=== PATIENT | male | born 1945 | race Caucasian/White ===

== ENCOUNTER 2017-12-24 15:00 | Outpatient (RCR) | payer MEDICARE, MEDICAID, SELFPAY | END 2017-12-24 15:01 | disposition home or self-care (01) | LOC: PT 15:00 | PROVIDERS: PCP Family Medicine; Visit Provider Nurse Practitioner Family | DX: I70.235 Atherosclerosis of native arteries of right leg with ulceration of other part of foot (principal); L97.521 Non-pressure chronic ulcer of other part of left foot limited to breakdown of skin | CPT/HCPCS: 97162; 97597 ==

== ENCOUNTER → 2021-03-07 10:09 | Outpatient (CLI) | payer MEDICARE, MEDICAID, SELFPAY ==
--- NOTE | 2021-03-07 10:27 | XR_ITS ---
PROCEDURE: XR FOOT WT BEARING LT 3V CLINICAL INDICATION: infected heel ulcer COMPARISON: No exams were available for comparison FINDINGS: No fracture or dislocation. No lytic or blastic change. There is normal mineralization. The joint spaces are well-preserved. No significant degenerative/arthritic changes. No erosive changes evident. Other findings: Small calcaneal spur.. No bony erosive changes evident. Pes planus noted. IMPRESSION: No acute findings. Dictated by: Kolby Chao MD 03/07/2021 11:33 Kolby Chao MD in [place] 03/07/2021 11:33
== END ==
PROVIDERS: PCP Nurse Practitioner; Visit Provider Nurse Practitioner
DX: L97.409 Non-pressure chronic ulcer of unspecified heel and midfoot with unspecified severity (principal); Z51.89 Encounter for other specified aftercare
CPT/HCPCS: 73630

== ENCOUNTER → 2021-03-24 10:01 | Outpatient (CLI) | payer MEDICARE, MEDICAID, SELFPAY ==
[2021-03-24 10:38] LABS: Basophils % 0.4 % (0.1-2.0); Eosinophils # 0.1 K/mm3 (0.0-0.4); Eosinophils % 1.7 % (0.1-12.0); Lymphocytes # 2.6 K/mm3 (0.7-4.5); Lymphocytes % 30.9 % (10-50); Mean Corpuscular HGB Conc 32.5 g/dL (31.8-35.4); Mean Corpuscular Volume 89.2 fl (80-94); Monocytes # 0.6 K/mm3 (0.1-1.0); Monocytes % 7.6 % (1.7-9.3); Neutrophils # 4.9 K/mm3 (1.8-7.8); Neutrophils % 59.4 % (37.0-80.0); Platelet Count 330 K/mm3 (142-424); Red Blood Count 5.15 M/mm3 (4.60-6.20); Red Cell Distribution Width 13.9 % (11.5-17.5); White Blood Count 8.3 K/mm3 (4.8-10.8)
[2021-03-24 10:57] LABS: Chloride 103 mmol/L (98-107); Sodium 139 mmol/L (136-145)
[2021-03-24 10:59] LABS: Alanine Aminotransferase 24 U/L (12-78); Aspartate Amino Transferase 32 U/L (17-59); Blood Urea Nitrogen 15 mg/dl (9-20); Estimated Glomerular Filt Rate 111 ml/min (>60); GFR (African American) 134 ML/MIN (>60)
[2021-03-24 11:00] LABS: Albumin Level 4.8 g/dl (3.5-5.0); Albumin/Globulin Ratio 1.6 (1.1-1.8); Alkaline Phosphatase 113 U/L (38-126); Bilirubin,Total 0.7 mg/dl (0.2-1.3); Calcium 10.1 mg/dl (8.4-10.2); Carbon Dioxide 25 mmol/L (22.0-30.0); Glucose 88 mg/dl (74-100); Total Protein,Serum 7.8 g/dl (6.3-8.2)
[2021-03-24 11:05] LABS: Erythrocyte Sedimentation Rate 4 mm/hr (0-20)
[2021-03-24 11:07] LABS: C-Reactive Protein 7.1 mg/L (0-4)
== END ==
PROVIDERS: Visit Provider Nurse Practitioner
DX: L89.622 Pressure ulcer of left heel, stage 2
CPT/HCPCS: 36415; 80053; 85025; 85651; 86140

== ENCOUNTER → 2022-10-23 14:41 | Outpatient (CLI) | payer MEDICARE, MEDICAID, SELFPAY ==
--- NOTE | 2022-10-23 14:45 | US_ITS ---
FINAL REPORT CLINICAL HISTORY: decreased pulses, bilateral wounds great toes and 2nd digits, possible gangrene, previous smoker, hx ME, bilateral claudication, bilateral rest pain. FINDINGS: ANKLE-BRACHIAL PRESSURE INDICES Pressure indices are as follows: RIGHT LOWER EXTREMITY: Ankle-brachial pressure index: 1.2 Comments: Normal LEFT LOWER EXTREMITY: Ankle-brachial pressure index: 1.1 Comments: Normal CONCLUSION: No evidence of significant obstructive peripheral vascular disease of the lower extremities Reviewed, Interpreted and Dictated by Harris Powell III, MD Transcribed by Jinny Torres Authenticated and [facility]
--- NOTE | 2022-10-23 14:47 | XR_ITS ---
FINAL REPORT CLINICAL HISTORY: wound FINDINGS: RIGHT FOOT 3 views of the right foot were obtained. There is no acute fracture or dislocation. Visualized joint spaces are normally aligned. Soft tissues are unremarkable. There is no evidence of bony erosion. IMPRESSION: No acute bony abnormality or evidence of bony erosion. Reviewed, Interpreted and Dictated by Harris Powell III, MD Transcribed by Belle Jacobs Authenticated and [facility]
--- NOTE | 2022-10-23 14:47 | XR_ITS ---
FINAL REPORT CLINICAL HISTORY: wound FINDINGS: RIGHT ANKLE 3 views of the right ankle were obtained. There is no acute fracture or dislocation. The mortise is intact. Visualized joint spaces are normally aligned. Soft tissue calcifications are noted. IMPRESSION: No acute bony abnormality or evidence of bony erosion. Reviewed, Interpreted and Dictated by Harris Powell III, MD Transcribed by Belle Jacobs Authenticated and [facility]
--- NOTE | 2022-10-23 14:47 | XR_ITS ---
FINAL REPORT CLINICAL HISTORY: wound FINDINGS: LEFT ANKLE Three views demonstrate no acute fracture or dislocation. The visualized joint spaces are normally aligned. There is a plantar calcaneal spur. The soft tissues are unremarkable. IMPRESSION: No acute bony abnormality or evidence of bony erosion. Reviewed, Interpreted and Dictated by Harris Powell III, MD Transcribed by Belle Jacobs Authenticated and [facility]
--- NOTE | 2022-10-23 14:47 | XR_ITS ---
FINAL REPORT CLINICAL HISTORY: ulcer FINDINGS: LEFT FOOT Three views of the left foot demonstrate no acute fracture or dislocation. There is no evidence of bony erosion. There is a small plantar spur. The visualized joint spaces are normally aligned. The soft tissues are unremarkable. IMPRESSION: No acute bony abnormality. No evidence of bony erosion. Reviewed, Interpreted and Dictated by Harris Powell III, MD Transcribed by Belle Jacobs Authenticated and . [facility]
[2022-10-23 16:27] LABS: Basophils # 0.1 K/mm3 (0-0.2); Basophils % 0.5 % (0.1-2.0); Eosinophils # 0.1 K/mm3 (0.0-0.4); Eosinophils % 0.7 % (0.1-12.0); Hematocrit 44.7 % (42.0-52.0); Hemoglobin 14.2 g/dL (14.1-18.0); Lymphocytes # 1.8 K/mm3 (0.7-4.5); Lymphocytes % 18.1 % (10-50); Mean Corpuscular HGB Conc 31.8 g/dL (31.8-35.4); Mean Corpuscular Hemoglobin 29.1 pg (27.0-31.2); Mean Corpuscular Volume 91.6 fl (80-94); Mean Platelet Volume 8.8 fl (7.4-10.4); Monocytes # 0.8 K/mm3 (0.1-1.0); Neutrophils # 7.3 K/mm3 (1.8-7.8); Neutrophils % 72.6 % (37.0-80.0); Platelet Count 450 K/mm3 (142-424); Red Blood Count 4.89 M/mm3 (4.60-6.20); Red Cell Distribution Width 14.3 % (11.5-17.5)
[2022-10-23 17:03] LABS: Chloride 101 mmol/L (98-107)
[2022-10-23 17:04] LABS: Potassium 4.4 mmoL/L (3.5-5.1); Sodium 140 mmol/L (136-145)
[2022-10-23 17:06] LABS: Alanine Aminotransferase 22 U/L (12-78); Albumin Level 4.1 g/dl (3.5-5.0); Albumin/Globulin Ratio 1.2 (1.1-1.8); Alkaline Phosphatase 102 U/L (38-126); Anion Gap 14.4 mEq/L (5-15); Aspartate Amino Transferase 24 U/L (17-59); Bilirubin,Total 0.6 mg/dl (0.2-1.3); Blood Urea Nitrogen 17 mg/dl (9-20); Carbon Dioxide 29 mmol/L (22.0-30.0); Estimated Glomerular Filt Rate 94 ml/min (>60); GFR (African American) 114 ML/MIN (>60); Globulin 3.3 g/dL (1.3-3.2); Glucose 99 mg/dl (74-100); Total Protein,Serum 7.4 g/dl (6.3-8.2)
[2022-10-23 17:07] LABS: Calcium 9.8 mg/dl (8.4-10.2)
[2022-10-23 17:17] LABS: C-Reactive Protein 66.7 mg/L (0-4)
[2022-10-23 18:00] LABS: Erythrocyte Sedimentation Rate 22 mm/hr (0-20)
== END ==
PROVIDERS: PCP Nurse Practitioner; Visit Provider Nurse Practitioner Family
DX: R09.89 Other specified symptoms and signs involving the circulatory and respiratory systems (principal); Z51.89 Encounter for other specified aftercare; L89.622 Pressure ulcer of left heel, stage 2; B95.7 Other staphylococcus as the cause of diseases classified elsewhere; B95.2 Enterococcus as the cause of diseases classified elsewhere
CPT/HCPCS: 36415; 73610; 73630; 80053; 85025; 85651; 86140; 87070; 87077; 87186; 87205; 93923

== ENCOUNTER 2023-10-04 08:42 | Emergency (ER) | payer MEDICARE, MEDICAID, SELFPAY ==
[2023-10-04 08:43] VITALS: BP 144/88; PULSE 95; RESP 18; TEMP 36.8; O2SAT 97; BMI 20.4
--- NOTE | 2023-10-04 08:47 | PC.NURSE ---
Dr. Andino at [facility] for patient eval
--- NOTE | 2023-10-04 08:57 | CT_ITS ---
FINAL REPORT TECHNIQUE: Axial images were obtained of the cervical spine by computed tomography. Coronal and sagittal reconstruction process performed. This study was performed with techniques to keep radiation doses as low as reasonably achievable (ALARA). Individualized dose reduction techniques using automated exposure control or adjustment of mA and/or kV according to the patient''s size were employed. CLINICAL HISTORY: fall, head/face injury COMPARISON: None FINDINGS: There is advanced disc space narrowing of C3-4, C4-5, C5-6, and C6-7. There is endplate sclerosis. Posterior osteophyte formation is noted. C2-3: No significant spinal canal stenosis or neuroforaminal narrowing. C3-4: Large right posterolateral disc protrusion with osteophytes. High-grade right neuroforaminal narrowing. C4-5: Endplate hypertrophy moderate to high-grade bilateral neuroforaminal narrowing. C5-6: Moderate to high-grade bilateral neuroforaminal narrowing. C6-7: Mild endplate hypertrophy. Mild bilateral neuroforaminal narrowing. C7-T1: No significant spinal canal stenosis or neuroforaminal narrowing. IMPRESSION: Advanced changes of degenerative disc disease with high-grade neuroforaminal narrowing on the right at C3-4 and bilaterally at C4-5 and C5-6. Reviewed, Interpreted and Dictated by Everardo Luna MD Transcribed by Nelida Price Authenticated and [facility]
--- NOTE | 2023-10-04 08:57 | CT_ITS ---
FINAL REPORT TECHNIQUE: Axial CT images were performed through the head. Coronal reformatted images were submitted. This study was performed with techniques to keep radiation doses as low as reasonably achievable (ALARA). Individualized dose reduction techniques using automated exposure control or adjustment of mA and/or kV according to the patient's size were employed. CLINICAL HISTORY: fall, head/face injury COMPARISON: None FINDINGS: There is moderate atrophy. There are moderate changes of chronic microvascular ischemia. There is encephalomalacia within the anterior limb of the right internal capsule. There is no evidence of hemorrhage. There is no mass or edema identified. There is no abnormal extra-axial fluid seen. There is old healed fracture deformity of the right maxillary sinus involving the anterior and lateral pradhan. There is scalp edema in the right frontal region. IMPRESSION: Scalp edema without acute intracranial process. Reviewed, Interpreted and Dictated by Everardo Luna MD Transcribed by Nelida Price Authenticated and . [facility]
--- NOTE | 2023-10-04 08:57 | CT_ITS ---
FINAL REPORT TECHNIQUE: Multiple axial CT sections were performed through the face without IV contrast. Coronal reconstruction images were performed. This study was performed with techniques to keep radiation doses as low as reasonably achievable (ALARA). Individualized dose reduction techniques using automated exposure control or adjustment of mA and/or kV according to the patient's size were employed. CLINICAL HISTORY: fall, head/face injury COMPARISON: None FINDINGS: There is old healed fracture deformity at the right anterior and lateral wall of the maxillary sinus. There is mild indentation of the superior right maxillary sinus, probably due to old orbital floor fracture. There are minimal changes of chronic sinusitis in the left maxillary sinus. There is no fracture. There are no air-fluid levels. IMPRESSION: Chronic changes without acute abnormality. Reviewed, Interpreted and Dictated by Everardo Luna MD Transcribed by Nelida Price Authenticated and [facility]
--- NOTE | 2023-10-04 08:59 | ED_ITS ---
Discharge Plan Disposition Patient Disposition: Home, Self-Care Prescriptions Prescriptions: No Action mupirocin 2 % ointment TOPICAL lisinopril 20 mg tablet 20 mg PO cephalexin 500 mg capsule 500 mg PO ticagrelor 90 mg tablet 90 mg PO sertraline 25 mg tablet 25 mg PO ropinirole 2 mg tablet 2 mg PO omeprazole 40 mg capsule,delayed release(DR/EC) 40 mg PO atorvastatin 40 mg tablet 40 mg PO doxycycline hyclate 100 mg capsule 100 mg PO BID 14 Days Qty: 28 0RF levofloxacin 750 mg tablet 750 mg PO DAILY 14 Days Qty: 14 0RF Santyl 250 unit/gram ointment 1 applic topical DAILY Qty: 30 4RF Rx Instructions: Apply to wounds as directed once daily for 30 days. right 1st 3.0 x 3.0 cm, 2nd 2.0 x 2.0 cm, left 1st 2.0 x 2.5 cm, 2nd 2.0 x 1.5 cm, 4th 1.0 x 1.0 cm Activity Restrictions/Add. Instructions Additional Instructions/Restrictions: You have a small nondisplaced maxillary sinus fracture which was read by radiologist is chronic but given your injury and tenderness in this area this is most likely an acute fracture. This will not need surgical intervention you may follow-up with your primary care doctor or with an ENT or facial surgeon if he would like. No evidence of any intracranial injury or bleeding or cervical spine injury or bleeding. The Dermabond and Steri-Strip apparatus should fall off in 1 to 2 weeks. Return with any worsening symptoms. Clinical Impressions Clinical Impression: Minor head injury, Face lacerations, Fall, Closed fracture of maxillary sinus Discharge ED Provider: Ok Andino General Adult HPI General Chief complaint: Fall Stated complaint: [id number] fell, hit head,wound Time Seen by Provider: 10/04/23 08:47 History of Present Illness HPI narrative: Is a 78-year-old male presenting after a fall and head injury. States that he has cataracts which caused him to be unable to see very well without with his dog this morning could not see and had a mechanical fall where he fell and struck his face on his 's 4 moore . Patient states that he had some bleeding but had no loss of conscious no persistent nausea vomiting or changes in mental status. Also requests a tetanus shot because he does not know when the last time he had a tetanus vaccination was. Related Data Home Medications Medication Instructions Recorded Confirmed atorvastatin 40 mg tablet 40 mg PO 03/07/21 10/30/22 cephalexin 500 mg capsule 500 mg PO 03/07/21 10/30/22 lisinopril 20 mg tablet 20 mg PO 03/07/21 10/30/22 mupirocin 2 % topical ointment topical 03/07/21 10/30/22 omeprazole 40 mg capsule,delayed 40 mg PO 03/07/21 10/30/22 release ropinirole 2 mg tablet 2 mg PO 03/07/21 10/30/22 sertraline 25 mg tablet 25 mg PO 03/07/21 10/30/22 ticagrelor 90 mg tablet 90 mg PO 03/07/21 10/30/22 Previous Rx's Medication Instructions Recorded doxycycline hyclate 100 mg capsule 100 mg PO BID 14 days #28 caps 10/30/22 levofloxacin 750 mg tablet 750 mg PO DAILY 14 days #14 tabs 10/30/22 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 Social History (Reviewed 10/30/22 @ 10:07 by Alesia Patterson [facility]) Smoking Status: Former smoker tobacco type: smokeless tobacco alcohol intake: current current occupational status: retired Travel in the last 8 weeks: None ROS Obtained: Yes All systems reviewed & no additional complaints except as documented Physical Exam General General appearance: alert Expanded Head Exam Head image: 1. laceration 2. laceration ; both of which are superficial with minimal gaping edges Respiratory Respiratory exam: Present normal lung sounds bilaterally Cardiovascular Cardiovascular exam: Absent tachycardia Neurological Exam Neurological exam: Present alert and oriented X3 Medical Decision Making Anthony Inquiry Pt receiving controlled substance: No Vital Signs: 10/04/23 08:43 10/04/23 09:00 Temperature 98.2 F Temperature Source Oral Pulse Rate 83 Pulse Rate [Right] 95 H Respiratory Rate 18 20 Blood Pressure 133/91 H Blood Pressure [Right Arm] 144/88 H Blood Pressure Mean 110 Blood Pressure Mean [Right Arm] 106 Blood Pressure Source [Right Arm] Automatic Cuff 02 Sat by Pulse Oximetry 97 98 Oxygen Delivery Method Room Air Orders (Tests/Meds): ED MEDICATIONS Discontinued Medications Generic Name Dose Route Start Last Admin Trade Name Daniele PRN Reason Stop Dose Admin Tetanus/Reduced Diphtheria/Acell Pertussis 0.5 ml 10/04/23 08:57 10/04/23 09:15 Tet/Diphth/Pert-Adult 0.5ml Syringe IM 10/04/23 08:58 0.5 ml .ONCE ONE Administration ORDERS Category Date Time Status CT cervical spine wo con Stat Cat Scan 10/04/23 08:[address] facial bones wo con Stat Cat Scan 10/04/23 08:[address] head/brain wo con Stat Cat Scan 10/04/23 08:57 Taken Medical Decision Narrative: Patient is a 78-year-old male with above history GCS of 15 nonfocal neurologic exam has a facial/head injury. Given his age we will get a CT scan of his head face and cervical spine. His lacerations were closed with Steri-Strips and Dermabond. Tetanus was updated will reassess after CT scans no injuries e lsewhere. CTs performed which I personally interpreted which showed no acute intracranial abnormality no acute cervical spine fracture dislocation there is degenerative changes but nothing acute. Regarding his face this was read as normal by radiology but on my personal interpretation there is a small nondisplaced maxillary sinus fracture and patient is focally tender there radiology read this is likely chronic but I believe this is an acute fracture. This should not need surgical intervention very mild injury I explained this to the patient he has been advised he can follow-up with his primary care doctor with an ENT or facial surgeon if he would like otherwise this should heal on its own. No indication for any prophylactic antibiotics. Wound management discussed patient was discharged in stable condition with return precautions emphasized. Procedures Laceration Laceration 1: Site: face Side (If applicable): right Size (cm): 5 Description: linear Depth: simple, single layer Pre-repair: irrigated extensively Skin layer closed with: Dermabond Laceration 2: Side (If applicable): right Size (cm): 1 Description: irregular and clean Depth: simple, single layer Pre-repair: irrigated extensively Skin layer closed with: Dermabond (and steri strips on both lacerations ) Critical Care Critical Care Time Critical Care Time: No
[2023-10-04 09:00] VITALS: BP 133/91; PULSE 83; RESP 20; O2SAT 98
[2023-10-04] MEDS: TET/DIPHTH/PERT-ADULT 0.5ML SYRINGE 0.5 ML IM (09:15)
--- NOTE | 2023-10-04 09:30 | PC.NURSE ---
PT TO CT
--- NOTE | 2023-10-04 10:59 | PC.NURSE ---
Called radiology to check the status of facial bone ct scan. Prelim read are not available to images sent. [facility] is attempting to re-send the correct images.
--- NOTE | 2023-10-04 11:25 | PC.NURSE ---
DR LYONS AT BEDSIDE TO UPDATE PT AND FAMILY
[2023-10-04 11:33] VITALS: BP 133/91; PULSE 83; RESP 20; TEMP 36.8; O2SAT 98
== END 2023-10-04 11:34 | disposition home or self-care (01) ==
PROVIDERS: Emergency Provider Student in an Organized Health Care Education/Training Program; PCP Nurse Practitioner
DX: S02.40CA Maxillary fracture, right side, initial encounter for closed fracture; S01.81XA Laceration without foreign body of other part of head, initial encounter; I10 Essential (primary) hypertension; K21.9 Gastro-esophageal reflux disease without esophagitis; Z23 Encounter for immunization; Z87.891 Personal history of nicotine dependence; W22.8XXA Striking against or struck by other objects, initial encounter
CPT/HCPCS: 12011; 70450; 70486; 72125; 90471; 90715; 99285

== ENCOUNTER 2025-08-16 15:34 | Emergency (ER) | payer MEDICARE, MEDICAID, SELFPAY ==
--- OUTSIDE RECORDS SUMMARY | 2025-07-02 05:15 | XMS_ITS | Continuity of Care Document ---
Author Organization [facility] Phone Care Team Providers Care Timber Incisor Operator Name Role Phone BRENNA DANG Primary Care THAD WALKER Unavailable THAD WALKER Primary Attending THAD WALKER Admitting ALLERGIES AND ADVERSE REACTIONS ALLERGIES AND ADVERSE REACTIONS Code System Allergy Substance Adverse Reaction Date Reaction (Severity) Comment Status Reported By Updated By No Known Allergies [email or web address] on January 21, 2025 8:43:30 PM [facility] FAMILY HISTORY RELATION: Father Status: LIVING SNOMED-CT Diagnosis Age At Onset [id number] Alzheimer's disease RELATION: Father Status: Cause of : O/E - senile - old age Age at : 90's SNOMED-CT Diagnosis Age At Onset Information not available RELATION: Mother Status: Cause of : Unknown Age at : 70's SNOMED-CT Diagnosis Age At Onset [id number] Heart disease RELATION: Mother Status: Cause of : Unknown Age at : Unknown SNOMED-CT Diagnosis Age At Onset Information not available RESULTS Patient: NAYA Bruce JR Date of : 1945 LABORATORY RESULTS ORDER 100: CBC AUTO W DIFF ( LOINC: 33820-6) ORDER DATE: July 01, 2025 1:24:00 AM [facility] Specimen Source: Whole Blood Specimen Type: Whole blood s ample PERFORMING LAB: [address] [id number] Result Comment: Final Result Date: July 01, 2025 2:26:00 AM UTC (TECH: EB1) LOINC TEST FLAG RESULT REFERENCE RANGE UPDA VIVEK BY 6690-2 Leukocytes [#/volume] in Blood by Automated count N 8.4 10^3/uL 4.5 10^3/uL - 11.5 10^3/uL July 01, 2025 2:26:00 AM UTC (TECH: EB1) 789-8 Erythrocytes [#/volume] in Blood by Automated count N 4.91 10^6/uL 4.25 10^6/uL - 5.57 10^6/uL July 01, 2025 2:26:00 AM UTC (TECH: EB1) 718-7 Hemoglobin [Mass/volume] in Blood N 14.5 g/dL 13.5 g/dL - 17.2 g/dL July 01, 2025 2:26:00 AM UTC (TECH: EB1) 81417-5 Hematocrit [Volume Fraction] of Blood N 43.6 % 42.0 % - 52.0 % July 01, 2025 2:26:00 AM UTC (TECH: EB1) 787-2 Erythrocyte mean corpuscular volume [Entitic volume] by Automated count N 88.8 fl 80 fl - 95 fl July 01, 2025 2:26:00 AM UTC (TECH: EB1) 68246-9 Erythrocyte mean corpuscular hemoglobin [Entitic mass] in Blood from [place] by Automated count N 29.5 pg 27.0 pg - 34.0 pg July 01, 2025 2:26:00 AM UTC (TECH: EB1) 13752-9 Erythrocyte mean corpuscular hemoglobin concentration [Mass/volume] in Blood from Fetus by Automated count N 33.3 g/dL 32.0 g/dL - 36.0 g/dL July 01, 2025 2:26:00 AM UTC (TECH: EB1) 22431-4 Platelets [#/volume] in Blood N 220 10^3/uL 150 10^3/uL - 450 10^3/uL July 01, 2025 2:26:00 AM UTC (TECH: EB1) 52289-8 Erythrocyte distribution width [Ratio] H 15.4 % 12.3 % - 15.1 % July 01, 2025 2:26:00 AM UTC (TECH: EB1) 12360-6 Platelet mean volume [Entitic volume] in Blood by Automated count H 12.3 fl 7.4 fl - 10.4 fl July 01, 2025 2:26:00 AM UTC (TECH: EB1) 89150-4 Granulocytes/100 leukocytes in Blood by Automated count N 41.3 % 40 % - 75 % July 01, 2025 2:26:00 AM UTC (TECH: EB1) 736-9 Lymphocytes/100 leukocytes in Blood by Automated count N 29.2 % 15 % - 57 % July 01, 2025 2:26:00 AM UTC (TECH: EB1) 5905-5 Monocytes/100 leukocytes in Blood by Automated count H 21.7 % 4.0 % - 12.0 % July 01, 2025 2:26:00 AM UTC (TECH: EB1) 713-8 Eosinophils/100 leukocytes in Blood by Automated count N 0.7 % 0.0 % - 4.0 % July 01, 2025 2:26:00 AM UTC (TECH: EB1) 706-2 Basophils/100 leukocytes in Blood by Automated count N 0.4 % 0.0 % - 1.0 % July 01, 2025 2:26:00 AM UTC (TECH: EB1) 96693-8 Immature granulocytes [#/volume] in Blood H 6.7 % 0.0 % - 0.8 % June 2:26:00 AM UTC (TECH: EB1) 50356-9 Granulocytes [#/volume] in Blood by Automated count N 3.48 10^3/uL July 01, 2025 2:26:00 AM UTC (TECH: EB1) 731-0 Lymphocytes [#/volume] in Blood by Automated count N 2.45 10^3/uL July 01, 2025 2:26:00 AM UTC (TECH: EB1) 742-7 Monocytes [#/volume] in Blood by Automated count N 1.82 10^3/uL July 01, 2025 2:26:00 AM UTC (TECH: EB1) 711-2 Eosinophils [#/volume] in Blood by Automated count N 0.06 10^3/uL July 01, 2025 2:26:00 AM UTC (TECH: EB1) 704-7 Basophils [#/volume] in Blood by Automated count N 0.03 10^3/uL July 01, 2025 2:26:00 AM UTC (TECH: EB1) 34414-5 Immature granulocytes [#/volume] in Blood N 0.56 10^3/uL June 2:26:00 AM UTC (TECH: EB1) 32466-7 Manual differential performed [Presence] in Blood N YES July 01, 2025 2:26:00 AM UTC (TECH: EB1) 44843-5 Neutrophils.segmente d/100 leukocytes in Blood by Automated count L 31 % 36 % - 66 % July 01, 2025 2:26:00 AM UTC (TECH: EB1) 52592-8 Neutrophils.band form/100 leukocytes in Blood by Automated count N 1 % 0.0 % - 8.0 % July 01, 2025 2:26:00 AM UTC (TECH: EB1) 736-9 Lymphocytes/100 leukocytes in Blood by Automated count H 42 % 15 % - 41 % July 01, 2025 2:26:00 AM UTC (TECH: EB1) 5905-5 Monocytes/100 leukocytes in Blood by Automated count H 23 % 2 % - 9 % July 01, 2025 2:26:00 AM UTC (TECH: EB1) 99960-3 Lymphocytes Variant/100 leukocytes in Blood by Automated count H 2 % 0 % - 0 % July 01, 2025 2:26:00 AM UTC (TECH: EB1) 83883-9 Metamyelocytes [#/volume] in Blood N 1 % 0 % - 1 % June 2:26:00 AM UTC (TECH: EB1) 84524-7 Erythrocytes [Morphology] in Blood by Automated count N NORMAL NORMAL July 01, 2025 2:26:00 AM UTC (TECH: EB1) 778-1 Platelets [#/volume] in Blood by Manual count N ADEQUATE ADEQUATE July 01, 2025 2:26:00 AM UTC (TECH: EB1) 9317-9 Platelet adequacy [Presence] in Blood by Light microscopy N NORMAL NORMAL June 2:26:00 AM UTC (TECH: EB1) ORDER 200: BASIC METABOLIC P ARAVIND (LOINC: 41132-7) ORDER DATE: July 01, 2025 1:24:00 AM [facility] Specimen Source: Plasma Specimen Type: Plasma specim en PERFORMING LAB: [address] [id number] Result Comment: Final Result Date: July 01, 2025 2:07:00 AM UT (TECH: EB1) LOINC TEST FLAG RESULT REFERENCE RANGE UPDA VIVEK BY 2951-2 Sodium [Moles/volume] in Serum or Plasma N 141 mmol/L 136 mmol/L - 145 mmol/L July 01, 2025 2:07:00 AM UT (TECH: EB1) 2823-3 Potassium [Moles/volume] in Serum or Plasma N 3.6 mmol/L 3.5 mmol/L - 5.1 mmol/L July 01, 2025 2:07:00 AM UT (TECH: EB1) 5-0 Chloride [Moles/volume] in Serum or Plasma N 105 mmol/L 98 mmol/L - 107 mmol/L July 01, 2025 2:07:00 AM UT (TECH: EB1) 2027-9 Carbon dioxide, total [Moles/volume] in Serum or Plasma N 25 mmol/L 21 mmol/L - 32 mmol/L July 01, 2025 2:07:00 AM UT (TECH: EB1) 49806-6 Anion gap 3 in Serum or Plasma N 11.0 July 01, 2025 2:07:00 AM UT (TECH: EB1) 2345-7 Glucose [Mass/volume] in Serum or Plasma N 100 mg/dL 70 mg/dL - 110 mg/dL July 01, 2025 2:07:00 AM UTC (TECH: EB1) 3094-0 Urea nitrogen [Mass/volume] in Serum or Plasma N 14 mg/dL 7 mg/dL - 18 mg/dL July 01, 2025 2:07:00 AM UTC (TECH: EB1) 2160-0 Creatinine [Mass/volume] in Serum or Plasma N 0.9 mg/dL 0.8 mg/dL - 1.3 mg/dL July 01, 2025 2:07:00 AM UT (TECH: EB1) 3097-3 Urea nitrogen/Creatinine [Mass Ratio] in Serum or Plasma N 15.6 9 - July 01, 2025 2:07:00 AM UT (TECH: EB1) 67719-9 Glomerular filtration rate/1.73 sq M.predicted by Creatinine-based formula (MDRD) N 87 mL/min >60 July 01, 2025 2:07:00 AM UT (TECH: EB1) 40126-8 Osmolality of Serum or Plasma by calculated by sum of electrolytes N 294 mosm/kg 275 mosm/kg - 301 mosm/kg July 01, 2025 2:07:00 AM UT (TECH: EB1) 41785-2 Calcium [Mass/volume] in Serum or Plasma N 10.0 mg/dL 8.5 mg/dL - 10.1 mg/dL July 01, 2025 2:07:00 AM UT (TECH: EB1) ORDER 300: TROPONIN QUANT (L OINC: 64893-1) ORDER DATE: July 01, 2025 1:24:00 AM UT Specimen Source: Plasma Specimen Type: Plasma specim en PERFORMING LAB: [address] [id number] Result Comment: Final Result Date: July 01, 2025 2:07:00 AM [facility] (TECH: EB1) LOINC TEST [place] [address]-5 Troponin I.cardiac panel - Serum or Plasma by High sensitivity method N 19 ng/L 0 ng/L - 76 ng/L June 2:07:00 AM [facility] (TECH: EB1) ORDER 500: ALCOHOL ETHANOL Q UANT (LOINC: 5645-7) ORDER DATE: July 01, 2025 1:24:00 AM UT Specimen Source: Serum/Plasm a Specimen Type: Acellular blo od (serum or plasma) specimen PERFORMING LAB: [address] [id number] Result Comment: Final Result Date: July 01, 2025 2:07:00 AM UT (TECH: EB1) LOINC TEST FLAG RESULT REFERENCE RANGE UPDA VIVEK BY 5645-7 Ethanol [Mass/volume] in Urine N <3 mg/dL 0 mg/dL - 10 mg/dL July 01, 2025 2:07:00 AM UT (TECH: EB1) ORDER 600: URINE DRUG SCREEN - EXL MAX (LOINC: 40609-0) ORDER DATE: July 01, 2025 1:24:00 AM UTC Specimen Source: URINE Specimen Type: Urine specime n PERFORMING LAB: [facility] [address] [facility] [id number] Result Comment: Final Result Date: July 01, 2025 3:20:00 AM UTC (TECH: EB1) LOINC TEST FLAG [place] [address]-8 Amphetamine+Methamph et amine [Presence] in Urine N NEGATIVE NEGATIVE July 01, 2025 3:20:00 AM UTC (TECH: EB1) 3377-9 Barbiturates [Presence] in Urine N NEGATIVE NEGATIVE June 3:20:00 AM UTC (TECH: EB1) 81979-6 Benzodiazepine metabolites [Presence] in Urine by Screen method N NEGATIVE NEGATIVE July 01, 2025 3:20:00 AM UTC (TECH: EB1) 3414-0 Buprenorphine [Presence] in Urine N NEGATIVE NEGATIVE June 3:20:00 AM UTC (TECH: EB1) 3397-7 Cocaine [Presence] i n Urine N NEGATIVE NEGATIVE July 01, 2025 3:20:00 AM UTC (TECH: EB1) 33973-9 Methadone [Presence] in Specimen N NEGATIVE NEGATIVE July 01, 2025 3:20:00 AM UTC (TECH: EB1) 86505-3 Opiates [Mass/volume ] in Specimen N NEGATIVE NEGATIVE July 01, 2025 3:20:00 AM UTC (TECH: EB1) 35860-3 oxyCODONE [Presence] in Specimen N NEGATIVE NEGATIVE July 01, 2025 3:20:00 AM UTC (TECH: EB1) 3427-2 Cannabinoids [Presence] in Urine N NEGATIVE NEGATIVE June 3:20:00 AM UTC (TECH: EB1) 79645-2 Phencyclidine [Presence] in Specimen N NEGATIVE NEGATIVE July 01, 2025 3:20:00 AM UTC (TECH: EB1) 42211-0 Fentanyl [Presence] in Urine N NEGATIVE NEGATIVE July 01, 2025 3:20:00 AM UTC (TECH: EB1) 43539-6 Tricyclic antidepressants [Presence] in Specimen N NEGATIVE NEGATIVE July 01, 2025 3:20:00 AM UTC (TECH: EB1) 00923-8 Internal control result N PASS PASS July 01, 2025 3:20:00 AM UTC (TECH: EB1) ORDER 700: UA AND MICRO/CULT IF INDICATED (LOINC: 55545-4) ORDER DATE: July 01, 2025 1:24:00 AM UTC Specimen Source: URINE Specimen Type: Urine specime n PERFORMING LAB: [address] [id number] Result Comment: Final Result Date: July 01, 2025 2:48:00 AM UTC (TECH: EB1) LOINC TEST FLAG RESULT REFERENCE RANGE UPDA VIVEK BY 5778-6 Color of Urine N yellow YELLOW Septe [facility] 2024 2:48:00 AM UTC (TECH: EB1) 5767-9 Appearance of Urine N clear CLEAR July 01, 2025 2:48:00 AM UTC (TECH: EB1) 5792-7 Glucose [Mass/volume ] in Urine by Test strip N NORM NORMAL July 01, 2025 2:48:00 AM UTC (TECH: EB1) 55668-1 Bilirubin.total [Mass/volume] in Urine by Automated test strip N NEGATIVE NEGATIVE July 01 2:48:00 AM UTC (TECH: EB1) 5797-6 Ketones [Mass/volume ] in Urine by Test strip N NEGATIVE NEGATIVE July 01, 2025 2:48:00 AM UTC (TECH: EB1) 2965-2 Specific gravity of Urine N 1.025 1.005 - 1.035 July 01 2:48:00 AM UTC (TECH: EB1) 61890-3 Erythrocytes [#/volume] in Urine by Automated test strip N 25 (1+) /mcL NEGATIVE June 152024 2:48:00 AM UTC (TECH: EB1) 84035-3 pH of Urine by Automated test strip N 5.00 5.0 - 7.5 June 152024 2:48:00 AM UTC (TECH: EB1) 71297-8 Protein [Presence] i n Urine by Test strip N 100 (2+) mg/dL NEGATIVE June 2:48:00 AM UTC (TECH: EB1) 36353-8 Urobilinogen [Mass/volume] in Urine by Automated test strip N 1 mg/dL NORMAL July 01 2:48:00 AM UTC (TECH: EB1) 41645-5 Nitrate [Presence] i n Urine N NEGATIVE NEGATIVE July 01 2:48:00 AM UTC (TECH: EB1) 57483-9 Leukocytes [#/volume ] in Urine by Test strip N TRACE () /mcL NEGATIVE July 01, 2025 2:48:00 AM UTC (TECH: EB1) 07402-1 Other elements in Urine sediment N NOT REQUIRED July 01 2:48:00 AM UTC (TECH: EB1) 10332-6 Microscopic observation [Identifier] in Urine sediment by Light microscopy N YES July 01 2:48:00 AM UTC (TECH: EB1) 92581-8 Erythrocytes [#/area ] in Urine sediment by Microscopy high power field N 5-10 0-3 July 01 2:48:00 AM UTC (TECH: EB1) 5821-4 Leukocytes [#/area] in Urine sediment by Microscopy high power field N 5-10 NONE SEEN July 01 2:48:00 AM UTC (TECH: EB1) 07243-8 Epithelial cells.squamous [#/area] in Urine sediment by Microscopy high power field N 0-3 NONE SEEN July 01 2:48:00 AM UTC (TECH: EB1) 5769-5 Bacteria [#/area] in Urine sediment by Microscopy high power field N TRACE NONE SEEN July 01 2:48:00 AM UTC (TECH: EB1) 55245-0 Calcium oxalate crystals [#/area] in Urine sediment by Microscopy high power field N 5-10 NONE SEEN July 01 2:48:00 AM UTC (TECH: EB1) 86537-9 Mucus [#/area] in Urine sediment by Microscopy low power field N 1+ NONE SEEN July 01 2:48:00 AM UTC (TECH: EB1) 7446-1 Amorphous sediment [Presence] in Urine sediment by Light microscopy 1+ NONE SEEN July 01 2:48:00 AM UTC (TECH: EB1) LABORATORY NARRATIVE RESULTS Information is not available RADIOLOGY RESULTS Information is not available PATHOLOGY NARRATIVE RESULTS Information is not available MICROBIOLOGY RESULTS No Micro Labs/Results Exist for Patient BLOOD ADMIN RESULTS Information is not available MEDICATIONS HOME MEDICATIONS Status RXNORM NDC Medication Dose Route Frequency Dates Comments Reported By Updated By Drug Treatment Unknown DISCHARGE MEDICATIONS Status RXNORM NDC Medication Dose Route Frequency Dates Dis pense Data Comments Physician Updated By No Discharge Medication Info rmation Available INPATIENT MEDICATIONS Status RXNORM NDC Medication Dose Route Frequency Rat e Quantity Dates Indication Dispense Data Comments Physician Updated [facility] [id number] [phone] cloNIDine (CATAPRES) 0.1 MG TABS 0.1 MG ORAL ONE TIME ONLY Start: 2024 1:30:0 0 AM [place] End: 2024 1:30:0 0 AM [place] AARON ONEIL MD INTERFAC ED on 2024 1:30:00 AM [facility] SOCIAL HISTORY SOCIAL HISTORY - Smoking Status SNOMED-CT Social History Element Description Effective Dates Offered Cessation Comment Updated By [id number] Historical Tobacco smoking status Former Smoker [email or web address] on January 21, 2025 8:44:11 PM [facility] [id number] Historical Tobacco smoking status Current Every Day Smoker [email or web address] on September 19, 2024 10:26:01 PM [facility] [id number] Historical Tobacco smoking status Never Smoked [email or web address] on November 21, 2017 9:04:18 PM [facility] SOCIAL HISTORY - Gender Sex: Male SOCIAL HISTORY - Status : status i nformation is not available Intention in Next Year: intention information is not available SOCIAL HISTORY - Assessments Code System Description Status Date Value of Assessment Updated By Comment Assessment Information is no t available SOCIAL HISTORY - [place] Affiliation [place] information is not av ailable SOCIAL HISTORY - Legal Sex Legal Sex information is not available SOCIAL HISTORY - Sexual Behavior Sexual Orientation Gender Identity SNOMED-CT Description SNO MED -CT Description Activity Level No of Partners Partner Type UpdatedBy Information is not available SOCIAL HISTORY - Occupation Occupation information is no t available HEALTH CONCERNS Problems Concern Status Health Concern problem infor mation not available. Smoking Status Status Years Used Consumed packs p er day Health Concern smoking histo ry information not available. Family History Concern Status Health Concern family histor y information not available. ENCOUNTERS ENCOUNTER INFORMATION Reason for Visit HIGH BLOOD PRESSURE Admission July 01, 2025 1:14:00 AM [place] C [address] [id number] Discharge July 01, 2025 2:38:00 AM [place] C DISCHARGED TO HOME OR SELF CARE ENCOUNTER DIAGNOSES Notes information is not yaya ilable. Code System Diagnosis Onset Date Diagnosis information is not available. ABSTRACT DIAGNOSES Code System Diagnosis Updated By Abatement Date R03.0 ICD10 ELEVATED BLOOD-P RESSURE READING, WITHOUT DIAGNOSIS OF HYPERTENSION [id number] on July 02, 2025 10:15:11 AM UTC I10 ICD10 ESSENTIAL (PRIMA RY) HYPERTENSION [id number] on July 02, 2025 10:15:11 AM UTC I10 ICD10 ESSENTIAL (PRIMA RY) HYPERTENSION [id number] on July 02, 2025 10:15:11 AM UTC I16.9 ICD10 HYPERTENSIVE CRI SIS, UNSPECIFIED [id number] on July 02, 2025 10:15:11 AM UTC Z72.0 ICD10 TOBACCO USE [id number] on Jun 10:15:11 AM UTC CARE TEAM Care Timber Incisor Operator Role BRENNA DANG Primary Care THAD WALKER Referring ARCELIA WALKER Primary Attending ARCELIA WALKER Admitting CARE TEAM CARE food demonstrator Role on Team Location Telecom Status Start Date End Jordi e Updated By AARON ONEIL MD, MD Referring normal July 01, 2025 1:24:14 AM [place] July 01, 2025 2:38:00 AM UTC [id number] on July 01, 2025 1:24:14 AM [facility] AARON ONEIL MD, MD Attending normal July 01, 2025 1:24:14 AM [place] July 01, 2025 2:38:00 AM UTC [id number] on July 01, 2025 1:24:14 AM [facility] AARON ONEIL MD, MD Admitting normal July 01, 2025 1:24:14 AM UTC July 01, 2025 2:38:00 AM UTC [id number] on July 01, 2025 1:24:14 AM [place] LAURENCE IRBY APRN PCP normal July 01, 2025 1:14:36 AM UTC July 01, 2025 2:38:00 AM UTC [id number] on July 01, 2025 1:24:14 AM UTC
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
--- OUTSIDE RECORDS SUMMARY | 2025-07-29 04:00 | XMS_ITS | Encounter Summary ---
Author Organization [facility] Address [address] [place] [id number] Care Team Providers Care Machining And Assembly Supervisor Name Role Phone Karime Stevens Primary Care Provider [phone] Reason for Referral * Diagnostic Imaging (Routine) - Closed Specialty Diagnoses / Procedures Referred By Nicolette fitzgerald Referred To Contact Diagnoses Coronary artery disease of [place] artery of [place] heart with stable angina pectoris Procedures Adult Transthoracic Echo Complete W/ Cont if Necessary Per Protocol Britt Manjarrez MD [address] [place] [address] [place] [address] Phone: tel: fax: [facility] [address] [place] [address] Phone: tel: fax: Referral ID Status Reason Start Date Expiration Date Visits Re quested Visits Authorized [id number] Closed 07/29/2025 10/28/2026 1 1 Reason for Visit * Cardiac Stress Testing (Routine) - Canceled Specialty Diagnoses / Procedures Referred By Contchanelle fitzgerald Referred To Contact Diagnoses Coronary artery disease of [place] artery of [place] heart with stable angina pectoris Chest pain, atypical Procedures Stress Test With Myocardial Perfusion One Day Alpa Miller, MIR [address] [place] [address] Phone: tel: fax: [address] [place] [address] Phone: tel: Referral ID Status Reason Start Date Expiration Date V isits Requested Visits Authorized Canceled 06/04/2025 09/03/2026 4 4 Encounter Details Date Type Department Care Team (Latest Contact Info) Description 07/29/2025 5:00 AM EDT Outside Facility Service [facility] [address] [place] [address] Britt Manjarrez MD [address] [place] [address] Coronary artery disease of [place] artery of [place] heart with stable angina pectoris; Chest pain, atypical Social History Tobacco Use Types Packs/Day Years Used Date Smoking Tobacco: Former Cigarettes 1 15 1 978 - 1992 Passive Smoke Exposure: Past Smokeless Tobacco: Never Alcohol Use Standard Drinks/Week Comments Not Currently [...] on file documented as of this encounter Plan of Treatment Upcoming Encounters Date Type Department Care Team (Late st Contact Info) Description 09/15/2025 1:30 PM EST Office Visit [facility] [address] [place] [address] Bhargavi Crouch APRN [address] [place] [address] documented as of this encounter Procedures Procedure Name Priority Date/Time Associated Diagnosis Comments OUTSIDE NON-INVASIVE CARDIOLOGY STUDY Routine 07/29/2025 Coronary artery disease of [place] artery of [place] heart with stable angina pectoris Chest pain, atypical documented in this encounter Results * ECHO COMPLETE W/ DOPPLER AND COLOR FLOW (08/05/2025 2:05 PM EDT) EF(MOD-bp) 51.3 % LVIDd 4.6 cm LVIDs 3.3 cm IVSd 1.17 cm LVPWd 1.13 cm FS 28.1 % IVS/LVPW 1.04 cm ESV(cubed) 35.3 ml LV Sys Vol (BSA corrected) 48.6 cm2 EDV(cubed) 94.8 ml LV Rowe Vol (BSA corrected) 94.2 cm2 LV mass(C)d 190.3 grams LVOT area 3.8 cm2 LVOT diam 2.20 cm EDV(MOD-sp2) 119.0 ml EDV(MOD-sp4) 154.0 ml ESV(MOD-sp2) 56.7 ml ESV(MOD-sp4) 79.4 ml SV(MOD-sp2) 62.3 ml SV(MOD-sp4) 74.6 ml SVi(MOD-SP2) 38.1 ml/m2 SVi(MOD-SP4) 45.7 ml/m2 SVi (LVOT) 35.6 ml/m2 EF(MOD-sp2) 52.4 % EF(MOD-sp4) 48.4 % MV E max az 41.4 cm/sec MV A max az 100.0 cm/sec MV dec time 0.26 sec MV E/A 0.41 Med Peak E' Az 4.7 cm/sec Lat Peak E' Az 4.5 cm/sec TR max az 260.0 cm/sec Avg E/e' ratio 9.00 SV(LVOT) 58.2 ml RVIDd 2.49 cm RV Base 2.09 cm RV Mid 2.38 cm RV Length 7.1 cm TAPSE (>1.6) 1.95 cm RV S' 14.4 cm/sec LA dimension (2D) 3.4 cm LV V1 max 79.1 cm/sec LV V1 max PG 2.5 mmHg LV V1 mean PG 1.00 mmHg LV V1 VTI 15.3 cm Ao pk az 109.0 cm/sec Ao max PG 4.8 mmHg Ao mean PG 3.0 mmHg Ao V2 VTI 20.9 cm ISAIAH(I,D) 2.8 cm2 Dimensionless Index 0.73 (DI) MV max PG 3.3 mmHg MV mean PG 1.00 mmHg MV V2 VTI 18.2 cm MV P1/2t 73.4 msec MVA(P1/2t) 3.0 cm2 MVA(VTI) 3.2 cm2 MV dec slope 162.5 cm/sec2 TR max PG 27.0 mmHg RVSP(TR) 30.0 mmHg RAP systole 3.0 mmHg PA V2 max 85.0 cm/sec Ao root diam 3.9 cm Sinus 4.0 cm Ascending aorta 3.4 cm LA ESV Index (BP) 36.0 ml/m2 Anatomical Region Laterality Modality Ultrasound Narrative 08/10/2025 12:58 PM EDT Left ventricular systolic function is normal. Calculated left ventricular EF = 51.3% Left ventricular ejection fraction appears to be 51 - 55%. Left ventricular diastolic function is consistent with (grade I) impaired relaxation. Left atrial volume is mildly increased. Moderate mitral valve regurgitation is present with multiple jets noted. Estimated right ventricular systolic pressure from tricuspid regurgitation is normal (<35 mmHg). Mild dilation of the aortic root is present. Mild dilation of the sinuses of Valsalva is present. Left Ventricle Left ventricular systolic function is normal. Calculated left ventricular EF = 51.3% Left ventricular ejection fraction appears to be 51 - 55%. Normal left ventricular cavity size noted. Left ventricular wall thickness is consistent with borderline concentric hypertrophy. All left ventricular wall segments contract normally. Left ventricular diastolic function is consistent with (grade I) impaired relaxation. Right Ventricle Normal right ventricular cavity size, wall thickness, systolic function and septal motion noted. Left Atrium Left atrial volume is mildly increased. Right Atrium Normal right atrial cavity size noted. Right atrial volume is 12 ml. Mitral Valve Mild mitral annular calcification is present. There is mild calcification of the mitral valve anterior and posterior leaflet(s). Moderate mitral valve regurgitation is present with multiple jets noted. No significant mitral valve stenosis is present. Tricuspid Valve The tricuspid valve is structurally normal with no significant regurgitation or significant stenosis present. Estimated right ventricular systolic pressure from tricuspid regurgitation is normal (<35 mmHg). Aortic Valve The aortic valve is abnormal in structure. There is mild calcification of the aortic valve. There is mild thickening of the aortic valve. The aortic valve appears trileaflet. No significant aortic valve regurgitation is present. No hemodynamically significant aortic valve stenosis is present. Pulmonic Valve The pulmonic valve is grossly normal in structure. There is no significant pulmonic valve regurgitation present. There is no pulmonic valve stenosis present. Pericardium The pericardium is normal. There is no evidence of pericardial effusion. . Greater Vessels Mild dilation of the aortic root is present. Mild dilation of the sinuses of Valsalva is present. No dilation of the ascending aorta is present. The aortic arch not well visualized. The descending aorta not well visualized. Normal IVC inspiratory collapse of greater than 50% noted. The main pulmonary artery is grossly normal. Study Quality The study is technically difficult for diagnosis. The quality of the study is limited with poor acoustic windows. Normal sinus was the predominant rhythm observed during the procedure. Wall Scoring Score Index: 1.18 The following segments are hypokinetic: basal inferior, basal inferolateral and basal anterolateral. All other segments are normal. us Britt Manjarrez MD CV ECHO ORDERABLES Final Res ult * External Stress Procedure (07/29/2025) Anatomical Region Laterality Modality Other Alpa Miller APRN CV CARDIAC SERVICES ORDERABL ES Final Result documented in this encounter Visit Diagnoses Diagnosis Coronary artery disease of [place] artery of [place] heart with stable angina pectoris Chest pain, atypical Coronary artery disease of [place] artery of [place] heart with stable angina pectoris documented in this encounter Care Teams Machining And Assembly Supervisor Relationship Specialty Start Date End Date Karime [place] [address] [place] [address] PCP - General Nurse Practitioner 07/06/23 documented as of this encounter
--- OUTSIDE RECORDS SUMMARY | 2025-08-01 02:35 | XMS_ITS | Continuity of Care Document ---
Author Organization [facility] Phone Care Team Providers Care Inside Sales Trainer Name Role Phone AME NI Admitting AME NI Primary Attending BRENNA DANG Primary Care AME NI Unavailable ALLERGIES AND ADVERSE REACTIONS ALLERGIES AND ADVERSE REACTIONS Code System Allergy Substance Adverse Reaction Date Reaction (Severity) Comment Status Reported By Updated By No Known Allergies [email or web address] on January 21, 2025 8:43:30 PM UT FAMILY HISTORY RELATION: Father Status: LIVING SNOMED-CT Diagnosis Age At Onset [id number] Alzheimer's disease RELATION: Father Status: Cause of : O/E - senile - old age Age at : 90's SNOMED-CT Diagnosis Age At Onset Information not available RELATION: Mother Status: Cause of : Unknown Age at : 70's SNOMED-CT Diagnosis Age At Onset [id number] Heart disease RELATION: Mother Status: Cause of : Unknown Age at : Unknown SNOMED-CT Diagnosis Age At Onset Information not available RESULTS Patient: NAYA BERNICE Bruce JR Date of : 1945 LABORATORY RESULTS Information is not available LABORATORY NARRATIVE RESULTS Information is not available RADIOLOGY RESULTS ORDER 100: NM MYOCARD SPEC W M/EF BEAM WARPER (LOINC: 10417-6) ORDER DATE: July 29, 2025 1:48:00 PM UT PERFORMING LAB: [address] [id number] Final Result Date: July 152024 11:11:43 PM UTC (TECH: [id number]) Nuclear stress test [facility] 2 EXAM: NM MYOCARD SPEC WM/EF BEAM WARPER [id number] DATE OF EXAM: 07/29/2025 09:48:00 PROVIDER: Britt Manjarrez MD TECHNIQUE: The patient was studied with a 1-day protocol. Lexiscan was used for vasodilatation due to lack of coordination and inability to walk treadmill. Rest SPECT dose was 9.45 mCi of sestamibi. Stress SPECT dose was 33.14 mCi of sestamibi. Gated SPECT imaging was also performed. FINDINGS: Baseline EKG showed normal sinus rhythm. Heart rate varied from 70 to 100 beats per minute. Blood pressure varied from 157/104 to 193/98. No arrhythmias developed. No reversal agent was needed. Raw imaging showed no unusual uptake. Nuclear ejection fraction calculated at 39% at rest and 32% at stress. There is global hypokinesis. Perfusion imaging showed a large basilar lateral reversible defect consistent with ischemia. Transient ischemic dilatation ratio was 0.88. CONCLUSIONS: Mild to moderately reduced left ventricular systolic function. Would correlate this with echocardiogram as there is some motion artifact on the study. Large basal lateral area of reversible ischemia. Intermediate to high risk study. Would consider invasive angiography if having clinical symptoms. DICTATED BY: Britt Manjarrez MD CW/MODL /[id number] Electronically Signed By: SEBASTIÁN TAPIA MD 2025-07-30 11:17:23 PATHOLOGY NARRATIVE RESULTS Information is not available [...] Dispense Data Comments Physician Updated By Dionicio [facility] [id number] REGADENOSON 0.4 MG/5ML SOLN 0.4 MG INTRAV ENOUS ONE TIME ADMINISTRA TION (UNSCHEDUL ED) Start: 2024 1:54:0 0 PM UT End: Octobe r 2024 3:15:3 1 PM UT RAINE Lawrence PRODUCTION MACHINE OPERATOR [id number] on July 29, 2025 3:15:00 PM UT SOCIAL HISTORY SOCIAL HISTORY - Smoking Status SNOMED-CT Social History Element Description Effective Dates Offered Cessation Comment Updated By [id number] Historical Tobacco smoking status Former Smoker [email or web address] on January 21, 2025 8:44:11 PM UT [id number] Historical Tobacco smoking status Current Every Day Smoker [email or web address] on September 19, 2024 10:26:01 PM UT [id number] Historical Tobacco smoking status Never Smoked [id number] on November 21, 2017 9:04:18 PM UT SOCIAL HISTORY - Gender Sex: Male SOCIAL HISTORY - Status : status i nformation is not available Intention in Next Year: intention information is not available SOCIAL HISTORY - Assessments Code System Description Status Date Value of Assessment Updated By Comment Assessment Information is no t available SOCIAL HISTORY - Elem Affiliation Elem information is not av ailable SOCIAL HISTORY - Legal Sex Legal Sex information is not available SOCIAL HISTORY - Sexual Behavior Sexual Orientation Gender Identity SNOMED-CT Description SNO MED -CT Description Activity Level No of Partners Partner Type UpdatedBy Information is not available SOCIAL HISTORY - Occupation Occupation information is no t available VITAL SIGNS PATIENT VITAL SIGNS This section displays the mo st recent value for each vital sign as of August 01, 2025 7:35:02 AM UT Loinc Code Vital Sign Activity Date Result Updated By 8302-2 Body height July 29, 2025 2:41:44 PM UT 162.56 cm (64.0 in) [id number] on July 29, 2025 2:41:[place] [address]-1 Body mass index (BMI ) [Ratio] July 29, 2025 2:41:44 PM UTC 22.819 kg/m2 3140-1 Body Surface Area Derived From Formula July 29, 2025 2:41:44 PM UT 1.6443 m2 54164-6 Body weight Measured July 29, 2025 2:41:44 PM UTC 60.3 kg (133.0 lb) [id number] on July 29, 2025 2:41:44 PM UT 8462-4 Diastolic blood pressure July 29, 2025 1:20:00 PM UT 104.0 mm[Hg] 8867-4 Heart rate July 29, 2025 1:20:00 PM [facility] 82 /min 41023-4 Oxygen saturation in Arterial blood by Pulse oximetry July 29, 2025 1:20:00 PM [facility] 98.0 % 8480-6 Systolic blood pressure July 29, 2025 1:20:00 PM [facility] 157.0 mm[Hg] PEDIATRIC GROWTH CHART - VITAL SIGNS This section displays Head C ircumference Percentile, Weight for Length Percentile and BMI Percentile Loinc Code Pediatric Measure Age (Months) Result Updat ed By No Pediatric Growth Chart Pe rcentile Information Available. HEALTH CONCERNS Problems Concern Status Health Concern problem infor mation not available. Smoking Status Status Years Used Consumed packs p er day Health Concern smoking histo ry information not available. Family History Concern Status Health Concern family histor y information not available. ENCOUNTERS ENCOUNTER INFORMATION Reason for Visit R07.89 Admission July 29, 2025 1:04:[address] [address] Discharge July 29, 2025 6:04:00 PM [facility] DISCHARGED TO HOME OR SELF CARE ENCOUNTER DIAGNOSES Notes information is not yaya ilable. Code System Diagnosis Onset Date Diagnosis information is not available. ABSTRACT DIAGNOSES Code System Diagnosis Updated By Abatement Date I25.118 ICD10 ATHEROSCLEROTIC HEART DISEASE OF [place] CORONARY ARTERY WITH OTHER FORMS OF ANGINA PECTORIS [id number] on August 01, 2025 7:34:44 AM [facility] R07.89 ICD10 OTHER CHEST PAIN [id number] on August 01, 2025 7:34:44 AM [facility] I25.118 ICD10 ATHEROSCLEROTIC HEART DISEASE OF [place] CORONARY ARTERY WITH OTHER FORMS OF ANGINA PECTORIS [id number] on August 01, 2025 7:34:44 AM [facility] R07.89 ICD10 OTHER CHEST PAIN [id number] on August 01, 2025 7:34:44 AM [facility] CARE TEAM Care Inside Sales Trainer Role AME NI Admitting AME NI Primary Attending BRENNA DANG Primary Care AME NI Referring CARE TEAM CARE locomotive mechanic Role on Team Location Telecom Status Start Date End Jordi e Updated By LAURENCE IRBY APRN PCP normal July 10, 2025 1:27:10 PM [facility] July 29, 2025 6:04:00 PM [facility] [id number] on July 10, 2025 1:27:10 PM [facility] RAINE Lawrence APRN Referring normal July 10, 2025 1:27:10 PM UTC July 29, 2025 6:04:00 PM UTC [id number] on July 10, 2025 1:27:10 PM UTC RAINE Lawrence APRN Attending normal July 10, 2025 1:27:10 PM UTC July 29, 2025 6:04:00 PM UTC [id number] on July 10, 2025 1:27:10 PM UTC RAINE Lawrence APRN Admitting normal July 10, 2025 1:27:10 PM UTC July 29, 2025 6:04:00 PM UTC [id number] on July 10, 2025 1:27:10 PM UTC
--- OUTSIDE RECORDS SUMMARY | 2025-08-05 12:30 | XMS_ITS | Encounter Summary ---
Author Organization [facility] Address [address] [place] [id number] Care Team Providers Care Director Online Marketing Name Role Phone Karime Stevens Primary Care Provider [phone] Reason for Visit * Diagnostic Imaging (Routine) - Closed Specialty Diagnoses / Procedures Referred By Contac t Referred To Contact Diagnoses Coronary artery disease of [place] artery of [place] heart with stable angina pectoris Procedures Adult Transthoracic Echo Complete W/ Cont if Necessary Per Protocol Britt Manjarrez MD [address] [place] [address] Phone: tel: fax: [facility] [place] [address] [place] [address] Phone: tel: fax: Referral ID Status Reason Start Date Expiration Date Visits Re quested Visits Authorized [id number] Closed 07/29/2025 10/28/2026 1 1 Encounter Details Date Type Department Care Team (Latest Contact Info) Description 08/05/2025 1:30 PM EDT Ancillary Procedure [facility] [place] [address] Coronary artery disease of [place] artery of [place] heart with stable angina pectoris Social History Tobacco Use Types Packs/Day Years Used Date Smoking Tobacco: Former Cigarettes 1 15 978 - 1992 Passive Smoke Exposure: Past [...] Sign Reading Time Taken Comments Blood Pressure 148/80 08/05/2025 1:16 PM EDT Pulse - - Temperature - - Respiratory Rate - - Oxygen Saturation - - Inhaled Oxygen Concentration - - Weight 59.4 kg (131 lb) 08/05/2025 1:16 PM EDT Height 162.6 cm (5' 4 ) 08/05/2025 1:16 PM EDT Body Mass Index 22.49 08/05/2025 1:16 PM EDT documented in this encounter Plan of Treatment Upcoming Encounters Date Type Department Care Team (Late st Contact Info) Description 09/15/2025 1:30 PM EST Office Visit [facility] [address] [place] [address] Bhargavi Crouch APRN [address] [place] [address] documented as of this encounter Procedures Procedure Name Priority Date/Time Associated Diagnosis Comments ECHO COMPLETE W/ DOPPLER AND COLOR FLOW Routine 08/05/2025 2:05 PM EDT Coronary artery disease of [place] artery of [place] heart with stable angina pectoris documented in this encounter Results * ECHO [...] MD CV ECHO ORDERABLES Final Res ult documented in this encounter Visit Diagnoses Diagnosis Coronary artery disease of [place] artery of [place] heart with stable angina pectoris documented in this encounter Care Teams Director Online Marketing Relationship Specialty Start Date End Date Karime [place] [address] PCP - General Nurse Practitioner 07/06/23 documented as of this encounter
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
[2025-08-16] VITALS (8 sets, daily range): BP systolic 113–140; BP diastolic 71–103; PULSE 60–102; RESP 14–26; TEMP 36.6–36.8; O2SAT 95–100; BMI 25.8
--- NOTE | 2025-08-16 15:43 | ECG_ITS ---
APPROVED REPORT Exam: Resting ECG HR:66 bpm ECG Measurements Heart Rate 66 AXES OK 172 P 64 QRSd 101 QRS -34 QT 418 T 77 QTc 431 Conclusion SINUS RHYTHM LEFT AXIS DEVIATION [QRS AXIS < -30] ABNORMAL ECG UNCONFIRMED REPORT Normal sinus rhythm. No ST elevation or depression. QTc normal at 431 Electronically signed by : PATRIZIA COE, 08/16/2025 21:17:21
--- NOTE | 2025-08-16 15:46 | XR_ITS ---
PROCEDURE INFORMATION: Exam: XR Chest Exam date and time: 08/16/2025 3:43 PM Age: 80 years old Clinical indication: Pain; Cough; Chest pressure; Additional info: Cough, chest pain TECHNIQUE: Imaging protocol: Radiologic exam of the chest. Views: 2 views. COMPARISON: CT CERVICAL SPINE WO CON 10/04/2023 9:42 AM FINDINGS: Tubes, catheters and devices: EKG leads project over the chest and may obscure pathology. Lungs: Unremarkable. No consolidation. Pleural spaces: Unremarkable. No gross pleural effusion. No pneumothorax. Heart/Mediastinum: Unremarkable. No cardiomegaly. Bones/joints: There are costochondral calcifications. IMPRESSION: No acute cardiopulmonary process.
--- NOTE | 2025-08-16 15:49 | [facility].EDCP ---
Discharge Plan Disposition Patient Disposition: Home, Self-Care Prescriptions Prescriptions: No Action mupirocin 2 % ointment TOPICAL lisinopril 20 mg tablet 20 mg PO cephalexin 500 mg capsule 500 mg PO ticagrelor 90 mg tablet 90 mg PO sertraline 25 mg tablet 25 mg PO ropinirole 2 mg tablet 2 mg PO omeprazole 40 mg capsule,delayed release(DR/EC) 40 mg PO atorvastatin 40 mg tablet 40 mg PO doxycycline hyclate 100 mg capsule 100 mg PO BID 14 Days Qty: 28 0RF levofloxacin 750 mg tablet 750 mg PO DAILY 14 Days Qty: 14 0RF Santyl 250 unit/gram ointment 1 applic topical DAILY Qty: 30 4RF Rx Instructions: Apply to wounds as directed once daily for 30 days. right 1st 3.0 x 3.0 cm, 2nd 2.0 x 2.0 cm, left 1st 2.0 x 2.5 cm, 2nd 2.0 x 1.5 cm, 4th 1.0 x 1.0 cm Referrals Follow up/Referrals: Provider,Referral, MD [Referring, Medical] - See instructions Activity Restrictions/Add. 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 If you develop any new or worsening symptoms, or if you become concerned for your help for any reason, return to the emergency department for evaluation. Clinical Impressions Clinical Impression: Chest pain Print Language Print Language: Czech Discharge ED Provider: Cristian Fay General Chief Complaint: Chest Pain Stated Complaint: Chest Pain Time Seen by Provider: 08/16/25 15:35 Mode of Arrival: EMS Source of Information: Patient Description of Symptoms (Recalled from ER Triage Doc. by RN): Reports that when he got up this morning he had left sided chest pain. Patient is very loud and talking inappropriately. History of Present Illness HPI narrative: Shai Garsia is a 80M with a history of hypertension, coronary artery disease, MD with stents and believes that he is on a blood thinner but does not know what he takes who presents to the emergency department via EMS for chest pain. Patient states that approximately noon today, he woke up from sleep and then tried to sit up and developed a pain in the left side of his chest. He does report some shortness of breath. He also reports a recent cough. He received aspirin and 1 nitroglycerin and route. He states that his pain has since resolved. Patient denies any tobacco use. He denies any leg swelling, abdominal pain, fevers. Related Data Home Medications ?Medication ?Instructions ?Recorded ?Confirmed atorvastatin 40 mg tablet 40 mg PO 03/07/21 10/30/22 cephalexin 500 mg capsule 500 mg PO 03/07/21 10/30/22 lisinopril 20 mg tablet 20 mg PO 03/07/21 10/30/22 mupirocin 2 % topical ointment topical 03/07/21 10/30/22 omeprazole 40 mg capsule,delayed 40 mg PO 03/07/21 10/30/22 release ropinirole 2 mg tablet 2 mg PO 03/07/21 10/30/22 sertraline 25 mg tablet 25 mg PO 03/07/21 10/30/22 ticagrelor 90 mg tablet 90 mg PO 03/07/21 10/30/22 Previous Rx's ?Medication ?Instructions ?Recorded doxycycline hyclate 100 mg capsule 100 mg PO BID 14 days #28 caps 10/30/22 levofloxacin 750 mg tablet 750 mg PO DAILY 14 days #14 tabs 10/30/22 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 Social History (Reviewed 10/30/22 @ 10:07 by Alesia Patterson [facility]) Smoking Status: Current every day smoker tobacco type: smokeless tobacco alcohol intake: current alcohol intake frequency: a few times a month current occupational status: retired Travel in the last 8 weeks?: None Have you lived/traveled outside US in past 30 days?: No Contact w/someone who lives/traveled outside US past 30 days?: No Exposure to someone with infectious disease in past 14 days?: No Do you have a fever (greater than 100.4 F or 38 C)?: No Have you tested positive for COVID-19?: No Exposed to someone with COVID-19 in past 14 days?: No Do you have a sore throat?: No Do you have a cough?: No Do you have any weakness?: No Do you have any diarrhea?: No Are you experiencing any unusual bleeding?: No Do you have any muscle aches/pain?: No Do you have any abdominal pain?: No Are you experiencing loss of taste or smell?: No Other Medical History Have you received the Pneumonia Vaccine: Yes ROS Obtained: Yes Systems reviewed as appropriate & no additional complaints except as documented Physical Exam General General appearance: alert and in no apparent distress Head Head exam: atraumatic Eye Eye exam: Present normal appearance ENT ENT exam: Present normal external ear exam Neck Neck exam: Present full ROM Chest Chest inspection: Present symmetric chest wall rise Respiratory Respiratory exam: Present normal lung sounds bilaterally; Absent respiratory distress, wheezes or stridor Cardiovascular Cardiovascular exam: Present regular rate and normal rhythm Abdominal Exam Abdominal exam: Present soft; Absent tenderness, guarding, rebound or rigidity exam: Present deferred Extremities Exam Extremities exam: Present normal inspection; Absent edema Back Exam Back exam: Present normal inspection Neurological Exam Neurological exam: Present alert and oriented X3 Psychiatric Psychiatric exam: Present normal affect Skin Skin exam: Present warm and dry HEART Score HEART Score HEART Score assessment performed?: Yes History (anamnesis): Slightly suspicious ECG: Normal Age: >65 years Risk factors: Atherosclerosis history Troponin: </= normal limit HEART Score: 4 Critical Care Critical Care Time Critical Care Time: No Medical Decision Making Anthony Inquiry Pt receiving controlled substance: No Vital Signs Vital Signs: 08/16/25 15:37 08/16/25 15:39 08/16/25 15:45 Temperature 97.9 F Temperature Source Oral Pulse Rate 83 102 H Pulse Rate [Radial] 80 Respiratory Rate 18 15 Blood Pressure 113/71 Blood Pressure [Right Arm] 113/71 Blood Pressure Mean [Right Arm] 85 Blood Pressure Source [Right Arm] Automatic Cuff Blood Pressure Position [Right Arm] Sitting 02 Sat by Pulse Oximetry 99 100 95 Oxygen Delivery Method Room Air Room Air Room Air 08/16/25 16:15 08/16/25 17:00 08/16/25 17:30 Temperature Temperature Source Pulse Rate 79 66 69 Pulse Rate [Radial] Respiratory Rate 25 H 14 Blood Pressure Blood Pressure [Right Arm] Blood Pressure Mean [Right Arm] Blood Pressure Source [Right Arm] Blood Pressure Position [Right Arm] 02 Sat by Pulse Oximetry 98 Oxygen Delivery Method Room Air 08/16/25 18:00 Temperature Temperature Source Pulse Rate 60 Pulse Rate [Radial] Respiratory Rate 26 H Blood Pressure Blood Pressure [Right Arm] Blood Pressure Mean [Right Arm] Blood Pressure Source [Right Arm] Blood Pressure Position [Right Arm] 02 Sat by Pulse Oximetry Oxygen Delivery Method Lab Data Labs: Lab Results 08/16/25 14:55: WBC 9.5, RBC 4.97, Hgb 14.4, Hct 45.2, MCV 90.9, MCH 29.0, MCHC 31.9, RDW 15.7, Plt Count 228, MPV 12.9 H, Neut % (Auto) 36.1 L, Lymph % (Auto) 42.0, Ida % (Auto) 19.2 H, Eos % (Auto) 1.2, Baso % (Auto) 0.2, Neut # (Auto) 3.4, Lymph # (Auto) 4.0, Ida # (Auto) 1.8 H, Eos # (Auto) 0.1, Baso # (Auto) 0.0, Total Counted 100, Neutrophils % (Manual) 39 L, Lymphocytes % (Manual) 42, Monocytes % (Manual) 15 H, Eosinophils % (Manual) 4 H, Platelet Estimate Normal, RBC Morphology Normal, Sodium 143, Potassium 4.0, Chloride 106, Carbon Dioxide 24, Anion Gap 17.0 H, BUN 17, Creatinine 0.90, Estimated Creat Clear 64, Estimated GFR 82, Est GFR ( Amer) 99, Glucose 97, Calcium 9.3, Total Bilirubin 0.9, AST 33, ALT 37, Alkaline Phosphatase 180 H, Troponin I < 0.01, NT-Pro-B Natriuret Pep 486 H, Total Protein 9.0 H, Albumin 4.6, Globulin 4.4 H, Albumin/Globulin Ratio 1.0 L, HCV Ab JEANNIE w/Rflx PCR Qn Negative, HIV Ag/Ab Combo Qual Negative 08/16/25 15:57: Troponin I < 0.01 08/16/25 14:55 08/16/25 14:55 Response Orders (Tests/Meds): ORDERS Category Date Time Status CXR 2 view (NOT portable) [XR chest 2V] Stat Exams 08/16/25 15:46 Completed BNP [NT Pro Brain Natriuretic Pep.] Stat Lab 08/16/25 14:55 Completed CBC w/Auto Diff [Complete Blood Count Auto Diff] Stat Lab 08/16/25 14:55 Completed CMP [Comprehensive Metabolic Panel] Stat Lab 08/16/25 14:55 Completed HIV Combo Stat Lab 08/16/25 14:55 Completed Hepatitis C Ab Qual. W/ RFX Stat Lab 08/16/25 14:55 Completed Troponin I Q3H Lab 08/16/25 15:57 Completed Troponin I Q3H Lab 08/16/25 22:00 Ordered Troponin I Stat Lab 08/16/25 14:55 Completed ECG Data Tracing #1: Attestation: I reviewed this ECG and interpreted as documented below: ECG Narrative: Normal sinus rhythm. No ST elevation or depression. QTc of 431. No T wave inversions MDM Narrative Medical Decision Narrative: Shai Garsia is a 80M with a history of hypertension, coronary artery disease, MD with stents and believes that he is on a blood thinner but does not know what he takes who presents to the emergency department via EMS for chest pain. Patient states that approximately noon today, he woke up from sleep and then tried to sit up and developed a pain in the left side of his chest. He does report some shortness of breath. He also reports a recent cough. He received aspirin and 1 nitroglycerin and route. He states that his pain has since resolved. Patient denies any tobacco use. He denies any leg swelling, abdominal pain, fevers. On arrival, patient is normotensive, heart rate within normal limits, afebrile, oxygen saturation 100% on room air. Physical exam, stated above, revealed a overall well-appearing male in no distress. He is speaking in full sentences. Cardiopulmonary exam reveals no murmurs or rubs. No wheezing, rales or rhonchi. Abdomen is soft, nontender nondistended. He has no edema in his lower extremities. Differential diagnosis includes, but is not limited to: ACS, pericarditis, pneumonia, viral respiratory illness, muscle strain, costochondritis. I have low concern for pulmonary embolism as patient is PERC negative. EKG without evidence of ischemia. See interpretation above Patient's workup shows no leukocytosis, no anemia, electrolytes within normal limits. Mildly elevated anion gap of 17. Liver enzymes and bili are within normal limits. Troponin less than 0.01. Will get 3-hour repeat troponin. NT proBNP very mildly elevated at 486. Chest x-ray interpreted by me personally. No focal consolidation, no pneumothorax, no widened mediastinum, no enlargement of the cardiac silhouette. Unremarkable chest x-ray. See radiology report for details. Heart score is 4. The patient was placed in observation status at 1700. Medical necessity for observational status is serial troponins. The patient was provided serial reevaluations and cardiac monitoring while awaiting results. Results of testing during observation are remarkable for: Negative troponin x 2. Patient was in ED observation for a total of 2 hours and 15 minutes. On reassessment, patient remains in stable condition. He states that this event occurred while he was trying to pull himself out of bed with his arm but he feels well at this time. I have low concern for cardiac etiology at this time but did encourage him to follow-up with his finished hardware erector, Dr. Hernandez, closely and return to the emergency department he had any new or worsening symptoms. All questions were answered. He was eager to get home at this time. Will discharge the patient in stable condition.
--- OUTSIDE RECORDS SUMMARY | 2025-08-16 15:52 | XMS_ITS | Encounter Summary ---
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 Name Role Phone Unavailable Primary Care Provider Unavailabl e Encounter Details Date Type Department Care Team (Late st Contact Info) Description 12/04/2019 Transcribed Document [facility] [address] [place] [address] ProviderPhyllis MD [facility] [place] [address] Social History Tobacco Use Types Packs/Day Years Used Date Smoking Tobacco: Never Assessed Sex and Gender Information Value Date Recorded Sex Assigned at Not on file Legal Sex Male 3:35 PM CDT Gender Identity Not on file Sexual Orientation Not on file documented as of this encounter Miscellaneous Notes * Cerner Conversion Note - Historical ProviderMD - 12/04/2019 11:35 AM 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 Pt placed on monitor, call pressley within reach, family at BS. Elizabeth Dougherty, RN - 12/04/2019 12:49 EST Electronically signed by [facility] Conversion Stallion Keeper Cerner at 02/01/2023 8:26 AM CDT documented in this encounter Plan of Treatment Not on file documented as of this encounter Visit Diagnoses Not on filedocumented in this encounter
--- OUTSIDE RECORDS SUMMARY | 2025-08-16 15:52 | XMS_ITS | Continuity of Care Document ---
Author Organization [employer], [employer] [facility] [employer] [facility] Address [address] [place] [id number] Care Team Providers Care Shipping Support Clerk Name Role Phone KARIME STEVENS Primary Care Provider KYRA Marshall Community Health Worker [phone] Assessment No assessment recorded. 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 FEED ADVISER Not available Not available Not available FOLLOW UP 2025 02:00P M Thu Stevens APRN Not available Not available Not available Lab None record ed. Referral None record ed. Procedures None record ed. Surgeries None record ed. Imaging None record ed. Medication Orders aspiri n 81 mg chewab le tablet 2024 025 [facility], [address] [place] [address], [id number], 07/23/2025 14:13:54 Brilin ta 90 mg tablet 2024 025 [facility], [address] [place] [address], [id number], 06/30/2025 12:46:37 melato fariha 10 mg capsul e 2024 025 [facility], [address] [place] [address], [id number], 06/30/2025 12:31:27 trazod one 50 mg tablet 2024 025 [facility], [address] [place] [address], [id number], 06/30/2025 12:46:38 atorva statin 80 mg tablet 2024 025 [facility], [address] [place] [address], [id number], 06/30/2025 12:46:33 ropini role 2 mg tablet 2024 025 [facility], [address] [place] [address], [id number], 06/30/2025 12:46:35 omepra zole 40 mg capsul e,sara yed releas e 2024 025 [facility], [address] [place] [address], [id number], 06/30/2025 12:46:37 sertra line 25 mg tablet 2024 025 [facility], [address] [place] [address], [id number], 06/30/2025 12:46:36 lisino pril 10 mg tablet 2024 025 [facility], [address] [place] [address], [id number], 06/30/2025 12:46:34 Ventol in HFA 90 mcg/ac tuatio n aeroso l inhale r 2024 025 [facility], [address] [place] [address], [id number], 06/30/2025 12:46:38 Patient TargetsNo targets recorded. Patient InstructionsNo instructions recorded. Reason for Referral None Reported. Problems Name Problem SNOMED Code Status Onset Date Resolution Date Notes Provider Name and Address Organization Details Recorded Time Hypothyr oidism 54207571 Active 2016 Problem Code: E03.8; Problem Code Type: ICD-10; Not Available [facility] 2 20:55:13 Mixed hyperlip idemia 433652620 Completed 201605/23/2017 Problem Code: E78.2; Problem Code Type: ICD-10; Alesia brown, [employer] 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 2 12:55:25 Hyperten sive disorder 94777382 Completed 201608/24/2017 Problem Code: I10; Problem Code Type: ICD-10; Not Available [facility] 2 20:55:14 Gastroes ophageal reflux disease without esophagi tis 798153125 Completed 201602/19/2018 Geetha Hayward NP [address] [place] [address], [phone] , [employer] 4 11:19:01 Idiopath ic osteoart hritis 840462869 Completed 201602/15/2018 Problem Code: M15.0; Problem Code Type: ICD-10; Not Available [facility] 2 20:55:15 Restless legs syndrome 06350731 Active 2016 Problem Code: G25.81; Problem Code Type: ICD-10; Not Available [facility] 2 20:55:16 Acquired hypothyr oidism 436028744 Completed 201602/19/2018 Problem Code: 244.8; Problem Code Type: ICD-9; Not Available [facility] 2 20:55:21 Benign essentia l hyperten radha 4960059 Completed 201603/01/2021 Problem Code: 401.1; Problem Code Type: ICD-9; Not Available [facility] 2 20:55:23 Gastroes ophageal reflux disease 558367286 Completed 201602/19/2018 Problem Code: 530.81; Problem Code Type: ICD-9; Not Available [facility] 2 20:55:23 Osteoart hrosis involvin g multiple sites but not designat ed as generali zed 65901411 Completed 201608/24/2017 Problem Code: 715.89; Problem Code Type: ICD-9; Not Available [facility] 2 20:55:25 Dizzines s and giddines s 781015267 Completed 201607/06/2022 Problem Code: R42; Problem Code Type: ICD-10; KYRA brown [place] [employer] [facility]. 2 12:55:25 Benign essentia l hyperten radha 0029458 Completed 201603/01/2021 Problem Code: 401.1; Problem Code Type: ICD-9; Not Available [facility] 2 20:55:24 Restless legs syndrome 09798031 Completed 201608/01/2018 Problem Code: G25.81; Problem Code Type: ICD-10; Not Available [facility] 2 20:55:13 Hyperten sive disorder 71494473 Active 2016 Problem Code: I10; Problem Code Type: ICD-10; Not Available [facility] 2 20:55:14 Cellulit is of left upper limb 66767828613 378913 Completed 201603/18/2017 Problem Code: L03.114; Problem Code Type: ICD-10; Not Available [facility] 2 20:55:15 Benign essentia l hyperten radha 2731844 Active 2016 Problem Code: 401.1; Problem Code Type: ICD-9; Not Available [facility] 2 20:55:23 Cellulit is and abscess of hand excludin g digits Completed 201603/18/2017 Problem Code: 682.4; Problem Code Type: ICD-9; Not Available [facility] 2 20:55:26 Calculus in pelviure teric junction 359195400 Completed 201605/20/2020 Problem Code: N20.1; Problem Code Type: ICD-10; Not Available [facility] 2 20:55:16 Polyuria 08903402 Completed 201605/03/2017 Problem Code: R35.8; Problem Code Type: ICD-10; Not Available [facility] 2 20:55:17 Kidney stone 54347041 Completed 201603/01/2021 Problem Code: 592.0; Problem Code Type: ICD-9; Not Available [facility] 2 20:55:24 Pain of right shoulder joint 56675334171 332415 Completed 201607/20/2017 Problem Code: M25.511; Problem Code Type: ICD-10; Not Available [facility] 2 20:55:15 Pain of left shoulder joint 49870594516 674207 Completed 201607/20/2017 Problem Code: M25.512; Problem Code Type: ICD-10; Not Available [facility] 2 20:55:21 Shoulder joint pain 875237709 Completed 201607/20/2017 Problem Code: 719.41; Problem Code Type: ICD-9; Not Available [facility] 2 20:55:26 Acute bronchit is 68326501 Completed 201710/31/2017 Problem Code: J20.9; Problem Code Type: ICD-10; Not Available [facility] 2 20:55:15 Cough 46366913 Completed 201710/31/2017 Problem Code: 786.2; Problem Code Type: ICD-9; Not Available [facility] 2 20:55:27 Influenz a 8188671 Completed 201712/22/2017 Problem Code: J10.1; Problem Code Type: ICD-10; Not Available [facility] 2 20:55:15 Influenz a with respirat ory manifest ation other than pneumoni a Completed 201712/22/2017 Problem Code: 487.1; Problem Code Type: ICD-9; Not Available [facility] 2 20:55:25 Bullous impetigo of napkin area 299877174 Completed 201701/11/2018 Not Available [facility] 2 20:55:20 Impetigo 83498369 Completed 201701/11/2018 Problem Code: 684; Problem Code Type: ICD-9; Not Available [facility] 2 20:55:24 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 2 12:55:26 Acute peptic ulcer without hemorrha ge AND without perforat ion 84499328 Completed 201702/04/2018 Problem Code: K27.3; Problem Code Type: ICD-10; Not Available [facility] 2 20:55:20 Ulcer of foot 66045628 Completed 201703/01/2021 Problem Code: 707.15; Problem Code Type: ICD-9; Not Available [facility] 2 20:55:25 Acute peptic ulcer 704291808 Completed 201702/04/2018 Problem Code: 533.30; Problem Code Type: ICD-9; Not Available [facility] 2 20:55:25 Ulcer of heel 664806968 Completed 201707/06/2022 Problem Code: 707.14; Problem Code Type: ICD-9; KYRA brown [employer] 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 2 12:55:26 Removal of suture Completed 201703/01/2021 Problem Code: V58.32; Problem Code Type: ICD-9; Not Available [facility] 2 20:55:30 Large prostate 290618004 Active 2017 Problem Code: N40.0; Problem Code Type: ICD-10; Not Available [facility] 2 20:55:16 Benign prostati c hyperpla lacey 154298584 Completed 201703/01/2021 Problem Code: 600.00; Problem Code Type: ICD-9; Not Available [facility] 2 20:55:26 Panic disorder without agorapho quinn 30756305 Completed 201703/01/2021 Problem Code: 300.01; Problem Code Type: ICD-9; Not Available [facility] 2 20:55:22 Pain of left shoulder joint 11119344473 266411 Completed 201704/09/2018 Problem Code: M25.512; Problem Code Type: ICD-10; Not Available [facility] 2 20:55:15 Shoulder joint pain 950778798 Completed 201704/09/2018 Problem Code: 719.41; Problem Code Type: ICD-9; Not Available [facility] 2 20:55:30 Sprain of shoulder rotator cuff 55889213124 4 Completed 201706/25/2018 Problem Code: S43.422D ; Problem Code Type: ICD-10; Not Available [facility] 2 20:55:27 Mild major depressi on, single episode 47090315 Active 2017 Problem Code: F32.0; Problem Code Type: ICD-10; Not Available [facility] 2 20:55:13 Depressi ve disorder 92931654 Completed 201703/01/2021 Problem Code: 311; Problem Code Type: ICD-9; Not Available [facility] 2 20:55:22 Tension- type headache 763464373 Active 2018 Problem Code: G44.209; Problem Code Type: ICD-10; Not Available [facility] 2 20:55:14 Dizzines s and giddines s 282844069 Completed 201805/20/2020 Problem Code: R42; Problem Code Type: ICD-10; KYRA brown [employer] 2 12:55:25 Left carotid artery occlusio n 53498353221 9105 Active 2018 Not Available [facility] 2 20:55:14 Chronic fatigue syndrome 83668489 Active 2018 Problem Code: R53.82; Problem Code Type: ICD-10; Not Available [facility] 2 20:55:17 Body mass index 20-24 - normal 309822911 Completed 201802/15/2021 KYRA brown [employer] 2 12:55:26 Counseli pipo for harmful pattern of substanc e use Active 2018 Problem Code: Z71.6; Problem Code Type: ICD-10; Not Available [facility] 2 20:55:21 Influenz a vaccine needed 85393571242 06 Completed 201805/20/2020 Problem Code: Z23; Problem Code Type: ICD-10; KYRA brown, [employer] 2 12:55:25 Cellulit is of toe of left foot 37312853163 132661 Completed 201805/20/2020 Problem Code: L03.032; Problem Code Type: ICD-10; Not Available [facility] 2 20:55:15 Tension- type headache 406726404 Completed 201805/17/2021 Problem Code: G44.209; Problem Code Type: ICD-10; Not Available [facility] 2 20:55:13 Mixed hyperlip idemia 142161278 Active 2018 Problem Code: E78.2; Problem Code Type: ICD-10; Alesia brown, [employer] 5 10:14:46 Chest pain 77844094 Completed 201807/06/2022 Problem Code: R07.9; Problem Code Type: ICD-10; KYRA brown, [employer] 2 12:55:25 Body mass index 20-24 - normal 115262947 Completed 201802/15/2021 KYRA CRUZNER stephanie, [employer]. 2 12:55:26 Insomnia 541624516 Active 2019 Not Available [facility] 2 20:55:13 Atherosc lerosis of coronary artery without angina pectoris 87233995334 4103 Active 2019 Not Available [facility] 2 20:55:14 Nicotine dependen ce 31732946 Active 2020 Problem Code: F17.200; Problem Code Type: ICD-10; Not Available [facility] 2 20:55:13 Chronic ulcer of foot 655998016 Completed 202005/17/2021 Not Available [facility] 2 20:55:15 Body mass index 20-24 - normal 933735981 Completed 202002/15/2021 KYRA brown, [employer] 2 12:55:26 General examinat ion of patient Completed 202007/06/2022 KYRA CRUZNER stephanie, [employer] 2 12:55:25 Pain in left foot 50341574012 9107 Completed 202005/17/2021 Problem Code: M79.672; Problem Code Type: ICD-10; [facility] 2 20:55:16 Body mass index 20-24 - normal 455946934 Completed 202107/06/2022 KYRA JODY stephanie, [employer] 2 12:55:26 Influenz a vaccine needed 42780852923 06 Completed 202107/06/2022 Problem Code: Z23; Problem Code Type: ICD-10; KYRA CRUZNER stephanie, [employer] 2 12:55:25 Lower respirat ory tract infectio n 94535323 Active 2023 Geetha Hayward NP [address] [place] [address], [phone] , [employer] 4 11:18:57 Primary insomnia 8618497 Active 2023 Geetha Hayward NP [address] [place] [address], [phone] , [employer] 4 11:18:56 Hyperlip idemia 47169212 Active 2023 Geetha Hayward NP [address] [place] [address], [phone] , [employer] 4 11:18:59 Gastroes ophageal reflux disease without esophagi tis 116387214 Active 2023 Geetha Hayward NP [address] [place] [address], [phone] , [employer] 4 11:19:01 Abdomina l pain 84551567 Active 2024 Alesia brown, [employer] 5 13:04:32 Dyspnea 604453712 Active 2024 Alesia brown [employer] 5 13:04:34 Suicidal thoughts 1696598 Active 2024 Alesia brown [employer] 5 13:04:37 Problem Notes None recorded. Procedures Surgical History Date Name Laterality Status Provider Name and Address Organization Details Recorded Time Unlisted px femur/knee completed KYRA VERA [employer] 07/06/2022 12:59:53 Imaging Results None recorded. Procedure Notes None recorded. Medical Equipment None Reported. Allergies No known drug allergies Medications Name Sig Start Date Stop Date Status Note LastModified by Organization Details LastModified Time n b melatonin cap 10mg 60 Take 1 capsule by mouth 1 hour prior to bedtime 04/04 completed Not Available Not Available Not Available Santyl 250 unit/gram topical ointment 01/04 completed Not Available Not Available Not Available atorvasta tin 40 mg tablet TAKE ONE TABLET BY MOUTH EVERY DAY 09/20 completed increase d by cardio Not Available Not Available Not Available promethaz ine-DM 6.25 mg-15 mg/5 mL oral syrup Take 1 teaspoon ful by mouth every 6 hours as needed. 12/06 completed Not Available Not Available Not Available atorvasta tin 80 mg tablet TAKE 1 TABLET BY MOUTH EVERY DAY AT bedtime active Not Available Not Available No t Available doxycycli ne hyclate 100 mg capsule TAKE ONE CAPSULE BY MOUTH TWICE DAILY FOR 7 DAYS 10/03 completed Not Available Not Available Not Available trazodone 50 mg tablet TAKE 1 TABLET BY MOUTH EVERY DAY active Not Available Not Available No t Available sucralfat e 1 gram tablet Take 1 tablet(s ) by mouth qid 11/13 completed Not Available Not Available Not Available Requip 1 mg tablet 1 po q HS 11/15 completed Not Available Not Available Not Available atenolol 25 mg tablet two tablets in the a.m. and 1 in the p.m. 12/06 completed Not Available Not Available Not Available meclizine 12.5 mg tablet one tablet q hs 06/01 completed Not Available Not Available Not Available omeprazol e 40 mg capsule,d elayed release TAKE 1 CAPSULE BY MOUTH DAILY BEFORE a MEAL active Not Available Not Available No t Available doxycycli ne monohydra te 100 mg tablet Take 1 tablet(s ) by mouth bid 12/06 completed Not Available Not Available Not Available simvastat in 40 mg tablet Take 1 tablet(s ) by mouth at bedtime 02/15 completed Not Available Not Available Not Available levothyro xine 75 mcg tablet TAKE 1 TAB BY MOUTH EVERY MORNING ON AN EMPTY STOMACH 08/17 completed Not Available Not Available Not Available Synthroid 25 mcg tablet Take 1 tablet(s ) by mouth daily 11/13 completed Not Available Not Available Not Available meclizine 25 mg tablet 1 tablet bid prn 01/30 completed Not Available Not Available Not Available ropinirol e 2 mg tablet TAKE 1 TABLET BY MOUTH EVERY EVENING active Not Available Not Available No t Available cephalexi n 500 mg capsule take 1 capsule (500 mg) by oral route every 12 hours for 10 days 05/17 completed Not Available Not Available Not Available pantopraz ole 40 mg tablet,de layed release Take 1 tablet(s ) by mouth bid 12/15 completed Not Available Not Available Not Available simvastat in 20 mg tablet Take 1 tablet(s ) by mouth at bedtime 11/13 completed Not Available Not Available Not Available buspirone 10 mg tablet Take 1 tab by mouth every 8 hours prn anxiety 11/04 completed Not Available Not Available Not Available lisinopri l 10 mg tablet TAKE 1 TABLET BY MOUTH EVERY DAY active Not Available Not Available No t Available Synthroid 50 mcg tablet Take 1 tablet(s ) by mouth daily 02/26 completed Not Available Not Available Not Available gabapenti n 300 mg capsule 1 capsule at bedtime 01/17 completed Not Available Not Available Not Available sertralin e 25 mg tablet TAKE 1 TABLET BY MOUTH AT BEDTIME active Not Available Not Available No t Available aspirin 81 mg chewable tablet chew and swallow 1 tablet by mouth daily active Not Available Not Available No t Available mupirocin 2 % topical ointment apply a small amount to the affected area by topical route 3 times per day 08/17 completed Not Available Not Available Not Available Requip 0.25 mg tablet one tablet at bedtime for 7 days then take 2 pills at bedtime. 01/17 completed Not Available Not Available Not Available levofloxa lissett 750 mg tablet 01/04 completed Not Available Not Available Not Available albuterol sulfate HFA 90 mcg/actua tion aerosol inhaler 1-2 puffs every 4-6 hours as needed for cough or wheeze active Not Available Not Available No t Available Naprosyn 500 mg tablet Take 1 tablet(s ) by mouth bid 08/09 completed Not Available Not Available Not Available Bactrim DS 800 mg-160 mg tablet Take 1 tablet(s ) by mouth q12h for 10 days 01/17 completed Not Available Not Available Not Available ezetimibe 10 mg tablet active Not Available Not Available Not Available Crestor 40 mg tablet 1 po qhs 09/26 completed Not Available Not Available Not Available metoprolo l tartrate 25 mg tablet TAKE 1 TABLET BY MOUTH TWO TIMES A DAY 07/06 completed Not Available Not Available Not Available [facility] Levothyro xine Sodium Take 1 capsule( s) by mouth daily before breakfas t. 10/19 completed Not Available Not Available Not Available guaifenes in ER 1,200 mg tablet, extended release 12 hr TAKE ONE TABLET BY MOUTH TWICE DAILY FOR CONGESTI ON 12/29 completed Not Available Not Available Not Available melatonin 5 mg tablet TAKE TWO TABLETS BY MOUTH DAILY ONE hour BEFORE bedtime 07/04 completed Not Available Not Available Not Available Brilinta 90 mg tablet TAKE 1 TABLET BY MOUTH TWICE DAILY active Not Available Not Available No t Available melatonin 10 mg capsule Take 1 capsule PO 1 hour prior to bedtime 2024 active Not Available Not Available Not Avai lable Breztri Aerospher e 160 mcg-9mcg- 4.8mcg/ac tuation HFA aerosol inhaler Inhale 2 puffs twice a day by inhalati on route. 2024 active Not Available Not Available Not Avai lable Vitals Date Recorded Body height Body mass index (BMI) Body weight Heart rate Oxygen saturation Oxygen saturation in Arterial blood by Pulse oximetry Systolic And Diastolic Systolic And Diastolic Systolic And Diastolic Provider Name and Address Organization Details Last Updated DateTime 5 162.56 cm 22.9 kg/m2 50705.5 9 g 98 /min 93 % 93 % 184/106 mm[Hg] 200/98 mm[Hg] 148/96 mm[Hg] Alesia Bonilla [place] [employer] 5 12:02:05 Social History Question Answer Notes LastModified by Organizat ion Details LastModified Time Do You Have An Advance Directive? No [email or web address] Information not available 07/06/2022 Is Your Home Air Conditioned? Yes Information not available 07/16/2025 How Many Years Have You Consumed Alcohol? 0 Information not available 07/16/2025 Are You Blind Or Do You Have Difficulty Seeing? No Information not available 07/06/2022 What Is Your Level Of Caffeine Consumption? Occasional Information not available 04/09/2023 Are You A Caregiver? Yes [email or web address] Information not available 08/17/2022 In The 14 Days Before Symptom Onset, Have You Had Close Contact With A Laboratory-confir med COVID-19 While That Case Was Ill? No [email or web address] Information not available 08/17/2022 In The 14 Days Before Symptom Onset, Have You Had Close Contact With A Person Who Is Under Investigation For COVID-19 While That Person Was Ill? No [email or web address] Information not available 08/17/2022 Have You Been To An Area Known To Be High Risk For COVID-19? No [email or web address] Information not available 07/06/2022 Are You Deaf Or Do You Have Serious Difficulty Hearing? No [email or web address] Information not available 07/06/2022 What Type Of Diet Are You Following? REGULAR [email or web address] Information not available 08/17/2022 Have Your Transportation Difficulties Led To Difficulty In Accessing Medical Care? Yes Information not available 07/16/2025 What Is The Highest Grade Or Level Of School You Have Completed Or The Highest Degree You Have Received? [id number] Information not available 07/16/2025 Have There Been Any Changes To Your Family Or Social Situation? No [email or web address] Information not available 08/17/2022 When Did You Quit Smoking? 6-10yearssincelastc igarette Information not available 04/04/2024 Are There Any Guns Present In Your Home? No Information not available 07/16/2025 Which Of Your Hands Is Dominant? Right Information not available 07/16/2025 Do You Engage In Moderate/heavy Exercise (e.g. Brisk Walk, Jogging, Strength Training, Etc)? No Information not available 07/16/2025 How Many Times In The Past Year Have You Used An Illegal Drug Or Used A Prescription Medication For Nonmedical Reasons? 0 Information not available 07/16/2025 Where Do You Live? SingleLevelHouse Information not available 07/16/2025 Do You Have A Medical Power Of Malt Loader? No [email or web address] Information not available 07/06/2022 What Was The Date Of Your Most Recent Tobacco Screening? 07/16/2025 Information not available 07/16/2025 What Is Your Current Pack Years? 30ormorepackyears [email or web address] Information not available 07/06/2022 Have You Ever Been Counseled For Unhealthy Alcohol Use? No Information not available 07/16/2025 Do You Have Any Pets? No Information not available 07/16/2025 What Is Your Relationship Status? Single [email or web address] Information not available 07/06/2022 Do You Wear A Seatbelt When Driving Or As A Passenger? Yes Information not available 07/16/2025 Do You Use Your Seat Belt Or Car Seat Routinely? Yes Information not available 07/10/2023 Are You Sexually Active? No Information not available 08/27/2024 Do You Have Smoke And Carbon Monoxide Detectors In Your Home? Yes Information not available 07/16/2025 Are You Passively Exposed To Smoke? No Information not available 07/16/2025 Are There Any Smokers In Your House? No Information not available 07/16/2025 How Much Tobacco Do You Smoke? No Information not available 03/31/2025 Do You Participate In Social Media? No Information not available 07/10/2023 What Types Of Sporting Activities Do You Participate In? O Information not available 07/16/2025 Do You Use Sunscreen Routinely? No Information not available 07/06/2022 Has Tobacco Cessation Counseling Been Provided? Yes Information not available 04/09/2023 On What Date Was Tobacco Cessation Counseling Provided? 07/16/2025 Information not available 07/16/2025 Have You Recently Traveled Abroad? No [email or web address] Information not available 07/06/2022 Do You Have Difficulty Walking Or Climbing Stairs? No [email or web address] Information not available 07/06/2022 Are You Currently In School? No [email or web address] Information not available 07/06/2022 What Contraceptive Method Was Reported At Start Of This Visit? Decline To Answer Information not available 07/16/2025 Do You Feel Safe In Your Home? Yes Information not available 07/16/2025 Do You Have Any Dietary Restrictions? No [email or web address] Information not available 08/17/2022 How Many Days In The Past Year Have You Consumed 5 Or More Drinks? 0 Information not available 07/16/2025 Sex: Male Functional Status Question Answer Note LastModified by Organizat ion Details LastModified Time How many times per week do you consume alcohol? Less than 1 time per week Information not available 07/16/2025 Do you or have you ever used smokeless tobacco? Current snuff user [email or web address] Information not available 07/06/2022 Are you currently employed? No [email or web address] Information not

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
--- OUTSIDE RECORDS SUMMARY | 2025-08-16 15:53 | XMS_ITS | Continuity of Care Document ---
Author Organization [facility] Address [facility] [place] [address] Care Team Providers Care Optimization Consultant Name Role Phone KARIME STEVESN Primary Care Provider KYRA [facility] Work[facility] Assessment No assessment recorded. 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 Referral gastro entero logist referr al 2024 025 shannon Oscar MD, [address], [place], [address], 08/13/2025 09:15:04 Procedures None record ed. Surgeries None record ed. Imaging None record ed. Medication Orders Breztr i Aerosp here 160 mcg-9m cg-4.8 mcg/ac tuatio n HFA aeroso l inhale r 2024 025 [facility], [facility] [place], [address], 07/30/2025 15:54:40 Patient TargetsNo targets recorded. Patient InstructionsNo instructions recorded. 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 2 12:55:25 Hyperten sive disorder 10795959 Completed 201608/24/2017 Problem Code: I10; Problem Code Type: ICD-10; Not Available [facility] 2 20:55:14 Gastroes ophageal reflux disease without esophagi tis 619009414 Completed 201602/19/2018 Geetha Hayward NP [address] [place] [address], [address] [facility] [employer] 4 11:19:01 Idiopath ic osteoart hritis 681040019 Completed 201602/15/2018 Problem Code: M15.0; Problem Code Type: ICD-10; Not Available [facility] 2 20:55:15 Restless legs syndrome 95597032 Active 2016 Problem Code: G25.81; Problem Code Type: ICD-10; Not Available [facility] 2 20:55:16 Acquired hypothyr oidism 352587574 Completed 201602/19/2018 Problem Code: 244.8; Problem Code Type: ICD-9; Not Available [employer] 2 20:55:21 Benign essentia l hyperten radha 7551136 Completed 201603/01/2021 Problem Code: 401.1; Problem Code Type: ICD-9; Not Available [facility] 2 20:55:23 Gastroes ophageal reflux disease 183422688 Completed 201602/19/2018 Problem Code: 530.81; Problem Code Type: ICD-9; Not Available [facility] 2 20:55:23 Osteoart hrosis involvin g multiple sites but not designat ed as generali zed 05521154 Completed 201608/24/2017 Problem Code: 715.89; Problem Code Type: ICD-9; Not Available [facility] 2 20:55:25 Dizzines s and giddines s 413575790 Completed 201607/06/2022 Problem Code: R42; Problem Code Type: ICD-10; KYRA brown [employer] 2 12:55:25 Benign essentia l hyperten radha 8759755 Completed 201603/01/2021 Problem Code: 401.1; Problem Code Type: ICD-9; Not Available [facility] 2 20:55:24 Restless legs syndrome 25479048 Completed 201608/01/2018 Problem Code: G25.81; Problem Code Type: ICD-10; Not Available [facility] 2 20:55:13 Hyperten sive disorder 49061056 Active 2016 Problem Code: I10; Problem Code Type: ICD-10; Not Available [facility] 2 20:55:14 Cellulit is of left upper limb 95428276196 720733 Completed 201603/18/2017 Problem Code: L03.114; Problem Code Type: ICD-10; Not Available [facility] 2 20:55:15 Benign essentia l hyperten radha 3114926 Active 2016 Problem Code: 401.1; Problem Code Type: ICD-9; Not Available [facility] 2 20:55:23 Cellulit is and abscess of hand excludin g digits Completed 201603/18/2017 Problem Code: 682.4; Problem Code Type: ICD-9; Not Available [facility] 2 20:55:26 Calculus in pelviure teric junction 712975121 Completed 201605/20/2020 Problem Code: N20.1; Problem Code Type: ICD-10; Not Available [facility] 2 20:55:16 Polyuria 07428892 Completed 201605/03/2017 Problem Code: R35.8; Problem Code Type: ICD-10; Not Available [facility] 2 20:55:17 Kidney stone 85173660 Completed 201603/01/2021 Problem Code: 592.0; Problem Code Type: ICD-9; Not Available [facility] 2 20:55:24 Pain of right shoulder joint 44385752416 156571 Completed 201607/20/2017 Problem Code: M25.511; Problem Code Type: ICD-10; Not Available [facility] 2 20:55:15 Pain of left shoulder joint 79210715599 190192 Completed 201607/20/2017 Problem Code: M25.512; Problem Code Type: ICD-10; Not Available [facility] 2 20:55:21 Shoulder joint pain 227787622 Completed 201607/20/2017 Problem Code: 719.41; Problem Code Type: ICD-9; Not Available [facility] 2 20:55:26 Acute bronchit is 54550862 Completed 201710/31/2017 Problem Code: J20.9; Problem Code Type: ICD-10; Not Available [facility] 2 20:55:15 Cough 58467578 Completed 201710/31/2017 Problem Code: 786.2; Problem Code Type: ICD-9; Not Available [facility] 2 20:55:27 Influenz a 9205897 Completed 201712/22/2017 Problem Code: J10.1; Problem Code Type: ICD-10; Not Available [facility] 2 20:55:15 Influenz a with respirat ory manifest ation other than pneumoni a Completed 201712/22/2017 Problem Code: 487.1; Problem Code Type: ICD-9; Not Available [facility] 2 20:55:25 Bullous impetigo of napkin area 403954490 Completed 201701/11/2018 Not Available [facility] 2 20:55:20 Impetigo 96382088 Completed 201701/11/2018 Problem Code: 684; Problem Code Type: ICD-9; Not Available [facility] 2 20:55:24 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 2 12:55:26 Acute peptic ulcer without hemorrha ge AND without perforat ion 25155084 Completed 201702/04/2018 Problem Code: K27.3; Problem Code Type: ICD-10; Not Available [facility] 2 20:55:20 Ulcer of foot 18966214 Completed 201703/01/2021 Problem Code: 707.15; Problem Code Type: ICD-9; Not Available [facility] 2 20:55:25 Acute peptic ulcer 687959548 Completed 201702/04/2018 Problem Code: 533.30; Problem Code Type: ICD-9; Not Available [facility] 2 20:55:25 Ulcer of heel 536640556 Completed 201707/06/2022 Problem Code: 707.14; Problem Code Type: ICD-9; KYRA brown [employer] 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 221476769 Completed 201705/20/2020 Problem Code: I70.235; Problem Code Type: ICD-10; Not Available [facility] 2 20:55:18 Ulcer of heel due to atherosc lerosis of yurok artery of limb Completed 201705/20/2020 Not Available [facility] 2 20:55:18 Post-mable gical wound care Completed 201705/20/2020 Problem Code: Z48.02; Problem Code Type: ICD-10; Not Available [facility] 2 20:55:20 Ulcer of heel 115354182 Completed 201703/01/2021 Problem Code: 707.14; Problem Code Type: ICD-9; KYRA brown [employer] 2 12:55:26 Removal of suture Completed 201703/01/2021 Problem Code: V58.32; Problem Code Type: ICD-9; Not Available [facility] 2 20:55:30 Large prostate 749864575 Active 2017 Problem Code: N40.0; Problem Code Type: ICD-10; Not Available [facility] 2 20:55:16 Benign prostati c hyperpla lacey 258718870 Completed 201703/01/2021 Problem Code: 600.00; Problem Code Type: ICD-9; Not Available [facility] 2 20:55:26 Panic disorder without agorapho quinn 27255627 Completed 201703/01/2021 Problem Code: 300.01; Problem Code Type: ICD-9; Not Available [facility] 2 20:55:22 Pain of left shoulder joint 73605153327 941685 Completed 201704/09/2018 Problem Code: M25.512; Problem Code Type: ICD-10; Not Available [facility] 2 20:55:15 Shoulder joint pain 459880547 Completed 201704/09/2018 Problem Code: 719.41; Problem Code Type: ICD-9; Not Available [facility] 2 20:55:30 Sprain of shoulder rotator cuff 63549057140 4 Completed 201706/25/2018 Problem Code: S43.422D ; Problem Code Type: ICD-10; Not Available [facility] 2 20:55:27 Mild major depressi on, single episode 39716018 Active 2017 Problem Code: F32.0; Problem Code Type: ICD-10; Not Available [facility] 2 20:55:13 Depressi ve disorder 42272649 Completed 201703/01/2021 Problem Code: 311; Problem Code Type: ICD-9; Not Available [facility] 2 20:55:22 Tension- type headache 395237915 Active 2018 Problem Code: G44.209; Problem Code Type: ICD-10; Not Available [facility] 2 20:55:14 Dizzines s and giddines s 877574021 Completed 201805/20/2020 Problem Code: R42; Problem Code Type: ICD-10; KYRA brown, [employer] 2 12:55:25 Left carotid artery occlusio n 12845519465 9105 Active 2018 Not Available [facility] 2 20:55:14 Chronic fatigue syndrome 93725609 Active 2018 Problem Code: R53.82; Problem Code Type: ICD-10; Not Available [facility] 2 20:55:17 Body mass index 20-24 - normal 220208741 Completed 201802/15/2021 KYRA brown [employer] 2 12:55:26 Counseli ng for harmful pattern of substanc e use Active 2018 Problem Code: Z71.6; Problem Code Type: ICD-10; Not Available [facility] 2 20:55:21 Influenz a vaccine needed 31223740563 06 Completed 201805/20/2020 Problem Code: Z23; Problem Code Type: ICD-10; KYRA brown, [employer] 2 12:55:25 Cellulit is of toe of left foot 68837817918 511798 Completed 201805/20/2020 Problem Code: L03.032; Problem Code Type: ICD-10; Not Available [facility] 2 20:55:15 Tension- type headache 071891475 Completed 201805/17/2021 Problem Code: G44.209; Problem Code Type: ICD-10; Not Available [facility] 2 20:55:13 Mixed hyperlip idemia 879535825 Active 2018 Problem Code: E78.2; Problem Code Type: ICD-10; Alesia Bonilla stephanie, [employer] 5 10:14:46 Chest pain 94702295 Completed 201807/06/2022 Problem Code: R07.9; Problem Code Type: ICD-10; [employer] 2 12:55:25 Body mass index 20-24 - normal 201691388 Completed 201802/15/2021 [employer]RA [employer] 2 12:55:26 Insomnia 482447471 Active 2019 Not Available [facility] 2 20:55:13 Atherosc lerosis of coronary artery without angina pectoris 74168478775 4103 Active 2019 Not Available [facility] 2 20:55:14 Nicotine dependen ce 39107726 Active 2020 Problem Code: F17.200; Problem Code Type: ICD-10; Not Available [facility] 2 20:55:13 Chronic ulcer of foot 644422640 Completed 202005/17/2021 Not Available [facility] 2 20:55:15 Body mass index 20-24 - normal 150210561 Completed 202002/15/2021 KYRA brown, [employer] 2 12:55:26 General examinat ion of patient Completed 202007/06/2022 KYRA brown, [employer] 2 12:55:25 Pain in left foot 99614247921 9107 Completed 202005/17/2021 Problem Code: M79.672; Problem Code Type: ICD-10; Not Available [facility] 20:55:16 Body mass index 20-24 - normal 718486926 Completed 202107/06/2022 KYRA brown, [employer] 2 12:55:26 Influenz a vaccine needed 07134172198 06 Completed 202107/06/2022 Problem Code: Z23; Problem Code Type: ICD-10; KYRA brown, [employer] 2 12:55:25 Lower respirat ory tract infectio n 67726809 Active 2023 Geetha Hayward NP [address] [place] [address], [address] , [employer] 4 11:18:57 Primary insomnia 9969500 Active 2023 Geetha Hayward NP [address] [place] [address], [address] , [employer] 4 11:18:56 Hyperlip idemia 24023444 Active 2023 Geetha Hayward NP [address] [place] [address], [address] , [employer] 4 11:18:59 Gastroes ophageal reflux disease without esophagi tis 410630899 Active 2023 Geetha Hayward NP [address] [place] [address], [address] , [employer] 4 11:19:01 Abdomina l pain 03726946 Active 2024 Alesia brown [employer] 5 13:04:32 Dyspnea 265202342 Active 2024 Alesia brown [employer] 5 13:04:34 Suicidal thoughts 8383334 Active 2024 Alesia brown [employer] 5 13:04:37 Problem Notes None recorded. Procedures Surgical History Date Name Laterality Status Provider Name and Address Organization Details Recorded Time Unlisted px femur/knee completed KYRA JODY [employer] 07/06/2022 12:59:53 Imaging Results None recorded. Procedure [...] blood by Pulse oximetry Systolic And Diastolic Provider Name and Address Organization Details Last Updated DateTime 5 162.56 cm 22.6 kg/m2 28138.4 g 88 /min 94 % 94 % 126/80 mm[Hg] Alesia Bonilla [facility] [employer] 5 13:57:13 Social History Question Answer Notes LastModified by Organizat ion Details LastModified Time Do You Have An Advance Directive? No [email or web address] Information not available 07/06/2022 Is Your Home Air Conditioned? Yes Information not available 07/16/2025 How Many Years Have You Consumed Alcohol? 0 Information not available 07/16/2025 Are You Blind Or Do You Have Difficulty Seeing? No [email or web address] Information not available 07/06/2022 What Is Your Level Of Caffeine Consumption? Occasional Information not available 04/09/2023 Are You A Caregiver? Yes [email or web address] Information not available 08/17/2022 In The 14 Days Before Symptom Onset, Have You Had Close Contact With A Laboratory-confir med COVID-19 While That Case Was Ill? No Information not available 08/17/2022 In The 14 Days Before Symptom Onset, Have You Had Close Contact With A Person Who Is Under Investigation For COVID-19 While That Person Was Ill? No [email or web address] Information not available 08/17/2022 Have You Been To An Area Known To Be High Risk For COVID-19? No [email or web address] Information not available 07/06/2022 Are You Deaf Or Do You Have Serious Difficulty Hearing? No [email or web address] Information not available 07/06/2022 What Type Of Diet Are You Following? REGULAR Information not available 08/17/2022 Have Your Transportation Difficulties Led To Difficulty In Accessing Medical Care? Yes Information not available 07/16/2025 What Is The Highest Grade Or Level Of School You Have Completed Or The Highest Degree You Have Received? [id number] Information not available 07/16/2025 Have There Been Any Changes To Your Family Or Social Situation? No [email or web address] Information not available 08/17/2022 When Did You [...] Do You Have A Medical Power Of Electrical Maintenance Technician? No [email or web address] Information not available 07/06/2022 What Was The Date Of Your Most Recent Tobacco Screening? 07/16/2025 Information not available 07/16/2025 What Is Your Current Pack Years? [email or web address] Information not available 07/06/2022 Have You Ever Been Counseled For Unhealthy Alcohol Use? No Information not available 07/16/2025 Do You Have Any Pets? No Information not available 07/16/2025 What Is Your Relationship Status? Single [email or web address] Information not available 07/06/2022 Do You Wear A Seatbelt When Driving Or As A Passenger? Yes Information not available 07/16/2025 Do You Use Your Seat Belt Or Car Seat Routinely? Yes Information not available 07/10/2023 Are You Sexually Active? No [email or web address] Information not available 08/27/2024 Do You Have [...] 07/16/2025 Have You Recently Traveled Abroad? No [email or web address] Information not available 07/06/2022 Do You Have Difficulty Walking Or Climbing Stairs? No [email or web address] Information not available 07/06/2022 Are You Currently In School? No [email or web address] Information not available 07/06/2022 What Contraceptive Method Was Reported At Start Of This Visit? Decline To Answer Information not available 07/16/2025 Do You Feel Safe In Your Home? Yes Information not available 07/16/2025 Do You Have Any Dietary Restrictions? No [email or web address] Information not available 08/17/2022 How Many Days [...] ever used smokeless tobacco? Current snuff user [email or web address] Information not available 07/06/2022 Are you currently employed? No Information not available 07/06/2022 Do you have transportation difficulties? Yes Information not available 07/06/2022 Are you able to care for yourself independently? Yes [email or web address] Information not available 07/06/2022 Do you have difficulty dressing, bathing, grooming, or toileting? No Information not available 07/06/2022 Do you or have you ever used e-cigarettes or vape? Never used electronic cigarettes Information not available 03/31/2025 What is your exercise level? None [email or web address] Information not available 08/17/2022 Do you use any illicit or recreational drugs? No [email or web address] Information not available 07/06/2022 Do you or have you ever used any other forms of tobacco or nicotine? Yes [email or web address] Information not available 07/06/2022 What is your level of alcohol consumption? Heavy Information not available 04/09/2023 Are you able to walk independently without assistance or assistive devices? YESWOREST [email or web address] Information not available 07/06/2022 Do you have difficulty doing errands alone? No [email or web address] Information not available 07/06/2022 Mental Status Question Answer Note LastModified by Organizat ion Details LastModified Time Do you feel stressed (tense, restless, nervous, or anxious, or unable to sleep at night)? [id number] [email or web address] Information not available 08/27/2024 Do you have difficulty concentrating, remembering or making decisions? No [email or web address] Information no t available 07/06/2022 Family History Relationship Description Onset Age of this Age Resolved Age Notes LastModified by Organization Details LastModified Time Father No current problems or disability [email or web address] Not available 06/16 12:57:40 Mother No current problems or disability [email or web address] Not available 06/16 12:57:40 Medical History Condition Response ADD/ADHD N Coronary Artery Disease Y High Cholesterol Y Hospitalizations N Acid Reflux (GERD) Y Emergency room visit since last appointm ent. N Abuse/Domestic Violence N Hypertension Y Hypothyroidism Y Immunizations Vaccine Type Date Status Note Provider Name and Address Organization Details Recorded Time zoster recombinant 024 cancelled patient objection Karime Stevens APRN [address] [place], [address], [facility] [employer] 04/04/2024 13:15:22 pneumococcal polysaccharide PPV23 024 cancelled patient objection Karime Stevens APRN [address] [facility], [place], [address], [facility] 04/04/2024 13:15:22 COVID-19 vaccine, vector-nr, rS-Ad26, PF, 0.5 mL 021 completed Not Available [facility] 06/21/2022 00:01:55 Influenza, split virus, quadrivalent, preservative 018 completed Not Available [facility] 06/21/2022 00:01:55 COVID-19, mRNA, LNP-S, PF, 30 mcg/0.3 mL dose 022 completed Not Available [facility] 06/21/2022 00:01:55 Influenza, split virus, trivalent, preservative 017 completed Not Available [facility] 06/21/2022 00:01:55 Influenza, MDCK, quadrivalent, preservative 019 completed Not Available [facility] 06/21/2022 00:01:56 pneumococcal polysaccharide PPV23 018 completed Not Available [facility] 06/21/2022 00:01:56 Past Encounters Encounter ID Performer Location Encounter Start Date Encounter Closed Date Diagnosis/Indication Diagnosis SNOMED-CT Code Diagnosis ICD10 Code Diagnosis IMO Codes Diagnosis Note [id number] Karime Stevens [place] [phone] 06/30/2025 11:10:42 06/30/2025 12:38:16 Atherosclerosis of coronary artery without angina pectoris 5385049573 25284 I25.10 Dyspnea 192691086 R06.02 Hyperlipidemia 84155788 E78.5 Benign ess ential hypertension 4141249 I10 Primary insomnia 7969895 F51.01 Gastroesop hageal reflux disease without esophagitis 290209969 K21.9 Restless l egs syndrome 54434473 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, single episode 36652510 F32.0 Body mass index 20-24 - normal 165747792 Z68.22 [id number] Karime Stevens [address] [address] 07/16/2025 13:24:49 07/16/2025 14:26:47 Chronic obstructive pulmonary disease 07716307 J44.9 536839249 Generalize d abdominal pain 014031756 R10.84 926277 Prostate s pecific antigen above reference range 493298999 R97.20 15065 Body mass index 20-24 - normal 450319973 Z68.22 01720516 Health Concerns Section Related Observation LastModified by Organization Detai ls LastModified Time None Recorded Concern Status LastModified by Organization Details LastModified Time None Recorded Payers Encounter Date Sequence Insurance Name Policy Number Policy Baum Covered Member ID Baum Member ID Guarantor Name 07/16/2025 2 PASSPORT BY [employer] (MEDICAID REPLACEMENT - HMO) Shai Garsia [id number] Shai Garsia Jr 07/16/2025 1 [place] Shai Garsia Jr [id number] Shai Garsia Jr Notes Date Note Type Note Provider Name and Address Organization Details Recorded Time 07/16/2025 text/html pt here today with c/o abd pain and bloating that has been going on for quite a while now. however at last visit on 06/30 pt denies any abd pain and states he was eating better and was gaining wt. the visit before on 05/21 is when the xray and labs were done. pt states that he has been eating better since moving in with his sister a few months ago. states that he has access to food and can eat anything he wants . pt has gained roughly 10 lbs in the last 5 months. pt states that he feels bloated and states that he will eat and 5 min later he feels hungry . states that at times he will have issues with constipation but his JAZMYN will give him little red pills and that helps him have BMs. states that he has been pretty regular but doesnt feel like he is getting it all out . states that last BM was yesterday. xray in may with gas and stool. labs in may PSA was still elevated and vit d low. i have referred pt to GI and urology and pt has been scheduled to both mult times and doesnt show up to the appts. i have went over and over how important it is to go to the appts and pt always voices he understands but seems unconcerned. pt states i will go if you make it in [place] . i explained to pt that i will refer one last time and if he no shows again this will be the last one i will make for him. pt voiced understanding. advised pt to continue with high fiber diet and exercise, increase water intake. pt states that he has became more soa recently and he is using rescue inhaler more. states that he is exposed to 2nd hand smoke. i will order daily maint inhaler. Karime Stevens APRN [address] [facility], [place], [address], [facility] [employer] 07/16/2025 15:06:23
--- OUTSIDE RECORDS SUMMARY | 2025-08-16 15:53 | XMS_ITS | Encounter Summary ---
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 Role Phone Unavailable Primary Care Provider Unavailabl e Encounter Details Date Type Department Care Team (Late st Contact Info) Description 12/04/2019 Transcribed Document [facility] Family Medicine [facility] [place] [address] ProviderPhyllis MD [address] [place] [address] Social History Tobacco Use Types Packs/Day Years Used Date Smoking Tobacco: Never Assessed Sex and Gender Information Value Date Recorded Sex Assigned at Not on file Legal Sex Male 3:35 PM CDT Gender Identity Not on file Sexual Orientation Not on file documented as of this encounter Miscellaneous Notes * Cerner Conversion Note - Phyllis Yost MD - 12/04/2019 2:57 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 Your health care provider may also give you more specific instructions. If you have problems or questions, contact your health care provider. What can I expect after the procedure? After your procedure, it is common to have: ??? Bruising in the area where a small, thin tube (catheter) was inserted. This usually fades within 1?2 weeks. ??? Blood collecting in the tissue (hematoma) that may be painful to the touch. It should usually decrease in size and tenderness within 1?2 weeks. Follow these instructions at home: Insertion area care ??? Do not take baths, swim, or use a hot tub until your health care provider approves. ??? You may shower 24?48 hours after the procedure or as directed by your health care provider. ??? Follow instructions from your health care provider about how to take care of your incision. Make sure you: ? Wash your hands with soap and water before you change your bandage (dressing). If soap and water are not available, use hand calibrator barometers. ? Change your dressing as told by your health care provider. ? Leave stitches (sutures), skin glue, or adhesive strips in place. These skin closures may need to stay in place for 2 weeks or longer. If adhesive strip edges start to loosen and curl up, you may trim the loose edges. Do not remove adhesive strips completely unless your health care provider tells you to do that. ??? Remove the bandage (dressing) and gently wash the catheter insertion site with plain soap and water. ??? Pat the area dry with a clean towel. Do not rub the area, because that may cause bleeding. ??? Do not apply powder or lotion to the incision area. ??? Check your incision area every day for signs of infection. Check for: ? More redness, swelling, or pain. ? More fluid or blood. ? Warmth. ? Pus or a bad smell. Activity ??? Do not drive for 24 hours if you were given a medicine to help you relax (sedative). ??? Do not lift anything that is heavier than 10 lb (4.5 kg) for 5 days after your procedure or as directed by your health care provider. ??? Ask your health care provider when it is okay for you: ? To return to work or school. ? To resume usual physical activities or sports. ? To resume sexual activity. Eating and drinking ??? Eat a heart-healthy diet. This should include plenty of fresh fruits and vegetables. ??? Avoid the following types of food: ? Food that is high in salt. ? Canned or highly processed food. ? Food that is high in saturated fat or sugar. ? Fried food. ??? Limit alcohol intake to no more than 1 drink a day for non- women and 2 drinks a day for men. One drink equals 12 oz of beer, 5 oz of wine, or 1? oz of hard liquor. Lifestyle ??? Do not use any products that contain nicotine or tobacco, such as cigarettes and e-cigarettes. If you need help quitting, ask your health care provider. ??? Take steps to manage and control your weight. ??? Get regular exercise. ??? Manage your blood pressure. ??? Manage other health problems, such as diabetes. General instructions ??? Take mtji-ifi-nembqsm and prescription medicines only as told by your health care provider. Blood thinners may be prescribed after your procedure to improve blood flow through the stent. ??? If you need an MRI after your heart stent has been placed, be sure to tell the health care provider who orders the MRI that you have a heart stent. ??? Keep all follow-up visits as directed by your health care provider. This is important. Contact a health care provider if: ??? You have a fever. ??? You have chills. ??? You have increased bleeding from the catheter insertion area. Hold pressure on the area. Get help right away if: ??? You develop chest pain or shortness of breath. ??? You feel faint or you pass out. ??? You have unusual pain at the catheter insertion area. ??? You have redness, warmth, or swelling at the catheter insertion area. ??? You have drainage (other than a small amount of blood on the dressing) from the catheter insertion area. ??? The catheter insertion area is bleeding, and the bleeding does not stop after 30 minutes of holding steady pressure on the area. ??? You develop bleeding from any other place, such as from your rectum. There may be bright red blood in your urine or stool, or it may appear as black, tarry stool. This information is not intended to replace advice given to you by your health care provider. Make sure you discuss any questions you have with your health care provider. Document Released: 04/20/2006 Document Revised: 06/28/2017 Document Reviewed: 06/28/2017 [employer] Interactive Patient Education ? 2019 [employer] Radial Site Care Introduction Refer to this sheet in the next few weeks. These instructions provide you with information about caring for yourself after your procedure. Your health care provider may also give you more specific instructions. Your treatment has been planned according to current medical practices, but problems sometimes occur. Call your health care provider if you have any problems or questions after your procedure. What can I expect after the procedure? After your procedure, it is typical to have the following: ??? Bruising at the radial site that usually fades within 1?2 weeks. ??? Blood collecting in the tissue (hematoma) that may be painful to the touch. It should usually decrease in size and tenderness within 1?2 weeks. Follow these instructions at home: ??? Take medicines only as directed by your health care provider. ??? You may shower 24?48 hours after the procedure or as directed by your health care provider. Remove the bandage (dressing) and gently wash the site with plain soap and water. Pat the area dry with a clean towel. Do not rub the site, because this may cause bleeding. ??? Do nottake baths, swim, or use a hot tub until your health care provider approves. ??? Check your insertion site every day for redness, swelling, or drainage. ??? Do notapply powder or lotion to the site. ??? Do notflex or bend the affected arm for 24 hours or as directed by your health care provider. ??? Do notpush or pull heavy objects with the affected arm for 24 hours or as directed by your health care provider. ??? Do notlift over 10 lb (4.5 kg) for 5 days after your procedure or as directed by your health care provider. ??? Ask your health care provider when it is okay to:? Return to work or school. ? Resume usual physical activities or sports. ? Resume sexual activity. ??? Do notdrive home if you are discharged the same day as the procedure. Have someone else drive you. ??? You may drive 24 hours after the procedure unless otherwise instructed by your health care provider. ??? Do notoperate machinery or power tools for 24 hours after the procedure. ??? If your procedure was done as an outpatient procedure, which means that you went home the same day as your procedure, a responsible adult should be with you for the first 24 hours after you arrive home. ??? Keep all follow-up visits as directed by your health care provider. This is important. Contact a health care provider if: ??? You have a fever. ??? You have chills. ??? You have increased bleeding from the radial site. Hold pressure on the site. Get help right away if: ??? You have unusual pain at the radial site. ??? You have redness, warmth, or swelling at the radial site. ??? You have drainage (other than a small amount of blood on the dressing) from the radial site. ??? The radial site is bleeding, and the bleeding does not stop after 30 minutes of holding steady pressure on the site. ??? Your arm or hand becomes pale, cool, tingly, or numb. This information is not intended to replace advice given to you by your health care provider. Make sure you discuss any questions you have with your health care provider. Document Released: 11/03/2011 Document Revised: 03/08/2017 Document Reviewed: 04/19/2015 ? 2017 [employer] Heart-Healthy Eating Plan Heart-healthy meal planning includes: ??? Limiting unhealthy fats. ??? Increasing healthy fats. ??? Making other small dietary changes. You may need to talk with your doctor or a diet specialist (dietitian) to create an eating plan that is right for you. What types of fat should I choose? Choose healthy fats. These include olive oil and canola oil, flaxseeds, walnuts, almonds, and seeds. ??? Eat more omega-3 fats. These include salmon, mackerel, sardines, tuna, flaxseed oil, and ground flaxseeds. Try to eat fish at least twice each week. ??? Limit saturated fats. ? Saturated fats are often found in animal products, such as meats, butter, and cream. ? Plant sources of saturated fats include palm oil, palm kernel oil, and coconut oil. ??? Avoid foods with partially hydrogenated oils in them. These include stick margarine, some tub margarines, cookies, crackers, and other baked goods. These contain trans fats. What general guidelines do I need to follow? Check food labels carefully. Identify foods with trans fats or high amounts of saturated fat. ??? Fill one half of your plate with vegetables and green salads. Eat 4?5 servings of vegetables per day. A serving of vegetables is: ? 1 cup of raw leafy vegetables. ? ? cup of raw or cooked cut-up vegetables. ? ? cup of vegetable juice. ??? Fill one fourth of your plate with whole grains. Look for the word whole as the first word in the ingredient list. ??? Fill one fourth of your plate with lean protein foods. ??? Eat 4?5 servings of fruit per day. A serving of fruit is: ? One medium whole fruit. ? ? cup of dried fruit. ? ? cup of fresh, frozen, or canned fruit. ? ? cup of 100% fruit juice. ??? Eat more foods that contain soluble fiber. These include apples, broccoli, carrots, beans, peas, and barley. Try to get 20?30 g of fiber per day. ??? Eat more home-cooked food. Eat less restaurant, buffet, and fast food. ??? Limit or avoid alcohol. ??? Limit foods high in starch and sugar. ??? Avoid fried foods. ??? Avoid frying your food. Try baking, boiling, grilling, or broiling it instead. You can also reduce fat by: ? Removing the skin from poultry. ? Removing all visible fats from meats. ? Skimming the fat off of stews, soups, and gravies before serving them. ? Steaming vegetables in water or broth. ??? Lose weight if you are overweight. ??? Eat 4?5 servings of nuts, legumes, and seeds per week: ? One serving of dried beans or legumes equals ? cup after being cooked. ? One serving of nuts equals 1? ounces. ? One serving of seeds equals ? ounce or one tablespoon. ??? You may need to keep track of how much salt or sodium you eat. This is especially true if you have high blood pressure. Talk with your doctor or dietitian to get more information. What foods can I eat? Grains Breads, including Armenian, white, neelam, wheat, raisin, rye, oatmeal, and Nepali. Tortillas that are neither fried nor made with lard or trans fat. Low-fat rolls, including hotdog and hamburger buns and Croatian muffins. Biscuits. Muffins. Waffles. Pancakes. Light popcorn. Whole-grain cereals. Flatbread. [place] toast. Pretzels. Breadsticks. Rusks. Low-fat snacks. Low-fat crackers, including oyster, saltine, matzo, vlad, animal, and rye. Rice and pasta, including brown rice and pastas that are made with whole wheat. Vegetables All vegetables. Fruits All fruits, but limit coconut. Meats and Other Protein Sources Lean, well-trimmed beef, veal, pork, and quigley. Chicken and turkey without skin. All fish and shellfish. Wild duck, rabbit, pheasant, and venison. Egg whites or low-cholesterol egg substitutes. Dried beans, peas, lentils, and tofu. Seeds and most nuts. Dairy Low-fat or nonfat cheeses, including ricotta, string, and mozzarella. Skim or 1% milk that is liquid, powdered, or evaporated. Buttermilk that is made with low-fat milk. Nonfat or low-fat yogurt. Beverages Mineral water. Diet carbonated beverages. Sweets and Desserts Sherbets and fruit ices. Honey, jam, marmalade, jelly, and syrups. Meringues and gelatins. Pure sugar candy, such as hard candy, jelly beans, gumdrops, mints, marshmallows, and small amounts of dark chocolate. Kle[place] food cake. Eat all sweets and desserts in moderation. Fats and Oils Nonhydrogenated (trans-free) margarines. Vegetable oils, including soybean, sesame, sunflower, olive, peanut, safflower, corn, canola, and cottonseed. Salad dressings or mayonnaise made with a vegetable oil. Limit added fats and oils that you use for cooking, baking, salads, and as spreads. Other [place] powder. Coffee and tea. All seasonings and condiments. The items listed above may not be a complete list of recommended foods or beverages. Contact your dietitian for more options. What foods are not recommended? Grains Breads that are made with saturated or trans fats, oils, or whole milk. Croissants. Butter rolls. Cheese breads. Sweet rolls. Donuts. Buttered popcorn. Swan mein noodles. High-fat crackers, such as cheese or butter crackers. Meats and Other Protein Sources Fatty meats, such as hotdogs, short ribs, sausage, spareribs, poon, rib eye roast or steak, and mutton. High-fat deli meats, such as salami and bologna. Caviar. Domestic duck and goose. Organ meats, such as kidney, liver, sweetbreads, and heart. Dairy Cream, sour cream, cream cheese, and creamed cottage cheese. Whole-milk cheeses, including blue (tera), [place], Brie, Ba[place], [place]i, Havarti, Ethiopian, cheddar, Camembert, and [place]. Whole or 2% milk that is liquid, evaporated, or condensed. Whole buttermilk. Cream sauce or high-fat cheese sauce. Yogurt that is made from whole milk. Beverages Regular sodas and juice drinks with added sugar. Sweets and Desserts Frosting. Pudding. Cookies. Cakes other than kleber food cake. Candy that has milk chocolate or white chocolate, hydrogenated fat, butter, coconut, or unknown ingredients. Buttered syrups. Full-fat ice cream or ice cream drinks. Fats and Oils Gravy that has suet, meat fat, or shortening. [place] butter, hydrogenated oils, palm oil, coconut oil, palm kernel oil. These can often be found in baked products, candy, fried foods, nondairy creamers, and whipped toppings. Solid fats and shortenings, including poon fat, salt pork, lard, and butter. Nondairy cream substitutes, such as coffee creamers and sour cream substitutes. Salad dressings that are made of unknown oils, cheese, or sour cream. The items listed above may not be a complete list of foods and beverages to avoid. Contact your dietitian for more information. This information is not intended to replace advice given to you by your health care provider. Make sure you discuss any questions you have with your health care provider. Document Released: 04/01/2013 Document Revised: 03/08/2017 Document Reviewed: 03/25/2015 [employer] Interactive Patient Education ? 2019 [employer]. Moderate Conscious Sedation, Adult, Care After These instructions provide you with information about caring for yourself after your procedure. Your health care provider may also give you more specific instructions. Your treatment has been planned according to current medical practices, but problems sometimes occur. Call your health care provider if you have any problems or questions after your procedure. What can I expect after the procedure? After your procedure, it is common: ??? To feel sleepy for several hours. ??? To feel clumsy and have poor balance for several hours. ??? To have poor judgment for several hours. ??? To vomit if you eat too soon. Follow these instructions at home: For at least 24 hours after the procedure: ??? Do not: ? Participate in activities where you could fall or become injured. ? Drive. ? Use heavy machinery. ? Drink alcohol. ? Take sleeping pills or medicines that cause drowsiness. ? Make important decisions or sign legal documents. ? Take care of children on your own. ??? Rest. Eating and drinking ??? Follow the diet recommended by your health care provider. ??? If you vomit: ? Drink water, juice, or soup when you can drink without vomiting. ? Make sure you have little or no nausea before eating solid foods. General instructions ??? Have a responsible adult stay with you until you are awake and alert. ??? Take jhzm-diq-eijlrql and prescription medicines only as told by your health care provider. ??? If you smoke, do not smoke without supervision. ??? Keep all follow-up visits as told by your health care provider. This is important. Contact a health care provider if: ??? You keep feeling nauseous or you keep vomiting. ??? You feel light-headed. ??? You develop a rash. ??? You have a fever. Get help right away if: ??? You have trouble breathing. This information is not intended to replace advice given to you by your health care provider. Make sure you discuss any questions you have with your health care provider. Document Released: 07/22/2014 Document Revised: 03/05/2017 Document Reviewed: 01/20/2017 [employer] Interactive Patient Education ? 2019 [employer]. Smokeless Tobacco Information, Adult Tobacco use is one of the leading causes of cancer and other chronic health problems. Smokeless tobacco is tobacco that is put directly into the mouth instead of being smoked. It may also be called chewing tobacco or snuff. Smokeless tobacco is made from the leaves of tobacco plants and it comes in several forms: ??? Loose, dry leaves, plugs, or twists. ??? Moist pouches. ??? Dissolving lozenges or strips. Chewing, sucking, or holding the tobacco in your mouth causes your mouth to make more saliva. The saliva mixes with the tobacco to make ?tobacco juice? that is swallowed or spit out. How can smokeless tobacco affect me? Using smokeless tobacco: ??? Increases your risk of developing cancer. Smokeless tobacco contains at least 28 different types of cancer-causing chemicals (carcinogens). ??? Increases your chances of developing other long-term health problems, including high blood pressure, heart disease, stroke, and dental problems. ??? Can make you become addicted. Nicotine is one of the chemicals in tobacco. When you chew tobacco, you absorb nicotine from the tobacco juice. This can make you feel more alert than usual. ??? Can cause problems with . women who use smokeless tobacco are more likely to miscarry or deliver a baby too early (premature delivery). ??? Can affect the appearance and health of your mouth. Using smokeless tobacco may cause bad breath, yellow-brown teeth, mouth sores, cracking and bleeding lips, gum recession, and lesions on the soft tissues of your mouth (leukoplakia). What are the benefits of not using smokeless tobacco? The benefits of not using smokeless tobacco include: ??? A healthy mind because: ? You avoid addiction. ??? A healthy body because: ? You avoid dental problems. ? You promote healthy . ? You avoid long-term health problems. ??? A healthy wallet because: ? You avoid costs of buying tobacco. ? You avoid health care costs in the future. ??? A healthy family because: ? You avoid accidental poisoning of children in your household. What can happen if I continue to use smokeless tobacco? If you continue to use smokeless tobacco, you will increase your risk for developing certain cancers. These include: ??? Tongue. ??? Lips, mouth, and gums. ??? Throat (esophagus) and voice box (larynx). ??? Stomach. ??? Pancreas. ??? Bladder. ??? Colon. Long-term use of smokeless tobacco can also lead to: ??? High blood pressure, heart disease, and stroke. ??? Gum disease, gum recession, and bone loss around the teeth. ??? Tooth decay. How do I quit using smokeless tobacco? Quitting the use of smokeless tobacco can be hard, but it can be done. Follow these steps: ??? Pick a date to quit. Set a date within the next two weeks. This gives you time to prepare. ??? Write down the reasons why you are quitting. Keep this list in places where you will see it often, such as on your bathroom mirror or in your car or wallet. ??? Identify the people, places, things, and activities that make you want to use tobacco (triggers) and avoid them. ??? Get rid of any tobacco you have and remove any tobacco smells. To do this: ? Throw away all containers of tobacco at home, at work, and in your car. ? Throw away any other items that you use regularly when you chew tobacco. ? Clean your car and make sure to remove all tobacco-related items. ? Clean your home, including curtains and carpets. ??? Tell your family, friends, and coworkers that you are quitting. This can make quitting easier. ??? Ask your health care provider for help quitting smokeless tobacco. This may involve treatment. Find out what treatment options are covered by your health insurance. ??? Keep track of how many days have passed since you quit. Remembering how long and hard you have worked to quit can help you avoid using tobacco again. Where can I get support? Ask your health care provider if there is a local support group for quitting smokeless tobacco. Where can I get more information? You can learn more about the risks of using smokeless tobacco and the benefits of quitting from these sources: ??? National Cancer [place]: www.cancer.gov ??? [place] [employer]: www.cancer.org When should I seek medical care? Seek medical care if you have: ??? White or other discolored patches in your mouth. ??? Difficulty swallowing. ??? A change in your voice. ??? Unexplained weight loss. ??? Stomach pain, nausea, or vomiting. Summary ??? Smokeless tobacco contains at least 28 different chemicals that are known to cause cancer (carcinogen). ??? Nicotine is an addictive chemical in smokeless tobacco. ??? When you quit using smokeless tobacco, you lower your risk of developing cancer. This information is not intended to replace advice given to you by your health care provider. Make sure you discuss any questions you have with your health care provider. Document Released: 03/04/2012 Document Revised: 05/17/2018 Document Reviewed: 05/12/2016 [employer] Interactive Patient Education ? 2019 [employer] documented in this encounter Plan of Treatment Not on file documented as of this encounter Visit Diagnoses Not on filedocumented in this encounter
--- OUTSIDE RECORDS SUMMARY | 2025-08-16 15:53 | XMS_ITS | Encounter Summary ---
Author Organization [employer] ([place], [place], [place], [place], [place]) Address [address] [place] [address] Care Team Providers Care Screen Room Operator Name Role Phone Unavailable Primary Care Provider Unavailabl e Encounter Details Date Type Department Care Team (Late st Contact Info) Description 12/04/2019 Transcribed Document [facility] Family Medicine [facility] [place] [address] ProviderPhyllis MD [facility] [place] [address] Social History Tobacco Use Types Packs/Day Years Used Date Smoking Tobacco: Never Assessed Sex and Gender Information Value Date Recorded Sex Assigned at Not on file Legal Sex Male 3:35 PM CDT Gender Identity Not on file Sexual Orientation Not on file documented as of this encounter Miscellaneous Notes * [employer] Conversion Note - Phyllis Yost MD - 12/04/2019 11:42 AM GEOPHYSICAL LABORATORY SUPERVISOR DATE OF SERVICE: 12/04/2019 INDICATIONS: Lifestyle limiting class 3 exertional angina, coronary artery disease. ADDITIONAL REFERRING PHYSICIAN: Karime Stevens. PROCEDURE PERFORMED: Standard left heart catheterization. TECHNIQUE: A 5/6-Chilean sheath was placed in the right radial artery. A 5 mg of verapamil, 3000 units of heparin were administered via the radial artery sheath. Morgan catheter was used for selective angiography of left and right coronary arteries, and obtaining pressures in the left ventricle. Left ventriculogram was not performed. Following diagnostic catheterization, percutaneous intervention to the circumflex artery was performed. No complications. HEMODYNAMICS: Left ventricle 100/10 mmHg, aorta 100/60 mmHg. DIAGNOSES: 1. Severe single vessel coronary artery disease. 2. Normal left ventricular filling pressure without gradient across the aortic valve. CORONARY ANATOMY: 1. Left main trunk: Short left main trunk. 2. LAD: Moderate caliber vessel, which gives rise to several small caliber diagonal branches before extending beyond the apex. There is mild atherosclerosis of 30% to 40% narrowing present in the LAD. 3. Ramus intermedius branch: A long, large caliber vessel, which bifurcates distally. There is continued patency of the proximal vessel stent. 4. Circumflex artery: Moderate caliber vessel, which gives rise to a small caliber posterolateral branch and a small caliber AV circumflex artery. There is a severe lesion of 70% stenosis present in the mid circumflex artery. There is continued patency of the proximal vessel stent. 5. Right coronary artery: Small caliber dominant vessel, which gives rise to a moderate caliber posterior descending artery, small caliber posterolateral branch. Mild atherosclerosis present in the right coronary artery. 6. Left ventricle: Normal left ventricular filling pressure without gradient across the aortic valve. IMPRESSION: Angiographically, the patient has severe single vessel coronary artery disease in the mid circumflex artery. There is continued patency of the proximal ramus and circumflex artery stents. Given his lifestyle limiting class III and exertional angina-like symptoms, percutaneous intervention was performed. PERCUTANEOUS INTERVENTION: The left coronary artery was engaged using FL3.5 guide catheter. The circumflex lesion was crossed using a Whisper wire. Angioplasty was initially performed using 2.2 x 12 Emerge balloon with inflation to 12 atmospheres. A 2.25 x 12 Synergy stent was then successfully deployed with inflation to 14 atmospheres. No residual stenosis. Intracoronary nitroglycerin was administered to optimize vessel sizing. No complications. The patient received additional intravenous heparin for a total of 70 units/kg. The ACT was 260 sec. He had taken aspirin and Brilinta earlier in the day. The radial artery sheath was removed and the access site successfully compressed using a TR band. /[id number] Kiel Vernon MD SSL/AQ / SSL / MODL /[id number] CC: MD Karime Mon APRN Electronically signed by Padma [facility] Conversion Surface To Air Weapons Officer Cerner at 02/01/2023 8:50 AM CDT documented in this encounter Plan of Treatment Not on file documented as of this encounter Visit Diagnoses Not on filedocumented in this encounter
--- OUTSIDE RECORDS SUMMARY | 2025-08-16 15:53 | XMS_ITS | Referral Summary ---
Author Organization [employer] ([place], [place], [place], [place], [place]) Address [address] [place] [address] Care Team Providers Care Gasoline Tractor Operator Name Role Phone Unavailable Primary Care Provider Unavailabl e Social History Tobacco Use Types Packs/Day Years Used Date Smoking Tobacco: Never Assessed Sex and Gender Information Value Date Recorded Sex Assigned at Not on file Legal Sex Male 3:35 PM CDT Gender Identity Not on file Sexual Orientation Not on file Plan of Treatment Not on file
--- OUTSIDE RECORDS SUMMARY | 2025-08-16 15:53 | XMS_ITS | Encounter Summary ---
Author Organization [facility] Address [address] [place] [id number] Care Team Providers Care Engineering Project Designer Name Role Phone Karime Stevens Primary Care Provider Encounter Details Date Type Department Care Team (Latest Contact Info) Description 08/05/2025 Travel Social History Tobacco Use Types Packs/Day Years [...] Description 09/15/2025 1:30 PM EST Office Visit [facility] [address] [place] [address] Bhargavi Crouch APRN [address] [place] [address] documented as of this encounter Visit Diagnoses Not on filedocumented in this encounter Care Teams Engineering Project Designer Relationship Specialty Start Date End Date Karime [place] [address] PCP - General Nurse Practitioner 07/06/23 documented as of this encounter
--- OUTSIDE RECORDS SUMMARY | 2025-08-16 15:53 | XMS_ITS | Encounter Summary ---
Author Organization [employer] ([place], [place], [place], [place], [place]) Address [address] [place] [address] Care Team Providers Care Cradle Slide Maker Name Role Phone Unavailable Primary Care Provider Unavailabl e Encounter Details Date Type Department Care Team (Late st Contact Info) Description 12/04/2019 Transcribed Document [facility] [place] Family Medicine [address] [place] [address] ProviderPhyllis MD [facility] [address] Social History Tobacco Use Types Packs/Day Years Used Date Smoking Tobacco: Never Assessed Sex and Gender Information Value Date Recorded Sex Assigned at Not on file Legal Sex Male 3:35 PM CDT Gender Identity Not on file Sexual Orientation Not on file documented as of this encounter Miscellaneous Notes * [employer]ner Conversion Note - Historical ProviderMD - 12/04/2019 3:07 PM PRODUCTION OFFICER Nursing Discharge Summary Entered On: 12/04/2019 15:08 EST Performed On: 12/04/2019 15:07 EST by Elizabeth Dougherty, sports book server Documentation Patient Disposition, General : Discharge Discharge To : Home with ambulatory/outpatient follow-up Mode Of Departure, General Discharge : Private vehicle Accompanied By, Discharge : Significant other IV Discontinued : Yes Personal Belongings With Patient : Yes Discharge Instructions Reviewed With, Opportunity For Questions Given : Patient, Significant other Patient Education Completed : Yes Teaching Method : Explanation, Printed materials Teaching Evaluation : Verbalizes understanding Elizabeth Dougherty RN - 12/04/2019 15:07 EST Electronically signed by Padma [facility] Conversion Reading Teacher Cerner at 02/01/2023 8:52 AM CDT documented in this encounter Plan of Treatment Not on file documented as of this encounter Visit Diagnoses Not on filedocumented in this encounter
--- OUTSIDE RECORDS SUMMARY | 2025-08-16 15:53 | XMS_ITS | Data Portability ---
Author Organization [employer] [facility] Address [address] [place] [address] Care Team Providers Care Mobile Home Set Up Person Name Role Phone KARIME STEVENS Primary Care Provider KYRA Marshall Community Health Worker Assessment No assessment recorded. 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 Not available Not available Not available Lab lipid panel, serum 2024 025 [facility] [place], [address] [place] [address], [id number], 05/22/2025 08:11:53 CBC w/ auto diff 2024 025 [facility] [address] [place] [address], [id number], 05/22/2025 08:11:52 TSH + free T4, serum 2024 025 [facility] [place], [address] [place] [address], [id number], 05/22/2025 08:11:51 CMP, serum or plasma 2024 025 [facility] [place], [address] [place] [address] [place], [address], 05/22/2025 08:11:53 HbA1c (hemog lobin A1c), blood 2024 025 [facility] [address] [place], [address], 05/22/2025 08:11:55 vitami n D, 25-hyd layne, total, serum 2024 025 [facility] [address] [place], [address], 05/22/2025 08:11:56 PSA, total, serum or plasma 2024 025 [facility]), [address] [place], [address], 05/22/2025 08:11:56 cobala min and folate panel, serum 2024 025 [facility]), [address] [place], [address], 05/22/2025 08:11:54 noninv asive colore ctal cancer DNA + occult blood screen ing, QL, stool 2024 025 [facility], [address], [address], [place], [address], 05/20/2025 09:37:49 Referral gastro entero logist referr al 2024 025 shannon Oscar MD, [address], [place], [address], 08/13/2025 09:15:04 Procedures None record ed. Surgeries None record ed. Imaging XR, abdome n 2024 025 [facility], [address] [place] [address], [place], [address], 05/21/2025 16:54:48 Medication Orders Breztr i Aerosp here 160 mcg-9m cg-4.8 mcg/ac tuatio n HFA aeroso l inhale r 2024 025 [facility], [address] [place] [address], [address], 07/30/2025 15:54:40 aspiri n 81 mg chewab le tablet 2024 025 [facility], [address] [place] [address], [id number], 07/23/2025 14:13:54 Brilin ta 90 mg tablet 2024 025 [facility], [address] [place] [address], [address], 06/30/2025 12:46:37 melato fariha 10 mg capsul e 2024 025 [facility], [address] [place] [address], [address], 06/30/2025 12:31:27 trazod one 50 mg tablet 2024 025 [facility], [address] [place] [address], [address], 06/30/2025 12:46:38 atorva statin 80 mg tablet 2024 025 [facility], [address] [place] [address], [address], 06/30/2025 12:46:33 ropini role 2 mg tablet 2024 025 [facility], [address] [place] [address], [address], 06/30/2025 12:46:35 omepra zole 40 mg capsul e,sara yed releas e 2024 025 [facility], [address] [place] [address], [address], 06/30/2025 12:46:37 sertra line 25 mg tablet 2024 025 [facility], [address] [place] [address], [address], 06/30/2025 12:46:36 lisino pril 10 mg tablet 2024 025 [facility], [address] [place] [address], [address], 06/30/2025 12:46:34 Ventol in HFA 90 mcg/ac tuatio n aeroso l inhale r 2024 025 [facility], [address] [place] [address], [address], 06/30/2025 12:46:38 Ventol in HFA 90 mcg/ac tuatio n aeroso l inhale r 2024 025 [facility], [address] [place] [address], [address], 05/21/2025 15:45:29 aspiri n 81 mg chewab le tablet 2024 025 [facility], [address] [place] [address], [address], 06/25/2025 12:19:45 Brilin ta 90 mg tablet 2024 025 [facility], [address] [place] [address], [address], 03/31/2025 14:54:31 melato fariha 10 mg capsul e 2024 025 [facility], [address] [place] [address], [address], 04/25/2025 12:24:01 trazod one 50 mg tablet 2024 025 [facility], [address] [place] [address], [address], 03/31/2025 14:54:34 atorva statin 80 mg tablet 2024 025 [facility], [address] [place] [address], [address], 03/31/2025 14:54:32 ropini role 2 mg tablet 2024 025 [facility], [address] [place] [address], [address], 03/31/2025 14:54:31 sertra line 25 mg tablet 2024 025 [facility], [address] [place] [address], [address], 03/31/2025 14:54:29 lisino pril 10 mg tablet 2024 025 [facility], [address] [place] [address], [address], 03/31/2025 14:54:30 omepra zole 40 mg capsul e,sara yed releas e 2024 025 [facility], [address] [place] [address], [address], 03/31/2025 14:54:33 Patient TargetsNo targets recorded. Patient InstructionsNo instructions recorded. 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) [address] [facility], [place], [address], 05/22/2025 08:11:51 05/21/2005/22/2025 TSH+F REE T4 T4,free(dire ct) 1.14 NG/dL 0.82-1 .77 normal Not Available [facility] ([facility]) [address] [facility], [place], [address], 05/22/2025 08:11:51 05/21/20 25 05/22/2025 CBC WITH DIFFE RENTI AL/PL ATELE T WBC 7.0 x10e3 /uL 3.4-10 .8 normal Not Available [facility] ([facility]) [address] [facility], [place], [address], 05/22/2025 08:11:52 05/21/20 25 05/22/2025 CBC WITH DIFFE RENTI AL/PL ATELE T RBC 4.98 x10e6 /uL 4.14-5 .80 normal Not Available [facility] ([facility]) [address] [facility], [place], [address], 05/22/2025 08:11:52 05/21/20 25 05/22/2025 CBC WITH DIFFE RENTI AL/PL ATELE T hemoglobin 14.5 g/dL 13.0-1 7.7 normal Not Available [facility] ([facility]) [address] [place], [address], 05/22/2025 08:11:52 05/21/20 25 05/22/2025 CBC WITH DIFFE RENTI AL/PL ATELE T hematocrit 44.4 % 37.5-5 1.0 normal Not Available [facility] ([facility]) [address] [place], [address], 05/22/2025 08:11:52 05/21/20 25 05/22/2025 CBC WITH DIFFE RENTI AL/PL ATELE T MCV 89 fL 79-97 normal Not Available [facility] ([facility]) [address] [facility], [place], [address], 05/22/2025 08:11:52 05/21/20 25 05/22/2025 CBC WITH DIFFE RENTI AL/PL ATELE T MCH 29.1 pg 26.6-3 3.0 normal Not Available [facility] ([facility]) [address] [facility], [place], [address], 05/22/2025 08:11:52 05/21/20 25 05/22/2025 CBC WITH DIFFE RENTI AL/PL ATELE T MCHC 32.7 g/dL 31.5-3 5.7 normal Not Available [facility] ([facility]) [address] [facility], [place], [address], 05/22/2025 08:11:52 05/21/20 25 05/22/2025 CBC WITH DIFFE RENTI AL/PL ATELE T RDW 14.2 % 11.6-1 5.4 Not Available [facility] ([facility]) [address] [place], [address], 05/22/2025 08:11:52 05/21/20 25 05/22/2025 CBC WITH DIFFE RENTI AL/PL ATELE T platelets 228 x10e3 /uL 150-45 0 normal Not Available [facility] ([facility]) [address] [facility], [place], [address], 05/22/2025 08:11:52 05/21/20 25 05/22/2025 CBC WITH DIFFE RENTI AL/PL ATELE T neutrophils 42 % not estab. normal Not Available [facility] ([facility]) [address] [facility], [place], [address], 05/22/2025 08:11:52 05/21/20 25 05/22/2025 CBC WITH DIFFE RENTI AL/PL ATELE T lymphs 40 % not estab. normal Not Available [facility] ([facility]) [address] [facility], [place], [address], 05/22/2025 08:11:52 05/21/20 25 05/22/2025 CBC WITH DIFFE RENTI AL/PL ATELE T monocytes 16 % not estab. normal Not Available [facility] ([facility]) [address] [facility], [place], [address], 05/22/2025 08:11:52 05/21/20 25 05/22/2025 CBC WITH DIFFE RENTI AL/PL ATELE T eos 1 % not estab. normal Not Available [facility] ([facility]) [address] [facility], [place], [address], 05/22/2025 08:11:52 05/21/20 25 05/22/2025 CBC WITH DIFFE RENTI AL/PL ATELE T basos 0 % not estab. normal Not Available [facility] (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) [address] [place], [address], 05/22/2025 08:11:52 05/21/20 25 05/22/2025 CBC WITH DIFFE RENTI AL/PL ATELE T neutrophils (absolute) 3.0 x10e3 /uL 1.4-7. 0 normal Not Available [facility] ([facility]) [address] [place], [address], 05/22/2025 08:11:52 05/21/20 25 05/22/2025 CBC WITH DIFFE RENTI AL/PL ATELE T lymphs (absolute) 2.8 x10e3 /uL 0.7-3. 1 normal Not Available [facility] ([facility]) [address] [facility], [place], [address], 05/22/2025 08:11:52 05/21/20 25 05/22/2025 CBC WITH DIFFE RENTI AL/PL ATELE T monocytes(ab solute) 1.1 x10e3 /uL 0.1-0. 9 above high normal Not Available [facility] ([facility]) [address] [facility], [place], [address], 05/22/2025 08:11:52 05/21/20 25 05/22/2025 CBC WITH DIFFE RENTI AL/PL ATELE T eos (absolute) 0.1 x10e3 /uL 0.0-0. 4 normal Not Available [facility] ([facility]) [address] [facility], [place], [address], 05/22/2025 08:11:52 05/21/20 25 05/22/2025 CBC WITH DIFFE RENTI AL/PL ATELE T baso (absolute) 0.0 x10e3 /uL 0.0-0. 2 normal Not Available [facility] ([facility]) [address] [facility], [place], [address], 05/22/2025 08:11:52 05/21/20 25 05/22/2025 CBC WITH DIFFE RENTI AL/PL ATELE T immature granulocytes 1 % not estab. Not Available [facility] ([facility]) [address] [facility], [place], [address], 05/22/2025 08:11:52 05/21/20 25 05/22/2025 CBC WITH DIFFE RENTI AL/PL ATELE T immature grans (abs) 0.1 x10e3 /uL 0.0-0. 1 Not Available [facility] ([facility]) [address] [facility], [place], [address], 05/22/2025 08:11:52 05/21/20 25 05/22/2025 CBC WITH DIFFE RENTI AL/PL ATELE T NRBC DINING CAR WAITER/WAITRESS Not Available [facility] ([facility]) [address] [facility], [place], [address], 05/22/2025 08:11:52 05/21/20 25 05/22/2025 CBC WITH DIFFLavinia AGRAWAL AL/PL ATELE T hematology comments: DINING CAR WAITER/WAITRESS Not Available [facility] ([facility]) [address] [facility], [place], [address], 05/22/2025 08:11:52 05/21/20 25 05/21/2025 COMP. METAB OLIC PANEL (14) interpretati on: Commen t GFR estim ate at the follo wing level for >or=3 month s is class ified as follo ws: GFR WITH KIDNE Y DAMAG E WITHO UT KIDNE Y DAMAG E >or=9 0 Stage 1 Alisia l 60-89 Stage 2 Decr eased GFR 30-59 Stage 3 Stage 3 15-29 Stage 4 Stage 4 <15 (or dialy sis) Stage 5 Stage 5 Estim ated GFR will over estim ate true GFR if serum creat inine is risin g as in acute renal failu re and will under estim ate true GFR if serum creat inine is decli dale as in resol ving acute renal failu re. Addit ional infor ines addy may be found at www.k doqi. org. Not Available [facility] ([facility]) [address] [facility], [place], [address], 05/22/2025 08:11:53 05/21/20 25 05/22/2025 COMP. METAB OLIC PANEL (14) glucose 90 mg/dL 70-99 normal Not Available [facility] ([facility]) [address] [facility], [place], [address], 05/22/2025 08:11:53 05/21/20 25 05/22/2025 COMP. METAB OLIC PANEL (14) BUN 13 mg/dL 8-27 normal Not Available [facility] ([facility]) [address] [facility], [place], [address], 05/22/2025 08:11:53 05/21/20 25 05/22/2025 COMP. METAB OLIC PANEL (14) creatinine 0.75 mg/dL 0.76-1 .27 below low normal Not Available [facility] ([facility]) [address] [facility], [place], [address], 05/22/2025 08:11:53 05/21/20 25 05/22/2025 COMP. METAB OLIC PANEL (14) eGFR 92 mL/mi n/1.7 3 >59 normal Not Available [facility] ([facility]) [address] [facility] [place], [address], 05/22/2025 08:11:53 05/21/20 25 05/22/2025 COMP. METAB OLIC PANEL (14) BUN/creatini ne ratio 17 10-24 normal Not Available [facility] ([facility]) [address] [facility], [place], [address], 05/22/2025 08:11:53 05/21/20 25 05/22/2025 COMP. METAB OLIC PANEL (14) sodium 140 mmol/ L 134-14 4 normal Not Available [facility] ([facility]) [address] [facility], [place], [address], 05/22/2025 08:11:53 05/21/20 25 05/22/2025 COMP. METAB OLIC PANEL (14) potassium 4.1 mmol/ L 3.5-5. 2 normal Not Available [facility] ([facility]) [address] [facility], [place], [address], 05/22/2025 08:11:53 05/21/20 25 05/22/2025 COMP. METAB OLIC PANEL (14) chloride 103 mmol/ L 96-106 normal Not Available [facility] ([facility]) [address] [facility], [place], [address], 05/22/2025 08:11:53 05/21/20 25 05/22/2025 COMP. METAB OLIC PANEL (14) carbon dioxide, total 21 mmol/ L 20-29 normal Not Available [facility] ([facility]) [address] [facility] [place], [address], 05/22/2025 08:11:53 05/21/20 25 05/22/2025 COMP. METAB OLIC PANEL (14) calcium 9.6 mg/dL 8.6-10 .2 normal Not Available [facility] ([facility]) [address] [facility] [place], [address], 05/22/2025 08:11:53 05/21/20 25 05/22/2025 COMP. METAB OLIC PANEL (14) protein, total 7.3 g/dL 6.0-8. 5 normal Not Available [facility] ([facility]) [address] [facility] [place], [address], 05/22/2025 08:11:53 05/21/20 25 05/22/2025 COMP. METAB OLIC PANEL (14) albumin 4.5 g/dL 3.8-4. 8 normal Not Available [facility] ([facility]) [address] [facility] [place], [address], 05/22/2025 08:11:53 05/21/20 25 05/22/2025 COMP. METAB OLIC PANEL (14) globulin, total 2.8 g/dL 1.5-4. 5 Not Available [facility] ([facility]) [address] [place], [address], 05/22/2025 08:11:53 05/21/20 25 05/22/2025 COMP. METAB OLIC PANEL (14) bilirubin, total 0.4 mg/dL 0.0-1. 2 normal Not Available [facility] ([facility]) [address] [facility] [place], [address], 05/22/2025 08:11:53 05/21/20 25 05/22/2025 COMP. METAB OLIC PANEL (14) alkaline phosphatase 116 IU/L 44-121 normal Not Available [facility]) [address] [facility] [place], [address], 05/22/2025 08:11:53 05/21/20 25 05/22/2025 COMP. METAB OLIC PANEL (14) AST (SGOT) 23 IU/L 0-40 normal Not Available [facility] ([facility]) [address] [facility] [place], [address], 05/22/2025 08:11:53 05/21/20 25 05/22/2025 COMP. METAB OLIC PANEL (14) ALT (SGPT) 29 IU/L 0-44 normal Not Available [facility] ([facility]) [address] [facility] [place], [address], 05/22/2025 08:11:53 05/21/20 25 05/22/2025 LIPID PANEL cholesterol, total 156 mg/dL 100-19 9 normal Not Available [facility] ([facility]) [address] [facility] [place], [address], 05/22/2025 08:11:53 05/21/20 25 05/22/2025 LIPID PANEL triglyceride s 115 mg/dL 0-149 normal Not Available [facility] ([facility]) [address] [place], [address], 05/22/2025 08:11:53 05/21/20 25 05/22/2025 LIPID PANEL HDL cholesterol 48 mg/dL >39 normal Not Available [facility]) [address] [place], [address], 05/22/2025 08:11:53 05/21/20 25 05/22/2025 LIPID PANEL VLDL cholesterol reuben 21 mg/dL 5-40 Not Available [facility] ([facility]) [address] [place], [address], 05/22/2025 08:11:53 05/21/20 25 05/22/2025 LIPID PANEL LDL chol calc (rust) 87 mg/dL 0-99 Not Available [facility] (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) [address] [facility], [place], [address], 05/22/2025 08:11:53 05/21/20 25 05/22/2025 VITAM IN B12 AND FOLAT E vitamin B12 605 pg/mL 232-12 45 normal Not Available [facility] ([facility]) [address] [facility], [place], [address], 05/22/2025 08:11:54 05/21/20 25 05/22/2025 VITAM IN B12 AND FOLAT E folate (folic acid), serum 8.7 NG/mL >3.0 normal A serum folat e leopoldo ntrat ion of less than 3.1 ng/mL is consi dered to repre sent clini reuben defic iency . Not Available [facility] ([facility]) [address] [facility], [place], [address], 05/22/2025 08:11:54 05/21/20 25 05/22/2025 HEMOG LOBIN A1C hemoglobin A1C 5.6 % 4.8-5. 6 normal Predi abete s: 5.7 - 6.4 Diabe otilio: >6.4 Glyce hailey contr ol for adult s with diabe otilio: <7.0 Not Available [facility] ([facility]) [address] [facility], [place], [address], 05/22/2025 08:11:55 05/21/20 25 05/22/2025 PROST ATE-S PECIF IC AG prostate specific Ag 7.4 NG/mL 0.0-4. 0 above high normal Fuad ECLIA metho dolog y. Accor ding to the Ameri can Urolo gical Assoc iatio n, Serum PSA shoul d decre ase and remai n at undet ectab le level s after radic al prost atect heike. The AUA defin es bioch emica l recur rence as an initi al PSA value 0.2 ng/mL or great er follo wed by a subse quent confi rmato ry PSA value 0.2 ng/mL or great er. Value s obtai andres with diffe rent assay metho ds or kits canno t be used inter garibay eably . Resul ts canno t be inter prete d as absol caddo evide nce of the prese nce or absen ce of johnny escudero se. Not Available [facility] ([facility]) [address] [facility], [place], [address], 05/22/2025 08:11:56 05/21/20 25 05/22/2025 VITAM IN D, 25-HY DROXY vitamin D, 25-hydroxy 18.8 NG/mL 30.0-1 00.0 below low normal Vitam in D defic iency has been defin ed by the Insti tute of Medic ine and an Endoc [facility] Socie ty pract ice guide line as a level of serum 25-OH vitam in D less than 20 ng/mL (1,2) . The Endoc rine Socie ty went on to furth er defin e vitam in D insuf ficie ncy as a level betwe en 21 and 29 ng/mL (2). 1. IOM (Inst itute of Medic ine). 2009. Dieta ry refer ence intak es for calci um and D. Tawanda howard DC: The Natio nal [employer] . 2. Sathish huynh MF, Korin pham [place], [place] off-F errjamel i STRONG, et al. Evalu ation , treat ment, and preve ntion of vitam in D defic iency : an Endoc rine Socie ty clini reuben pract ice guide line. JCEM. 2010; 96(7) :1911 -30. Not Available [facility] ([facility]) [address] [place], [address], 05/22/2025 08:11:56 08/07/2008/08/2025 LIPID PANEL cholesterol, total 128 mg/dL 100-19 9 normal Not Available [facility] ([facility]) [address] [facility] [place], [address], 08/08/2025 07:07:33 08/07/2008/08/2025 LIPID PANEL triglyceride s 94 mg/dL 0-149 normal Not Available [facility] ([facility]) [address] [place], [address], 08/08/2025 07:07:33 08/07/2008/08/2025 LIPID PANEL HDL cholesterol 39 mg/dL >39 below low normal Not Available [facility] ([facility]) [address] [place], [address], 08/08/2025 07:07:33 08/07/2008/08/2025 LIPID PANEL VLDL cholesterol reuben 18 mg/dL 5-40 Not Available [facility] ([facility]) [address] [place], [address], 08/08/2025 07:07:33 08/07/2008/08/2025 LIPID PANEL LDL chol calc (rust) 71 mg/dL 0-99 Not Available [facility] (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) [address] [place], [address], 08/08/2025 07:07:33 05/21/20 XR, abdom en No observ ation record ed. [email or web address], [address], 05/29/2025 13:17:22 Result Notes None recorded. 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 2 20:55:13 Mixed hyperlip idemia 570170429 Completed 201605/23/2017 Problem Code: E78.2; Problem Code Type: ICD-10; Alesia brown, [employer] 5 10:14:46 Tobacco dependen ce caused by cigarett es [id number] Completed 201607/06/2022 Problem Code: F17.210; Problem Code Type: ICD-10; KYRA brown, [employer] 2 12:55:25 Hyperten sive disorder 31604152 Completed 201608/24/2017 Problem Code: I10; Problem Code Type: ICD-10; Not Available [facility] 2 20:55:14 Gastroes ophageal reflux disease without esophagi tis 409950221 Completed 201602/19/2018 Geetha Hayward, DEEL [address] [place] [address], [phone] , [employer] 4 11:19:01 Idiopath ic osteoart hritis [id number] Completed 201602/15/2018 Problem Code: M15.0; Problem Code Type: ICD-10; Not Available [facility] 2 20:55:15 Restless legs syndrome 25797007 Active 2016 Problem Code: G25.81; Problem Code Type: ICD-10; Not Available [facility] 2 20:55:16 Acquired hypothyr oidism 490358700 Completed 201602/19/2018 Problem Code: 244.8; Problem Code Type: ICD-9; Not Available [facility] 2 20:55:21 Benign essentia l hyperten radha 6639197 Completed 201603/01/2021 Problem Code: 401.1; Problem Code Type: ICD-9; Not Available [facility] 2 20:55:23 Gastroes ophageal reflux disease 980053139 Completed 201602/19/2018 Problem Code: 530.81; Problem Code Type: ICD-9; Not Available [facility] 2 20:55:23 Osteoart hrosis involvin g multiple sites but not designat ed as generali zed 16185770 Completed 201608/24/2017 Problem Code: 715.89; Problem Code Type: ICD-9; Not Available [facility] 2 20:55:25 Dizzines s and giddines s 851120010 Completed 201607/06/2022 Problem Code: R42; Problem Code Type: ICD-10; KYRA brown [employer] 2 12:55:25 Benign essentia l hyperten radha 2146647 Completed 201603/01/2021 Problem Code: 401.1; Problem Code Type: ICD-9; Not Available [facility] 2 20:55:24 Restless legs syndrome 13902884 Completed 201608/01/2018 Problem Code: G25.81; Problem Code Type: ICD-10; Not Available [facility] 2 20:55:13 Hyperten sive disorder 15843400 Active 2016 Problem Code: I10; Problem Code Type: ICD-10; Not Available [facility] [facility] 2 20:55:14 Cellulit is of left upper limb [id number] 684718 Completed 201603/18/2017 Problem Code: L03.114; Problem Code Type: ICD-10; Not Available [facility] 2 20:55:15 Benign essentia l hyperten radha 9531987 Active 2016 Problem Code: 401.1; Problem Code Type: ICD-9; Not Available [facility] 2 20:55:23 Cellulit is and abscess of hand excludin g digits Completed 201603/18/2017 Problem Code: 682.4; Problem Code Type: ICD-9; Not Available [facility] 2 20:55:26 Calculus in pelviure teric junction 914514782 Completed 201605/20/2020 Problem Code: N20.1; Problem Code Type: ICD-10; Not Available [facility] 2 20:55:16 Polyuria 71842361 Completed 201605/03/2017 Problem Code: R35.8; Problem Code Type: ICD-10; Not Available [facility] 2 20:55:17 Kidney stone 54275880 Completed 201603/01/2021 Problem Code: 592.0; Problem Code Type: ICD-9; Not Available [facility] 2 20:55:24 Pain of right shoulder joint 41507997236 250555 Completed 201607/20/2017 Problem Code: M25.511; Problem Code Type: ICD-10; Not Available [facility] 2 20:55:15 Pain of left shoulder joint 90466757031 663532 Completed 201607/20/2017 Problem Code: M25.512; Problem Code Type: ICD-10; Not Available [facility] 2 20:55:21 Shoulder joint pain 068931923 Completed 201607/20/2017 Problem Code: 719.41; Problem Code Type: ICD-9; Not Available [facility] 2 20:55:26 Acute bronchit is 22908585 Completed 201710/31/2017 Problem Code: J20.9; Problem Code Type: ICD-10; Not Available [facility] 2 20:55:15 Cough 05420320 Completed 201710/31/2017 Problem Code: 786.2; Problem Code Type: ICD-9; Not Available [facility] 2 20:55:27 Influenz a 5820917 Completed 201712/22/2017 Problem Code: J10.1; Problem Code Type: ICD-10; Not Available [facility] 2 20:55:15 Influenz a with respirat ory manifest ation other than pneumoni a Completed 201712/22/2017 Problem Code: 487.1; Problem Code Type: ICD-9; Not Available [facility] 2 20:55:25 Bullous impetigo of [place] area 229842373 Completed 201701/11/2018 Not Available [facility] 2 20:55:20 Impetigo 16551657 Completed 201701/11/2018 Problem Code: 684; Problem Code Type: ICD-9; Not Available [facility] 2 20:55:24 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 2 12:55:26 Acute peptic ulcer without hemorrha ge AND without perforat ion 96652128 Completed 201702/04/2018 Problem Code: K27.3; Problem Code Type: ICD-10; Not Available [facility] 2 20:55:20 Ulcer of foot 31548429 Completed 201703/01/2021 Problem Code: 707.15; Problem Code Type: ICD-9; Not Available [facility] 2 20:55:25 Acute peptic ulcer 527498427 Completed 201702/04/2018 Problem Code: 533.30; Problem Code Type: ICD-9; Not Available [facility] 2 20:55:25 Ulcer of heel 025005143 Completed 201707/06/2022 Problem Code: 707.14; Problem Code Type: ICD-9; KYRA brown [employer] 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 259650658 Completed 201705/20/2020 Problem Code: I70.235; Problem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 well on current medication regime and has no new complaints today. pt states that he doesnt have money to get his scrips today and wanted to know if i could pull some strings . i told pt that there are no strings to pull. pt states that a pt out in the lobby paid for his meds last time. 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 states that the rats where so big at his other sisters that he was afraid to sleep that they would eat him up. pt is still dirty but his mayes and hair is shaved. pt is very inappropriate today, as he is most visits, but stating that i look good in that green and that he hasnt been with a woman in 2 years. pt requests a colonoscopy because his girlfriend wants him to have one. states that his stomach feels like something heavy . pt has never had a colonoscopy. i suggested a cologuard due to pt never keeps outside appts due to not having a ride. pt is agreeable but states that he has a ride now due to moving in with sister. i asked frieda to get phone number to urologist so that pt can reschedule appt. Karime Stevens, WEB CONTENT DEVELOPER [address] [facility], [place], [address], [employer] 03/31/2025 13:42:18 05/21/2025 text/html pt here today with c/o abd pain on/off for a while. states that he will eat and still be hungry . states that he cant get full . states that his stomach will hurt. states that he has regular BM daily. 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 however jimmie in pharmacy stated that the last time he picked up his meds someone in the lobby paid for them for him and he stated good i can go get some beer . last xray was WNL and last lab draw PSA was elevated. pt has no showed all referrals stating that he does not have transportation. i explained to pt that i am limited on how i can help him if he cannot go to his appts. assessment WNL today. pt is very dirty with bed bugs. i will order xray, per pt request, and lab work. pt also states that he has been soa just walking to mailbox so i will order inhaler. pt again is very sexually inappropriate with his conversation. and makes me feel uncomfortable. Karime Stevens, MIR [address] [facility], [place], [address], [employer] 05/21/2025 16:55:24 06/30/2025 text/html pt here today for medication [...] go to ER. Karime Stevens APRN [address] [place], [address], [facility] [employer] 06/30/2025 12:22:38 07/16/2025 text/html pt here today with c/o [...] daily maint inhaler. Karime Stevens APRN [address] [facility], [place], [address], [facility] [employer] 07/16/2025 15:06:23
--- OUTSIDE RECORDS SUMMARY | 2025-08-16 15:53 | XMS_ITS | Clinical Summary ---
Author Organization [facility] ([place], [place], [place], [place], [place]) Address [address] [place] [address] Care Team Providers Care Spring Repairer Helper Hand Name Role Phone Unavailable Primary Care Provider [...]
--- OUTSIDE RECORDS SUMMARY | 2025-08-16 15:53 | XMS_ITS | Clinical Summary ---
Author Organization [facility] Address [address] [place] [address] Care Team Providers Care Deputy Fire Chief Name Role Phone Karime Stevens Primary Care Provider [phone] Allergies No known active allergies Medications omeprazole (priLOSEC) 40 MG capsuleIndicati ons:Gastroesoph ageal reflux disease, unspecified whether esophagitis present Take 1 capsule by mouth Daily. 90 capsule 1 3 Active traZODone (DESYREL) 50 MG tablet Take 1 tablet by mouth Daily. 4 Active albuterol sulfate HFA 108 (90 Base) MCG/ACT inhaler 1-2 puffs every 4-6 hours as needed for cough or wheeze Active atorvastatin (LIPITOR) 80 MG tablet Take 1 tablet by mouth every night at bedtime. Active rOPINIRole (REQUIP) 2 MG tablet Take 1 tablet by mouth Every Evening. Active sertraline (ZOLOFT) 25 MG tablet Take 1 tablet by mouth every night at bedtime. Active ticagrelor (Brilinta) 90 MG tablet tablet Take 1 tablet by mouth 2 (Two) Times a Day. Active aspirin 81 MG chewable tablet Chew Daily. 5 Active Budeson-Glycopy rrol-Formoterol (Breztri Aerosphere) 160-9-4.8 MCG/ACT aerosol inhaler Inhale 2 puffs twice a day by inhalation route. 5 Active lisinopril (PRINIVIL,ZESTR IL) 20 MG tabletIndicatio ns:Hypertension , essential Take 1 tablet by mouth Daily. 30 tablet 6 5 08/05/20 26 Active lisinopril (PRINIVIL,ZESTR IL) 10 MG tablet Take 1 tablet by mouth Daily. 08/05/20 25 Discontin ued(*Ther apy completed ) Active Problems Problem Noted Date Diagnosed Date Chest pain, atypical 07/09/2025 Assessment & Plan (08/05/2025 2:30 PM EDT): Coronary artery disease invo lving assiniboine and sioux coronary artery of assiniboine and sioux heart 02/14/2023 Assessment & Plan (08/05/2025 2:30 PM EDT): {Coronary Artery Disease (OPTIONAL):27808} Assessment & Plan (07/09/2025 4:22 PM EDT): CAD-BMS to circumflex 2005, cath 2012 severe branch vessel diagonal and apical LAD [...] Patient to continue atorvastatin, Brilinta, and aspirin Assessment & Plan (06/04/2025 6:20 PM EDT): Coronary artery disease is stable. Continue current treatment regimen. Dietary sodium restriction. Regular aerobic exercise. Stop smoking. Cardiac status will be reassessed 6 weeks. CAD-BMS to circumflex 2005, cath 2011 severe branch vessel diagonal and apical LAD no stenting, NSTEMI 2013 Xience to ramus, cath 2019 CELESTE to LCx with 30 to 40% LAD. Patient reports chest pain to the point he felt like his heart was beating out of his chest with shortness of breath. He states he did not think to go to the ER. He states he did not do his nuclear stress test that was ordered last year and is agreeable that if I order the test he will go to the appointment. Gastroesophageal reflux disease 02/14/2023 Hypertension, essential 02/14/2023 Overview (02/14/2023): Well-controlled. Continue current medication. Assessment & Plan (08/05/2025 2:30 PM EDT): {Hypertension is (optional):2466628950} Orders: lisinopril (PRINIVIL,ZESTRIL) 20 MG tablet; Take 1 tablet by mouth Daily. Assessment & Plan (07/09/2025 4:20 PM EDT): His blood pressure is well-controlled in the office today 138/62. Patient to continue his lisinopril. Low-sodium diet Assessment & Plan (06/04/2025 6:21 PM EDT): Hypertension is stable and controlled Continue current treatment regimen. Blood pressure will be reassessed 6 weeks. Patient ot continue lisinopril. Nicotine dependence 11/18/2020 Insomnia 02/19/2020 Mixed hyperlipidemia 10/14/2019 Assessment & Plan (08/05/2025 2:30 PM EDT): {Hyperlipidemia A/P Block (Optional):0135450004} Orders: Lipid Panel; Future Assessment & Plan (07/09/2025 4:21 PM EDT): Last labs 12/29/2024 patient had no lipids. Plan to continue atorvastatin and aspirin. Assessment & Plan (06/04/2025 6:21 PM EDT): No recent lipids done. Patient to continue his atorvastatin. Chronic fatigue syndrome 07/01/2019 Left carotid artery occlusion 04/14/2019 Tension-type headache 04/02/2019 Mild major depression, single episode 08/01/2018 BPH (benign prostatic hyperplasia) 02/19/2018 Hypothyroidism 10/19/2016 Restless legs 10/19/2016 Encounters Date Type Department Care Team Description 08/05/2025 2:00 PM EDT Office Visit [facility] [address] [place] [address] Bhargavi Crouch, LOADER OPERATOR Chest pain, atypical (Primary Dx); Coronary artery disease of assiniboine and sioux artery of assiniboine and sioux heart with stable angina pectoris; Hypertension, essential; Mixed hyperlipidemia 08/05/2025 1:30 PM EDT Ancillary Procedure [facility] [address] [place] [address] Coronary artery disease of assiniboine and sioux artery of assiniboine and sioux heart with stable angina pectoris 08/05/2025 Travel 07/29/2025 5:00 AM EDT Outside Facility Service [facility] [address] [place] [address] Britt Manjarrez MD Coronary artery disease of assiniboine and sioux artery of assiniboine and sioux heart with stable angina pectoris; Chest pain, atypical 07/09/2025 2:00 PM EDT Office Visit [facility] [address] [place] [address] Alpa Miller APRN Coronary artery disease involving assiniboine and sioux coronary artery of assiniboine and sioux heart with unstable angina pectoris (Primary Dx); Chest pain, atypical; Hypertension, essential; Left carotid artery occlusion; Mixed hyperlipidemia 07/09/2025 Travel 06/04/2025 9:15 AM EDT Office Visit [facility] [address] [place] [address] Alpa Miller APRN Coronary artery disease of assiniboine and sioux artery of assiniboine and sioux heart with stable angina pectoris (Primary Dx); Chest pain, atypical; Mixed hyperlipidemia; Hypertension, essential 06/04/2025 Travel from Last 3 Months Immunizations Immunization Administration Dates Next Due 31-influenza Vac Quardvalent Preservativ 018 Flu Vaccine Split Quad 07/11/2017 Fluzone >6mos 07/18/2012 Fluzone High-Dose 65+YRS 07/14/2016 Influenza MDCK Quadrivalent with Preserative 08/05/2019 Influenza Seasonal Injectable 07/11/2010, 007,07/30/2007 Pneumococcal Polysaccharide (PPSV23) 08/01/2018 Td, Unspecified 07/06/2015 flucelvax quad pfs =>4 YRS 08/05/2019 Family History Medical History Relation Name Comments Alzheimer's disease Other FAMILY HISTORY Coronary artery disease Other FAMILY HISTORY Relation Name Status Comments Father (Age 94) Mother (Age 74) Other FAMILY HISTORY Social History Tobacco Use Types Packs/Day Years [...] file Not on file Not on file Last Filed Vital Signs Vital Sign Reading [...] Mass Index 22.49 08/05/2025 1:53 PM EDT Plan of Treatment Upcoming Encounters Date Type Department Care Team (Late st Contact Info) Description 09/15/2025 1:30 PM EST Office Visit [facility] [address] [place] [address] Bhargavi Crouch APRN [address] [place] [address] Health Maintenance Due Date Last Done Comments ZOSTER VACCINE (1 of 2) 1997 Pneumococcal Vaccine 50+ (2 of 2 - PCV) 08/01/2019 08/01/2018 RSV Vaccine - Adults (1 - 1- dose 75+ series) 2022 ANNUAL WELLNESS VISIT 01/02/2023 HEPATITIS C SCREENING 01/02/2023 INFLUENZA VACCINE 05/15/2025 08/05/2019, , 07/24/2018, Additional history exists COVID-19 Vaccine (3 - 2024-2 6 season) 2025 11/17/2021, 03/24/2021 LIPID PANEL 08/07/2026 08/07/2025 TDAP/TD VACCINES (2 - Td or Tdap) 10/04/2033 023, 07/06/2015 Procedures Procedure Name Priority Date/Time Associated Diagnosis Comments LIPID PANEL Routine 08/07/2025 Mixed hyperlipidemia ECHO COMPLETE W/ DOPPLER AND COLOR FLOW Routine 08/05/2025 2:05 PM EDT Coronary artery disease of assiniboine and sioux artery of assiniboine and sioux heart with stable angina pectoris OUTSIDE NON-INVASIVE CARDIOLOGY STUDY Routine 07/29/2025 Coronary artery disease of assiniboine and sioux artery of assiniboine and sioux heart with stable angina pectoris Chest pain, atypical ECG 12-LEAD Routine 06/04/2025 10:31 AM EDT Coronary artery disease of assiniboine and sioux artery of assiniboine and sioux heart with stable angina pectoris from Last 3 Months Results * Lipid Panel (08/07/2025) Blood Bhargavi Crouch APRN LAB BLOOD ORDERABLES Final Result [facility]
[address] [place] [address], * ECHO COMPLETE W/ DOPPLER AND COLOR [...] CV CARDIAC SERVICES ORDERABL ES Final Result * (ABNORMAL) ECG 12-LEAD (06/04/2025 10:31 AM EDT) Narrative ECG - 06/04/2025 10:31 AM EDT Alpa Miller APRN 06/04/2025 6:22 PM ECG 12 Lead Date/Time: 06/04/2025 10:31 AM Performed by: Alpa Miller APRN Authorized by: Alpa Miller APRN Comparison: compared with previous ECG from 07/17/2024 Comparison to previous ECG: Sinus rhythm, left anterior fascicular block Rhythm: sinus rhythm Rate: normal BPM: 69 ST Segments: ST segments normal T Waves: T waves normal Other findings: prolonged QTc interval Clinical impression: abnormal EKG Alpa Miller APRN ECG ORDERABLES Edited Resul t - Final ECG from Last 3 Months Insurance [employer] MEDICARE A & B Care Teams Deputy Fire Chief Relationship Specialty Start Date End Date [place] [address] PCP - General Nurse Practitioner 07/06/23
--- OUTSIDE RECORDS SUMMARY | 2025-08-16 15:53 | XMS_ITS | Encounter Summary ---
Author Organization [facility] ([place], [place], [place], [place], [place]) Address [address] [place] [address] Care Team Providers Care Medical Library Assistant Name Role Phone Unavailable Primary Care Provider Unavailabl e Encounter Details Date Type Department Care Team (Late st Contact Info) Description 12/04/[address] [facility] Family Medicine [facility] [place] [address] ProviderPhyllis MD [facility] [place] [address] Social History Tobacco Use Types Packs/Day Years Used Date Smoking Tobacco: Never Assessed Sex and Gender Information Value Date Recorded Sex Assigned at Not on file Legal Sex Male 3:35 PM CDT Gender Identity Not on file Sexual Orientation Not on file documented as of this encounter Miscellaneous Notes * [employer]ner Conversion Note - Phyllis ProviderMD - 12/04/2019 5:41 PM [employer]OOK [employer]ABLE Stroke/Warfarin Instructions Entered On: 12/04/2019 17:42 EST Performed On: 12/04/2019 17:41 EST by ROSALINE CALERO RN Stroke/Warfarin Instructions Stroke/TIA Discharge Ins : Open Warfarin Discharge Ins : N/A ROSALINE CALERO RN - 12/04/2019 17:41 EST Stroke/TIA Discharge Instructions Individualized Stroke Risk Factors *Q : Coronary artery disease, High cholesterol, Hypertension/High blood pressure, Peripheral vascular disease, Other: snuff Stroke Education Handouts Given *Q : Yes ROSALINE CALERO RN - 12/04/2019 17:41 EST Stroke Education Materials Given-Grid Activation of EMS *Q : Verbalizes understanding Follow-up Care After Discharge *Q : Verbalizes understanding Medications prescribed at DC *Q : Verbalizes understanding Risk Factors for Stroke *Q : Verbalizes understanding Warning S&S of Stroke *Q : Verbalizes understanding ROSALINE CALERO RN - 12/04/2019 17:41 EST Stroke/TIA Signs/Symptoms to Report Immediately : Sudden onset difficulty speaking, Sudden onset difficulty understanding speech, Sudden onset change in vision, Sudden onset weakness particulary on one side of the body, Sudden onset numbness/tingling, Sudden severe headache, Sudden dizziness or trouble with gait, Call : EMS activation is crucial My LDL Level: : LDL Level No qualifying data available. ROSALINE CALERO RN - 12/04/2019 17:41 EST Electronically signed by Padma [facility] Conversion Director Biostatistics Cerner at 02/01/2023 8:32 AM CDT documented in this encounter Plan of Treatment Not on file documented as of this encounter Visit Diagnoses Not on filedocumented in this encounter
--- OUTSIDE RECORDS SUMMARY | 2025-08-16 15:53 | XMS_ITS | Encounter Summary ---
Author Organization [employer] ([place], [place], [place], [place], [place]) Address [address] [place] [address] Care Team Providers Care Golf Course Assistant Name Role Phone Unavailable Primary Care Provider Unavailabl e Encounter Details Date Type Department Care Team (Late st Contact Info) Description 12/04/2019 Transcribed Document [facility] [place] [address] ProviderPhyllis MD [facility] [place] [address] Social History Tobacco Use Types Packs/Day Years Used Date Smoking Tobacco: Never Assessed Sex and Gender Information Value Date Recorded Sex Assigned at Not on file Legal Sex Male 3:35 PM CDT Gender Identity Not on file Sexual Orientation Not on file documented as of this encounter Miscellaneous Notes * Cerner Conversion Note - Historical ProviderMD - 12/04/2019 10:16 AM ELECTRONIC CONSOLE DISPLAY OPERATOR Pre Procedure Adult Entered On: 12/04/2019 10:23 EST Performed On: 12/04/2019 10:16 EST by Elizabeth Dougherty RN Height and Weight, Clinical Dosing Height Source : Stated Height Entry Format : Stephenson Height, Feet : 5 ft(Converted to: 152 cm, 60 Inch) Height, Inches : 4 Inch(Converted to: 0 ft 4 Inch, 10.16 cm) Clinical Height : 162.56 cm Weight Source : Standing scale Weight Entry Format : Stephenson Clinical Dosing Weight : 55.45 kg Weight, Pounds : 122 lb Body Surface Area (BSA) : 1.59 m2 Body Mass Index : 21 kg/m2 Moore Body Weight : 58 kg Elizabeth Dougherty RN - 12/04/2019 10:16 EST Health Histories Smoking Status : Former smoker, quit more than 30 days ago Smokeless Tobacco Status : Smokeless tobacco user within last 30 days Desires Tobacco Cessation Medication : No Reason for No Tobacco Cessation Medication : ED/procedural patient only Elizabeth Dougherty RN - 12/04/2019 10:16 EST Social History (As Of: 12/04/2019 10:23:20 EST) Tobacco: Former smoker, quit more than 30 days ago Smoking Status. Smokeless tobacco user within last 30 days Smokeless Tobacco Status. Snuff/Dip Smokeless Tobacco Use History. Packs/Tins Daily: 5. Last Used: quit smoking early . Still dips daily. (Last Updated: 12/04/2019 10:17:24 EST by Elizabeth Dougherty, RN) Alcohol: Use in Last 12 Months: Yes. Total Drinks/Week: 2. (Last Updated: 06/06/2014 20:37:47 EDT by JAQUI LOGAN, RN) Substance Abuse: Drug Use Hx: No. Use in Last 12 Months: No. (Last Updated: 06/06/2014 20:38:12 EDT by JAQUI LOGAN, RN) Infectious Disease History Physical contact outside [place] in the last 30 days : No Infectious Disease History : Chicken pox/Shingles Tuberculosis Symptoms : None Elizabeth Dougherty RN - 12/04/2019 10:16 EST Anesthesia/Transfusion History Family History of Anesthesia Reaction : No prior transfusion(s) Blood Transfusion Acceptable to Patient : Yes Transfusion History : Prior anesthesia without reaction Family History of Anesthesia Reaction : None Elizabeth Dougherty RN - 12/04/2019 10:16 EST Functional Assessment Living Situation : Home Patient Lives With : Significant other(s) Current Home Treatments : None Elizabeth Dougherty RN - 12/04/2019 10:16 EST [place] Suicide Severity Rating Scale (C-SSRS) CSSRS Past Month Wish to be : No CSSRS Past Month Suicidal Thoughts : No CSSRS Lifetime Suicide Behavior : No Suicide Severity Rating Score : 0 Suicide Severity Rating : No Additional Care Required at this time Elizabeth Dougherty RN - 12/04/2019 10:16 EST Psychosocial History Currently in Unsafe Situation : No Elizabeth Dougherty RN - 12/04/2019 10:16 EST Advance Directive Patient has Advance Directive *Q : No, patient refuses Advance Directive information Elizabeth Dougherty RN - 12/04/2019 10:16 EST Teaching/Learning Assessment Barriers To Learning : None evident Individuals Taught : Patient, Significant other Highest Level of Education : High school Learning Style Preferences Patient : Verbal explanation Learning Style Preferences Family : Verbal explanation Elizabeth Dougherty RN - 12/04/2019 10:16 EST Education Topics, Periop Preadmission Perioperative Education [place] : Verbalizes understanding Infection Control : Verbalizes understanding IV's : Verbalizes understanding NPO Status/Directions : Verbalizes understanding Pain Management : Verbalizes understanding Preprocedure Preparations : Verbalizes understanding Preprocedure Tests/Labs : Verbalizes understanding Elizabeth Dougherty RN - 12/04/2019 10:16 EST General Info Arrived From : Home Mode of Arrival on Unit : Ambulatory Patient Arrival Date/Time : 12/04/2019 9:46 EST Legal Guardian : Significant other Support Person/Patient Check Totaler : No Support Person/Pt Rep Name : Ligia [phone] Yamileth Acharya [phone] Want Family/Rep/Phys Notified of Admit : No Emergency Contact #1 : see above Emergency Contact #1 Phone Number : see above Emergency Contact #1 Relationship : see above Emergency Contact #2 : see above Emergency Contact #2 Phone Number : see above Emergency Contact #2 Relationship : see above Information Obtained From : Patient Primary Language : [place] Communication Barrier : None Elizabeth Dougherty RN - 12/04/2019 10:16 EST Vital Measurements Temperature Source : Temporal artery scanning Temperature Mode : Fahrenheit Temperature, Fahrenheit : 98.8 Deg F Clinical Temperature, C : 37.1 Deg C Peripheral Pulse Rate : 76 bpm Systolic Blood Pressure : 125 mmHg Diastolic Blood Pressure : 85 mmHg Oxygen Saturation : 100 % Oxygen Therapy Mode : Room air Elizabeth Dougherty RN - 12/04/2019 10:16 EST Sleep Apnea Risk Assmt Hx of Obstructive Sleep Apnea Diagnosis : No Snore Loudly : Yes Tired, Fatigued, or Sleepy During Day : No Observed Stopping Breathing During Sleep : No Have/Are Being Treated for Hypertension : Yes BMI Greater Than 35 kg/m2 : No Age over 50 Years Old : Yes Neck Circumference Greater Than 40 cm : No Gender Male : Yes STOP-BANG Sleep Apnea Risk Level Score : 4 Elizabeth Dougherty RN - 12/04/2019 10:16 EST Jose D Scale Jose D Sensory Perception : No impairment Jose D Moisture : Rarely moist Jose D Activity : Walks frequently Jose D Mobility : Slightly limited Jose D Nutrition : Adequate Jose D Friction and Shear : No apparent problem Jose D Score : 21 Elizabeth Dougherty RN - 12/04/2019 10:16 EST Pain Assessment Pain Assessment : Initial assessment Pain Scale Used : 0-10 Scale Elizabeth Dougherty RN - 12/04/2019 10:16 EST Fall Risk Scales ABCs Fall Injury Risk Identification : Coagulation ABC Fall Injury Risk : Moderate to high injury risk URIOSTEGUI Hx Falls Immediate/Within 3 Months : No Uriostegui Secondary Diagnosis : No URIOSTEGUI Use of Ambulatory Aid : None URIOSTEGUI IV Therapy or IV Access : Yes Uriostegui Gait/Transferring : Normal, bedrest, immobile Uriostegui Mental Status : Oriented to own ability Uriostegui Fall Risk Score : 20 URIOSTEGUI Fall Scale Risk Level : 0-24 Low Risk [place] Fall Interventions : Adequate lighting, Bed in low position, Call device within reach, Hourly comfort/safety rounds, Non-slip footwear, Personal items within reach, Room free of clutter/spills, Upper side-rails up, Wheels locked, Wires/Cords secured Elizabeth Dougherty RN - 12/04/2019 10:16 EST Valuables and Belongings Valuables and Belongings : Clothing, Jewelry, Personal items, Medications Clothing : Common streetwear Clothing Disposition : Bedside, With family, Declines to send to security/safe Jewelry : Ring, Watch Jewelry Disposition : With patient, Declines to send to security/safe Personal Items : Wallet Personal Items Disposition : With family, Declines to send to security/safe Medication Disposition : With family, Declines to send to security/safe Medication Brought With Patient : Yes Elizabeth Dougherty RN - 12/04/2019 10:16 EST Pain Scale Intensity : 0 Elizabeth Dougherty RN - 12/04/2019 10:16 EST Image 4 - Images currently included in the form version of this document have not been included in the text rendition version of the form. Electronically signed by Margy Rouse Conversion Operations Administrative Assistant Cerner at 02/01/2023 8:48 AM CDT documented in this encounter Plan of Treatment Not on file documented as of this encounter Visit Diagnoses Not on filedocumented in this encounter
--- OUTSIDE RECORDS SUMMARY | 2025-08-16 15:53 | XMS_ITS | Encounter Summary ---
Author Organization [facility] Address [address] [place] [address] Care Team Providers Care Chlorinator Operator Name Role Phone Karime Stevens Primary Care Provider [phone] Encounter Details Date Type Department Care Team (Latest Contact Info) Description 07/09/2025 Travel Social History Tobacco Use Types Packs/Day [...] [facility] [address] [place] [address] Bhargavi Crouch APRN [address] [place] [address] documented as of this encounter Visit Diagnoses Not on filedocumented in this encounter Care Teams Chlorinator Operator Relationship Specialty Start Date End [place] [address] PCP - General Nurse Practitioner 07/06/23 documented as of this encounter
--- OUTSIDE RECORDS SUMMARY | 2025-08-16 15:53 | XMS_ITS | Encounter Summary ---
Author Organization [employer] ([place], [place], [place], [place], [place]) Address [address] [place] [address] Care Team Providers Care Floor Supervisor Name Role Phone Unavailable Primary Care Provider Unavailabl e Encounter Details Date Type Department Care Team (Late st Contact Info) Description 12/04/2019 Transcribed Document [facility] [place] Family Medicine [address] [place] [address] ProviderPhyllis MD [facility] [place] [address] Social History Tobacco Use Types Packs/Day Years Used Date Smoking Tobacco: Never Assessed Sex and Gender Information Value Date Recorded Sex Assigned at Not on file Legal Sex Male 3:35 PM CDT Gender Identity Not on file Sexual Orientation Not on file documented as of this encounter Miscellaneous Notes * Cerner Conversion Note - Phyllis Yost MD - 12/04/2019 5:42 PM CLIENT SERVICES ADMINISTRATOR [facility] [place] [place] [address] SHAI GARSIA JR :1945 Visit Time:12/04/2019 Your Visit Summary Your Care Team Admitting Physician - VINAY CANTU MD-CAR Attending Physician - VINAY CANTU MD-CAR Primary Care Physician - DEIRDRE, NOT LISTED Referring Physician - VINAY CANTU MD-CAR Your Diagnosis Atherosclerotic heart disease of [place] coronary artery with unstable angina pectoris, Atherosclerotic heart disease of [place] coronary artery with unstable angina pectoris Discharge Vitals Heart Rate (Monitored) 70 Respiratory Rate 20 Blood Pressure 114/70 What to do next Instructions From Your Care Team Diet after Discharge: Heart healthy diet Activity after Discharge: Rest and relax today, No strenuous activity Lifting Restrictions: see post radial sheet for activity restriction Driving after Discharge: Do not drive for 24 hours May Return to Work/School: Showering/Bathing: May shower in 24 hours, No tub bathing, soaking or swimming for 3- 5days Notify Provider of: Monitor site for bleeding. If bleeding occurs, apply manual pressure and call 911 Wound/Incision Care after Discharge: Remove dressing in 24 hours Follow-Up Appointments Follow Up with ESSENCE MANJARREZ When 12/31/2019 10:40 AM EDT Comments ECHO same day as office visit with Dr Manjarrez Where: [address] [place] [id number] [facility] (1) Medications What How Much When Instructions Next Dose aspirin 81 Milligram(s) Oral Every Day atorvastatin 40 Milligram(s) Oral At Bedtime lisinopril 10 Milligram(s) Oral Every Day ticagrelor (Brilinta (ticagrelor) 90 mg oral tablet) 1 Tablet(s) Oral Two Times A Day metoprolol (Metoprolol Tartrate) 25 Milligram(s) Oral Two Times A Day rOPINIRole 2 Milligram(s) Oral At Bedtime sertraline 25 Milligram(s) Oral At Bedtime continue all meds as ordered by your physician Take your medications faithfully. Do NOT skip medication. Do NOT stop taking medications without the direction of a physician. Carry a list of your medications with you at all times, and take this medication list with you to your first follow up visit. Report any side effects. Avoid herbal remedies unless discussed with your physician. As part of your treatment plan, your physician may have prescribed a limited course of a controlled substance. This medication may be given to help people with moderate or severe pain or for other medical conditions, but there are risks involved with treatment. Common side effects may include nausea, constipation, drowsiness, sweating, itching, dry mouth, and rash. More serious side effects may include cognitive and motor impairment, like problems with thinking, concentrating, alertness, and movement (e.g. slowed reflexes), and driving and operating heavy machinery can be dangerous. It is important for you to talk to your physician if you have these side effects or questions. These controlled substances can produce physical dependence and be habit-forming if taken for an extended period of time, which means that the body has gotten used to them and may experience withdrawal symptoms if they are abruptly stopped. Withdrawal symptoms can include runny nose, sweating, goose bumps, diarrhea, abdominal cramping, rapid heartbeat, difficulty sleeping, and nervousness. Please dispose of unused and medications per your retail pharmacy guidance. Allergies No Known Allergies Immunizations This Visit No Immunizations Found Stroke/TIA Instructions Individualized Stroke Risk Factors Individualized Stroke Risk Factors *Q: Coronary artery disease, High cholesterol, Hypertension/High blood pressure, Peripheral vascular disease, Other: snuff Stroke/TIA Signs/Symptoms to Report Immediately: Sudden onset difficulty speaking, Sudden onset difficulty understanding speech, Sudden onset change in vision, Sudden onset weakness particulary on one side of the body, Sudden onset numbness/tingling, Sudden severe headache, Sudden dizziness or trouble with gait, Call : EMS activation is crucial Mutually Agreed Upon Goals My LDL Level: My LDL Level: Education Materials Coronary Angiogram With Stent, Care After This [...] (catheter) was inserted. This usually fades within 1???2 weeks. ??? Blood collecting in the tissue (hematoma) that may be painful to the touch. It should usually decrease in size and tenderness within 1???2 weeks. Follow these instructions at home: Insertion area care ??? Do not take baths, swim, or use a hot tub until your health care provider approves. ??? You may shower 24???48 hours after the procedure or as directed by your health care provider. ??? Follow instructions from your health care provider about how to take care of your incision. Make sure you: ? Wash your hands with soap and water before you change your bandage (dressing). If soap and water are not available, use hand jig boring machine set up operator. ? Change your dressing as told by [...] of beer, 5 oz of wine, or 1?? oz of hard liquor. Lifestyle ??? Do not use any products that contain nicotine or tobacco, such as cigarettes and e-cigarettes. If you need help quitting, ask your health care provider. ??? Take steps to manage and control your weight. ??? Get regular exercise. ??? Manage your blood pressure. ??? Manage other health problems, such as diabetes. General instructions ??? Take wvos-vxr-nlvysin and prescription medicines only as told by [...] 04/20/2006 Document Revised: 06/28/2017 Document Reviewed: 06/28/2017 [employer] Interactive Patient Education ?? 2019 [employer]. Radial Site Care Introduction Refer to this [...] the radial site that usually fades within 1???2 weeks. ??? Blood collecting in the tissue (hematoma) that may be painful to the touch. It should usually decrease in size and tenderness within 1???2 weeks. Follow these instructions at home: ??? Take medicines only as directed by your health care provider. ??? You may shower 24???48 hours after the procedure or as directed [...] health care provider when it is okay to: ? Return to work or school. ? Resume [...] 11/03/2011 Document Revised: 03/08/2017 Document Reviewed: 04/19/2015 ?? 2017 [facility] Heart-Healthy Eating Plan Heart-healthy meal planning includes: [...] plate with vegetables and green salads. Eat 4???5 servings of vegetables per day. A serving of vegetables is: ? 1 cup of raw leafy vegetables. ? ?? cup of raw or cooked cut-up vegetables. ? ?? cup of vegetable juice. ??? Fill one fourth of your plate with whole grains. Look for the word whole as the first word in the ingredient list. ??? Fill one fourth of your plate with lean protein foods. ??? Eat 4???5 servings of fruit per day. A serving of fruit is: ? One medium whole fruit. ? ?? cup of dried fruit. ? ?? cup of fresh, frozen, or canned fruit. ? ?? cup of 100% fruit juice. ??? Eat more foods that contain soluble fiber. These include apples, broccoli, carrots, beans, peas, and barley. Try to get 20???30 g of fiber per day. ??? Eat [...] weight if you are overweight. ??? Eat 4???5 servings of nuts, legumes, and seeds per week: ? One serving of dried beans or legumes equals ?? cup after being cooked. ? One serving of nuts equals 1?? ounces. ? One serving of seeds equals ?? ounce or one tablespoon. ??? You may need to keep track of how much salt or sodium you eat. This is especially true if you have high blood pressure. Talk with your doctor or dietitian to get more information. What foods can I eat? Grains Breads, including [place]an, white, neelam, wheat, raisin, rye, oatmeal, and [place]. Tortillas that are neither fried nor made with lard or trans fat. Low-fat rolls, including hotdog and hamburger buns and [place] muffins. Biscuits. Muffins. Waffles. Pancakes. Light popcorn. Whole-grain cereals. Flatbread. Tere toast. Pretzels. Breadsticks. Rusks. Low-fat snacks. Low-fat [...] cooking, baking, salads, and as spreads. Other [place] powder. Coffee and tea. All seasonings and [...] cottage cheese. Whole-milk cheeses, including blue (tera), [place], Brie, Bakari, [place]ander, Havarti, Australian, cheddar, Camembert, and [place]. Whole or 2% milk that is liquid, [...] that has suet, meat fat, or shortening. [place] butter, hydrogenated oils, palm oil, coconut oil, [...] 04/01/2013 Document Revised: 03/08/2017 Document Reviewed: 03/25/2015 [employer] Interactive Patient Education ?? 2019 [employer] Moderate Conscious Sedation, Adult, Care After [...] you are awake and alert. ??? Take ndwn-zct-ajpvwju and prescription medicines only as told by [...] 07/22/2014 Document Revised: 03/05/2017 Document Reviewed: 01/20/2017 [employer] Interactive Patient Education ?? 2019 [employer]. Smokeless Tobacco Information, Adult Tobacco use is [...] saliva mixes with the tobacco to make ???tobacco juice?? that is swallowed or spit out. How [...] quitting from these sources: ??? National Cancer [place]: www.cancer.gov ??? [place] Cancer Society: www.cancer.org When should I seek [...] Document Reviewed: 05/12/2016 [employer] Interactive Patient Education ?? 2019 [employer] Emergency Awareness and Preventative Care STROKE is an EMERGENCY Every Minute Counts Act FAST and Check for these signs: FACE Does the face look uneven? ARM Does one arm drift down? SPEECH Does their speech sound strange? TIME Call at any sign of stroke Stroke Risk Factors Atrial Fibrillation (irregular heartbeat) Diabetes Family history of stroke Heart Disease Heavy alcohol use High Blood Pressure High Cholesterol Physical inactivity and obesity Smoking Cigarette Smoking The facts are clear, cigarette smoking will shorten your life. Smoking can cause many illnesses along the way. As a healthcare provider, we recommend that you stop smoking. Assistance with quitting is available by contacting 9-707-MGBJNOW. This is a free resource providing counseling, support, and referral. Or you may contact your personal physician. National Suicide Prevention Lifeline: The National Suicide Prevention Lifeline is a national network of local crisis centers that provides free and confidential emotional support to people in suicidal crisis or emotional distress 24 hours a day, 7 days a week. Don't Wait! Stop a Heart Attack Before it Starts What is a heart attack? A heart attack is damage or to a part of the heart from severely decreased or lack of blood flow to the heart. Over time, arteries can become narrow from the buildup of fat and cholesterol, which is called plaque. The plaque can rupture causing a blood clot to form. When the blood clot forms, the artery can become severely narrowed or completely blocked, causing a heart attack. Heart attack is the leading cause of in the [place]. 85% of muscle damage occurs within the first 2 hours. Delay in the recognition of heart attack symptoms increases the chances of . Know the early symptoms of a heart attack: Nausea Feeling of fullness in chest Jaw Pain Pain that travels down one or both arms Fatigue/being tired Anxiety Back Pain Chest pressure, squeezing, or discomfort Shortness of breath Sweating, or a cold sweat Feeling of impending doom There are unusual signs of a heart attack, too! Women, the elderly, and diabetics may present with atypical symptoms: Fainting/dizziness Weakness Confusion Risk Factors for a Heart Attack Some heart disease risk factors, such as age and family history, cannot be changed. Others, like smoking and lack of exercise, can be changed. Smoking High Cholesterol High Blood Pressure Family History Obesity Age Gender (Males are at higher risk) Lack of Exercise Diabetes Diet Stress Excessive Alcohol Intake If you or someone you know is experiencing the signs and symptoms of a heart attack, DON???T DELAY. Call immediately and seek help. If someone collapses, perform CPR! Do not attempt to drive if you are having symptoms of heart attack. Hands-Only CPR Why Hands-Only CPR? Hands-Only CPR has been shown to be as effective as conventional CPR for cardiac arrests that occur outside of a hospital. Survival depends on immediately receiving CPR from someone nearby. How do you perform Hands-Only CPR? There are two easy steps: Call if you see a teen or adult collapse Push hard and fast in the center of the chest at a beat of 100 beats per minute. Save a life! 4 WAYS TO GET AHEAD OF SEPSIS SEPSIS is a MEDICAL EMERGENCY. Time matters! Infections put you and your family at risk for a life-threatening condition called sepsis. Sepsis is the body's extreme response to an infection. It is life-threatening, and without timely treatment, sepsis can rapidly lead to tissue damage, organ failure, and . Sepsis happens when an infection you already have-in your skin, lungs, urinary tract or somewhere else-triggers a chain reaction throughout your body. 1 PREVENT INFECTIONS Take good care of chronic conditions. Talk to your doctor about getting the recommended vaccines. 2 PRACTICE GOOD HYGIENE Wash your hands frequently. Keep cuts or open sores clean and covered until they are healed. 3 KNOW THE SYMPTOMS Confusion or disorientation Shortness of breath High heart rate Fever, shivering, or feeling very cold Extreme pain or discomfort Clammy or sweaty skin 4 ACT FAST Get medical care IMMEDIATELY if you suspect sepsis or if you have an infection that is not getting better or is getting worse. To learn more about sepsis and how to prevent infections, visit www.cdc.gov/sepsis. Test Results Laboratory or Other Results This Visit (last charted value for your 12/04/2019 visit) Hematology 12/04/2019 10:13 AM Hemoglobin POC: 15.0 Gram/dL -- Normal range between ( 12.0 and 17.0 ) Hematocrit POC: 44.0 % -- Normal range between ( 38.0 and 51.0 ) 12/04/2019 9:53 AM Platelet Count: 253 K/uL -- Normal range between ( 163 and 369 ) General Chemistry 12/04/2019 10:17 AM eGFR : 161 mL/min/1.73m2 eGFR NonAfrican: 132 mL/min/1.73m2 Creatinine POC: 0.6 mg/dL -- Normal range between ( 0.6 and 1.3 ) 12/04/2019 10:13 AM Sodium POC: 142 mmol/L -- Normal range between ( 138 and 146 ) Potassium POC: 3.9 mmol/L -- Normal range between ( 3.5 and 4.9 ) Coagulation 12/04/2019 11:17 AM ACT POC: 263 Second(s) -- Normal range between ( 74 and 137 ) Vascular Ultrasound 12/04/2019 11:48 AM VL Vascular Access: VL Vascular Access Patient Name:SHAI GARSIA JR I have received and understand this information and was given the opportunity to ask questions. Patient/Signwriter Name: Patient/Signwriter Signature: Relationship to Patient: Clinician/Hospital Signwriter Signature: Date: documented in this encounter Plan of Treatment Not on file documented as of this encounter Visit Diagnoses Not on filedocumented in this encounter
[2025-08-16 15:54] LABS: Hematocrit 45.2 % (42.0-52.0); Hemoglobin 14.4 g/dL (14.1-18.0); Immature Granulocytes % 1.3 %; Mean Corpuscular HGB Conc 31.9 g/dL (31.8-35.4); Mean Corpuscular Hemoglobin 29.0 pg (27.0-31.2); Mean Corpuscular Volume 90.9 fl (80-94); Nucleated Red Blood Cells % 0 %; Platelet Count 228 K/mm3 (142-424); Red Blood Count 4.97 M/mm3 (4.60-6.20); Red Cell Distribution Width-SD 52.7 fL; White Blood Count 9.5 K/mm3 (4.8-10.8)
--- NOTE | 2025-08-16 15:55 | PC.NURSE ---
Patient went to scans
[2025-08-16 16:00] LABS: Alanine Aminotransferase 37 U/L (12-78); Albumin Level 4.6 g/dl (3.5-5.0); Albumin/Globulin Ratio 1.0 (1.1-1.8); Alkaline Phosphatase 180 U/L (38-126); Anion Gap 17.0 mEq/L (5-15); Aspartate Amino Transferase 33 U/L (17-59); Bilirubin,Total 0.9 mg/dl (0.2-1.3); Blood Urea Nitrogen 17 mg/dl (9-20); Calcium 9.3 mg/dl (8.4-10.2); Carbon Dioxide 24 mmol/L (22.0-30.0); Chloride 106 mmol/L (98-107); Creatinine Clearance Estimated 64 mL/min (50-200); Creatinine,Serum 0.90 mg/dl (0.66-1.25); Estimated Glomerular Filt Rate 82 ml/min (>60); GFR (African American) 99 ML/MIN (>60); Globulin 4.4 g/dL (1.3-3.2); Glucose 97 mg/dl (74-100); Potassium 4.0 mmoL/L (3.5-5.1); Sodium 143 mmol/L (136-145); Total Protein,Serum 9.0 g/dl (6.3-8.2)
[2025-08-16 16:12] LABS: NT Pro Brain Natriuretic Pep. 486 pg/mL (0-450); RBC Morphology Normal; Total Cells Counted 100
[2025-08-16 16:14] LABS: Troponin I < 0.01 ng/ml (0.00-0.034)
--- NOTE | 2025-08-16 16:58 | PC.NURSE ---
Went in patients room due to him hollering. Patient asked me if could put a dip in, I said no.
[2025-08-16 17:02] LABS: Hepatitis C Ab Qual. W/ RFX NEGATIVE (Negative)
[2025-08-16 19:04] LABS: Troponin I < 0.01 ng/ml (0.00-0.034)
--- NOTE | 2025-08-16 19:19 | PC.NURSE ---
Brother in law contacted and made aware of discharge status.
== END 2025-08-16 19:52 | disposition home or self-care (01) ==
PROVIDERS: Emergency Provider Student in an Organized Health Care Education/Training Program; PCP Nurse Practitioner
DX: R07.9 Chest pain, unspecified (principal); R06.02 Shortness of breath; F17.290 Nicotine dependence, other tobacco product, uncomplicated; I10 Essential (primary) hypertension; Z86.79 Personal history of other diseases of the circulatory system; Z79.02 Long term (current) use of antithrombotics/antiplatelets; Z95.5 Presence of coronary angioplasty implant and graft
CPT/HCPCS: 71046; 80053; 83880; 84484; 85007; 85025; 86803; 87389; 93005; 99284; 99285